=== PATIENT | male | born 1960 | race Caucasian/White ===

== ENCOUNTER → 2017-12-08 12:16 | Outpatient (CLI) | payer BC, SELFPAY ==
--- NOTE | 2017-12-08 12:21 | US_ITS ---
STUDY: RENAL ULTRASOUND - COMPLETE REASON FOR EXAM: Male, 57 years old. TECHNIQUE: Ultrasound evaluation of the kidneys was performed with real-time and static oliveros-scale imaging. COMPARISON: None. FINDINGS: RIGHT KIDNEY: Normal location of the right kidney, which is normal in size. The right kidney measures 11.1 x 5.4 x 3.9 cm. There is a normal cortex of the right kidney. The renal cortex measures 1.5 cm. A small 1 cm cyst. There are no right renal calculi. There is no right hydronephrosis. LEFT KIDNEY: Normal location of the left kidney, which is normal in size. The left kidney measures 10.5 x 4.9 x 5.2 cm. There is a normal cortex of the left kidney. The renal cortex measures 1.8 cm. 1.8 cm cyst There are no left renal calculi. There is no left hydronephrosis. BLADDER: The distended urinary bladder has a volume of 459 ml. The empty urinary bladder has a volume of ml. There is a normal wall thickness of the distended urinary bladder. There is no demonstrated mass within the urinary bladder. There are no demonstrated bladder calculi. US/Kidney and Bladder IMPRESSION: Bilateral small renal cysts. No hydronephrosis. The urinary bladder fills well to a capacity of almost 460 mL Electronically Signed: Gilberto lEi, at 7:26 EDT Tel , Service support ,
== END ==
PROVIDERS: Family Provider Internal Medicine; PCP Internal Medicine; Visit Provider Internal Medicine
DX: N28.9 Disorder of kidney and ureter, unspecified (principal)
CPT/HCPCS: 76770

== ENCOUNTER → 2018-06-02 06:07 | Outpatient (CLI) | payer OTHER, SELFPAY ==
--- NOTE | 2018-06-02 09:17 | STRESSREP_ITS ---
Stress Test Report Exercise myocardial perfusion stress testing. 57-year-old lady with a history of coronary artery disease. Medications: Metoprolol, losartan, hydrochlorothiazide, aspirin,. He has stress protocol: Resting EKG demonstrates normal sinus rhythm with a rate of 66 bpm and left bundle branch block resting blood pressure 142/90 mmHg. The patient exercised according to the regular Alberto protocol for total duration of 8 minutes and 30 seconds completing 2 minutes and 30 seconds into stage III of the Alberto protocol. The maximum heart rate attained was 155 bpm which was 95% of maximum predicted heart rate maximum workload was 10.1 [address] equivalents[address] At [address] changes noted for left bundle branch block were present at peak exercise ST changes for the same were present. The resting blood pressure was 142/90 with a peak blood pressure 180/72. No clinical angina was noted the test was terminated due to leg fatigue Myocardial perfusion protocol. 14.7 mCi of Supervisor Dried Yeast 99 sestamibi was injected at rest. The patient exercised according to regular Alberto protocol for 8-1/2 minutes at peak exercise 44.3 mCi of technetium 99m sestamibi was injected stress images were obtained stress and rest images were reconstructed and compared in the short axis vertical long horizontal long axis. Gated images were also obtained the next Perfusion SPECT analysis. Review of the images demonstrate normal perfusion noted in the septum lateral wall anterior wall and inferior wall. A small portion of the anterior septal wall and distal anterolateral wall appeared to have mild reduction of perfusion on the stress images and the resting images to a similar extent. The above may be secondary to a left bundle branch block abnormality no obvious ischemia is noted. Gated SPECT analysis: The gated ejection fraction is noted to be 67% with an IVCD patent. Conclusion: Normal exercise myocardial perfusion stress test at a high workload no obvious ischemia noted. Preserved ejection fraction.
--- OUTSIDE RECORDS SUMMARY | 2018-07-19 02:02 | XMS RPT_ITS | Continuity of Care Document ---
:1960 Author Organization [facility] Address [facility] [address] [place] [address] Phone Care Team Providers Name Role Phone Jessica Redmond DO Unavailable TimboArpitaon Unavailable Gravius, Mar Unavailable Unavailable Long GRIEVANCE MANAGER, Iris L Unavailable Unavailable Emick, Federico Unavailable Unavailable Unavailable Unavailable Problems Name Dates Details BMI 30.0-30.9,adult (Z68.30, V85.30) Status: Active BMI 30.0-30.9,adult (Z68.30, V85.30) Status: Active CKD (chronic kidney disease), stage III (N18.3, 585.3) Status: Active Colon polyps (K63.5, 211.3) Comments: hemocult 09/05 negative - last scope 2012-- due in 2018 Status: Active Coronary artery disease (I25.10, 414.00) Comments: xcath show 45% block in single artery -, stress good 11-14 Status: Active Coronary artery disease, non-occlusive (I25.10, 414.00) Comments: discharged from cardio-- 40-50 % occlusion on cath LAD in 2010-aggressvie risk factor treatment Status: Active Encounter for routine history and physical exam for male (Z00.00, V70.0) Comments: colonoscopy 8-13 polyps repeat 5 years. psa/rectal 11-15 Status: Active Encounter for screening fecal occult blood testing (Z12.11, V76.51) Status: Active Encounter for screening for malignant neoplasm of colon (Renamed from Special screening for malignant neoplasms, colon) (Z12.11, V76.51) Status: Active Encounter for screening for malignant neoplasm of prostate (Renamed from Screening for prostate cancer) (Z12.5, V76.44) Status: Active History of tobacco abuse (Z87.891, V15.82) Comments: smoke 2 pack a day 25 years quit quit 2011 Status: Active Hypercholesteremia (E78.00, 272.0) Comments: on fish oil and crestor-- no other meds for now per pt -- will work on diet and exercise--its summer now so one more chance before more meds Status: Active Hyperkalemia (E87.5, 276.7) Status: Active Hypertension with heart disease (I11.9, 402.90) Status: Active Left bundle branch block (Renamed from Block, bundle branch, 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, 426.3) Comments: workk up 2010 with cath showed no signif blockage for ischemia to be causing Status: Active Need for prophylactic vaccination and inoculation against influenza (Renamed from Need for immunization against influenza) (Z23, V04.81) Status: Active NEED FOR PROPHYLACTIC VACCINATION AND INOCULATION AGAINST INFLUENZA (V04.81) (Renamed from Need for prophylactic vaccination and inoculation against influenza) (Z23, V04.81) Status: Active Nonsmoker (Z78.9, V49.89) Status: Active Obesity, unspecified (E66.9, 278.00) Comments: lost 10 opunds. back to exercise increase now to jogging with normal stress. eating better. smaller portions. hold off carbs. Status: Active Proteinuria (R80.9, 791.0) Comments: non nephrotic. watching getting BP better Status: Active Renal insufficiency (N28.9, 593.9) Comments: prob related to pre-renal fasting for labs - elizabeth Status: Active Type 2 diabetes mellitus without complication (E11.9, 250.00) Comments: stable refer to opthal again not go. had ekg 11-15, on ARB and Statin Status: Active Vitamin D deficiency (E55.9, 268.9) Comments: improving taking 6K daily Status: Active Medications Name Dates Details ASPIRIN EC LO-DOSE, 81MG (Oral Tablet Delayed Release) [address] daily for 0 days Quantity: 30 {Tablet_DR} Refills: 0 Ordered:12-May-2014 Charlee Cuellar MD Start : 12-May-2014 Active Crestor 40 MG Oral Tablet 1 (one) Tablet daily for 0 days Quantity: 90 {Tablet} Refills: 1 Ordered:10-Dec-2017 Shelley Redmond DO, DO, Kathleen Start : 10-Dec-2017 Active Januvia 100 MG Oral Tablet 1 (one) Tablet qam for 0 days Quantity: 30 {Tablet} Refills: 4 Ordered:20-May-2018 Shelley Redmond DO, DO, Kathleen Start : 20-May-2018 Active Losartan Potassium-HCTZ 100-25 MG Oral Tablet 1 (one) Tablet Tablet QD for 0 days Quantity: 30 {Tablet} Refills: 3 Ordered:17-Feb-2018 Monroe Munroe LPNn L Start : 17-Feb-2018 Active MetFORMIN HCl 500 MG Oral Tablet 1 (one) Tablet bid for 0 days Quantity: 180 {Tablet} Refills: 0 Ordered:07-Jun-2018 Shelley Redmond DO, DO, Kathleen Start : 07-Jun-2018 Active Metoprolol Succinate ER 50 MG Oral Tablet Extended Release 24 Hour 1 Tablet ER 24HR at night for 0 days Quantity: 90 {Tablet} Refills: 3 Ordered:27-May-2018 Shelley Redmond DO, DO, Kathleen Start : 27-May-2018 Active CHANTIX CONTINUING MONTH MICHAEL, 1MG (Oral Tablet) 1 Tablet bid for 0 days Quantity: 60 {Tablet} Refills: 1 Ordered:16-Jan-2012 LAURITA Alberts Start : 17-Oct-2011 End : 16-Jan-2012 Inactive CHANTIX STARTING MONTH MICHAEL, 0.5 MG X 11 &1 MG X 42 (Oral Tablet) 1 Tablet uad for 0 days Quantity: 60 {Tablet} Refills: 0 Ordered:16-Jan-2012 LAURITA Alberts Start : 17-Oct-2011 End : 16-Jan-2012 Inactive HydroCHLOROthiazide 12.5 MG Oral Tablet 1 (one) Tablet in am for 0 days Quantity: 90 {Tablet} Refills: 0 Ordered:24-Mar-2018 Long GRIEVANCE MANAGER Iris L Start : 15-Mar-2018 End : 24-Mar-2018 Inactive Comments:DID COMBO RX LIPITOR, 80MG (Oral Tablet) 1 Tablet at night for 0 days Quantity: 90 {Tablet} Refills: 3 Ordered:11-May-2015 LAURITA Alberts Start : 28-Jul-2014 End : 11-May-2015 Inactive Comments:okay for generic PRAVASTATIN SODIUM, 80MG (Oral Tablet) 1 Tablet qd for 0 days Quantity: 90 {Tablet} Refills: 3 Ordered:03-Dec-2012 Debbie Cisneros Start : 02-Sep-2012 End : 03-Dec-2012 Inactive LISINOPRIL, 10MG (Oral Tablet) 1 Tablet BID for 0 days Quantity: 60 {Tablet} Refills: 3 Ordered:03-Apr-2011 Charlee Cuellar MD Start : 03-Apr-2011 End : 03-Apr-2011 Discontinued LOSARTAN POTASSIUM, 100MG (Oral Tablet) 1 Tablet in am for 0 days Quantity: 90 {Tablet} Refills: 3 Ordered:10-Nov-2014 Charlee Cuellar MD Start : 10-Nov-2014 End : 10-Nov-2014 Discontinued Valsartan 320 MG Oral Tablet 1 (one) Tablet daily for 0 days Quantity: 90 {Tablet} Refills: 1 Ordered:17-Feb-2018 Shelley Rdemond DO, DO, Kathleen Start : 17-Feb-2018 End : 17-Feb-2018 Discontinued Comments:RECAL Allergies and Adverse Reactions Name Dates Details No Known Allergies (Allergy) Onset: 13-Feb-2011 Status: Active No Known Drug Allergies (Allergy) Onset: 10-Nov-2014 Status: Active Past Medical History Name Dates Details Benign essential HTN (I10, 401.1) Comments: with protienuria and other risk factors. BP at home down now 110's/60-70. Status: Inactive as of 12-May-2016 BMI 31.0-31.9,adult (Z68.31, V85.31) Status: Inactive as of 15-Apr-2017 BMI 32.0-32.9,adult (Z68.32, V85.32) Status: Inactive as of 24-Mar-2018 Impaired fasting glucose (R73.01, 790.21) Comments: hga1c 6.0 intolerant. Status: Inactive as of 10-Nov-2013 Limb pain (M79.609, 729.5) Status: Inactive as of 05-Aug-2012 Need for Tdap vaccination (Renamed from Need for hsyebcwjio-mstzmxo-mcwdrpylj (Tdap) vaccine, adult/adolescent) (Z23, V06.1) Status: Inactive as of 28-Jun-2015 Nicotine dependence, uncomplicated, unspecified nicotine product type (F17.200, 305.1) Comments: now done as of 12-01 Status: Inactive as of 16-Jan-2012 Other abnormal glucose (R73.09, 790.29) Comments: watching carbs and starches. hga1c good 6.0 Status: Inactive as of 10-Feb-2014 SOB (shortness of breath) on exertion (R06.02, 786.05) Comments: has every risk factor. not notice cath okay Status: Inactive as of 03-Apr-2011 Trigger finger (M65.30, 727.03) Status: Inactive as of 05-Aug-2012 Unspecified Diagnosis Status: Inactive as of 10-Nov-2013 Procedures Procedure Dates Details Colonoscopy Completed Comments: 02-15-13 Dr. Jerome rec. repeat 5 years Date Value Details 11-May-2015 EKG (73992) Result: [MEASUREMENTS ANALYSIS] Date of Test: 05/11/2015 07:26:19; Heart Rate: 67; [place] Interval: 176; QRS: 140; QT Interval: 414; Corrected QT Interval (QTc): 426; P Wave [place]: 58; QRS Wave [place]: -45; T Wave Axi s: 70; Blood Pressure: 160/110 [ECG DIAGNOSTIC STATEMENTS] Date of Test: 05/11/2015 07:26:19; Summary: Sinus Rhythm -Left bundle branch block and left axis. ABNORMAL Family History Unknown Family Member Name Dates Details Brother 1 Comments: older, heartdisease. Status: Active Father Comments: heart disease age 58 Status: Active Mother Comments: high cholesterol, heart disease Status: Active Social History Name Dates Details Alcohol Use: Occasional alcohol use. Status: Active Caffeine Use Comments: 1 pot coffee qd Status: Active Current Work/Study Status: Full-time. Comments: [employer] Status: Active Exercise History: Does not exercise. Status: Active Living Situation: Lives with spouse. Comments: Status: Active No Drug Use Status: Active Tobacco Use: Former smoker. Status: Active Smoking Status Name Dates Details Former smoker Vital Signs Date Test Result Details :56 Temperature 98 f Comments: Method: Temporal Pulse 77 /min Comments: Pattern: Regular Respiration Rate 18 /min Comments: Pattern: Unlabored O2 SAT 97 % Comments: Room air BP Systolic 158 mm[Hg] Comments: Patient Position: Sitting; Cuff Location: Left Arm; Cuff Size: Standard BP Diastolic 102 mm[Hg] Comments: Patient Position: Sitting; Cuff Location: Left Arm; Cuff Size: Standard Weight 216 lb Height 71 in Body Mass Index Calculated 30.13 kg/m2 Body Surface Area Calculated 2.18 m2 :10 Comments: readings from home 103-120s/60-70s on average with 2 lows of 97/62 and 92/60 Temperature 97.2 f Comments: Method: Axillary Pulse 72 /min Comments: Pattern: Regular Respiration Rate 16 /min Comments: Pattern: Unlabored O2 SAT 98 % Comments: Room air BP Systolic 146 mm[Hg] Comments: Patient Position: Sitting; Cuff Location: Left Arm; Cuff Size: Standard BP Diastolic 84 mm[Hg] Comments: Patient Position: Sitting; Cuff Location: Left Arm; Cuff Size: Standard Weight 216 lb Height 71 in Body Mass Index Calculated 30.13 kg/m2 Body Surface Area Calculated 2.18 m2 :47 Pulse 72 /min Comments: Pattern: Regular Respiration Rate 18 /min Comments: Pattern: Unlabored O2 SAT 96 % Comments: Room air BP Systolic 128 mm[Hg] Comments: Patient Position: Sitting; Cuff Location: Left Arm; Cuff Size: Large BP Diastolic 80 mm[Hg] Comments: Patient Position: Sitting; Cuff Location: Left Arm; Cuff Size: Large Weight 215.125 lb Height 71 in Body Mass Index Calculated 30 kg/m2 Body Surface Area Calculated 2.18 m2 :11 Pulse 75 /min Comments: Pattern: Regular Respiration Rate 18 /min Comments: Pattern: Unlabored O2 SAT 96 % Comments: Room air BP Systolic 152 mm[Hg] Comments: Patient Position: Sitting; Cuff Location: Left Arm; Cuff Size: Standard BP Diastolic 82 mm[Hg] Comments: Patient Position: Sitting; Cuff Location: Left Arm; Cuff Size: Standard Weight 230.375 lb Height 71 in Body Mass Index Calculated 32.13 kg/m2 Body Surface Area Calculated 2.24 m2 :07 Temperature 97.3 f Pulse 66 /min Comments: Pattern: Regular Respiration Rate 18 /min Comments: Pattern: Unlabored O2 SAT 95 % Comments: Room air BP Systolic 116 mm[Hg] Comments: Patient Position: Sitting; Cuff Location: Left Arm; Cuff Size: Standard BP Diastolic 78 mm[Hg] Comments: Patient Position: Sitting; Cuff Location: Left Arm; Cuff Size: Standard Weight 226 lb Height 71 in Body Mass Index Calculated 31.52 kg/m2 Body Surface Area Calculated 2.22 m2 :00 Temperature 97.9 f Comments: Method: Temporal Pulse 77 /min Comments: Pattern: Regular Respiration Rate 16 /min Comments: Pattern: Unlabored O2 SAT 96 % Comments: Room air BP Systolic 142 mm[Hg] Comments: Patient Position: Sitting; Cuff Location: Left Arm; Cuff Size: Standard BP Diastolic 88 mm[Hg] Comments: Patient Position: Sitting; Cuff Location: Left Arm; Cuff Size: Standard Weight 225.25 lb Height 71 in Body Mass Index Calculated 31.42 kg/m2 Body Surface Area Calculated 2.22 m2 :54 Pulse 69 /min Comments: Pattern: Regular Respiration Rate 18 /min Comments: Pattern: Unlabored O2 SAT 95 % Comments: Room air BP Systolic 130 mm[Hg] Comments: Patient Position: Sitting; Cuff Location: Left Arm; Cuff Size: Large BP Diastolic 82 mm[Hg] Comments: Patient Position: Sitting; Cuff Location: Left Arm; Cuff Size: Large Weight 220.25 lb Height 71 in Body Mass Index Calculated 30.72 kg/m2 Body Surface Area Calculated 2.2 m2 :19 Pulse 62 /min Comments: Pattern: Regular Respiration Rate 18 /min Comments: Pattern: Unlabored O2 SAT 98 % Comments: Room air BP Systolic 122 mm[Hg] Comments: Patient Position: Sitting; Cuff Location: Left Arm; Cuff Size: Standard BP Diastolic 82 mm[Hg] Comments: Patient Position: Sitting; Cuff Location: Left Arm; Cuff Size: Standard Weight 217.125 lb Height 71 in Body Mass Index Calculated 30.28 kg/m2 Body Surface Area Calculated 2.18 m2 :54 Temperature 97.8 f Comments: Method: Temporal Pulse 69 /min Comments: Pattern: Regular Respiration Rate 15 /min Comments: Pattern: Unlabored O2 SAT 97 % Comments: Room air BP Systolic 122 mm[Hg] Comments: Patient Position: Sitting; Cuff Location: Left Arm; Cuff Size: Standard BP Diastolic 74 mm[Hg] Comments: Patient Position: Sitting; Cuff Location: Left Arm; Cuff Size: Standard Weight 236 lb Height 71 in Body Mass Index Calculated 32.91 kg/m2 Body Surface Area Calculated 2.26 m2 :07 Temperature 97.3 f Comments: Method: Temporal Pulse 74 /min Comments: Pattern: Regular Respiration Rate 20 /min Comments: Pattern: Unlabored O2 SAT 98 % Comments: Room air BP Systolic 120 mm[Hg] Comments: Patient Position: Sitting; Cuff Location: Left Arm; Cuff Size: Large BP Diastolic 80 mm[Hg] Comments: Patient Position: Sitting; Cuff Location: Left Arm; Cuff Size: Large Weight 224 lb Height 71 in Body Mass Index Calculated 31.24 kg/m2 Body Surface Area Calculated 2.21 m2 :55 Temperature 97.6 f Comments: Method: Temporal Pulse 68 /min Comments: Pattern: Regular Respiration Rate 18 /min Comments: Pattern: Unlabored O2 SAT 97 % Comments: Room air BP Systolic 142 mm[Hg] Comments: Patient Position: Sitting; Cuff Location: Left Arm; Cuff Size: Large BP Diastolic 84 mm[Hg] Comments: Patient Position: Sitting; Cuff Location: Left Arm; Cuff Size: Large Weight 224 lb Height 71 in Body Mass Index Calculated 31.24 kg/m2 Body Surface Area Calculated 2.21 m2 :53 BP Systolic 138 mm[Hg] Comments: Patient Position: Sitting; Cuff Location: Left Arm; Cuff Size: Standard BP Diastolic 78 mm[Hg] Comments: Patient Position: Sitting; Cuff Location: Left Arm; Cuff Size: Standard Weight 227 lb Height 71 in Body Mass Index Calculated 31.66 kg/m2 Body Surface Area Calculated 2.23 m2 :09 Temperature 97.6 f Comments: Method: Temporal Pulse 84 /min Comments: Pattern: Regular Respiration Rate 18 /min Comments: Pattern: Unlabored O2 SAT 97 % Comments: Room air BP Systolic 160 mm[Hg] Comments: Patient Position: Sitting; Cuff Location: Left Arm; Cuff Size: Large BP Diastolic 110 mm[Hg] Comments: Patient Position: Sitting; Cuff Location: Left Arm; Cuff Size: Large Weight 227 lb Height 71 in Body Mass Index Calculated 31.66 kg/m2 Body Surface Area Calculated 2.23 m2 :36 BP Systolic 138 mm[Hg] Comments: Patient Position: Sitting BP Diastolic 88 mm[Hg] Comments: Patient Position: Sitting :59 Temperature 98.3 f Comments: Method: Oral Pulse 70 /min Comments: Pattern: Regular Respiration Rate 16 /min Comments: Pattern: Unlabored O2 SAT 98 % Comments: Room air BP Systolic 148 mm[Hg] Comments: Patient Position: Sitting; Cuff Location: Left Arm; Cuff Size: Standard BP Diastolic 80 mm[Hg] Comments: Patient Position: Sitting; Cuff Location: Left Arm; Cuff Size: Standard Weight 221 lb Height 71 in Body Mass Index Calculated 30.82 kg/m2 Body Surface Area Calculated 2.2 m2 :59 Temperature 97.6 f Comments: Method: Temporal Pulse 74 /min Comments: Pattern: Regular Respiration Rate 20 /min Comments: Pattern: Unlabored BP Systolic 126 mm[Hg] Comments: Patient Position: Sitting; Cuff Location: Left Arm; Cuff Size: Standard BP Diastolic 90 mm[Hg] Comments: Patient Position: Sitting; Cuff Location: Left Arm; Cuff Size: Standard Weight 226 lb Height 71 in Body Mass Index Calculated 31.52 kg/m2 Body Surface Area Calculated 2.22 m2 :05 Temperature 97.6 f Comments: Method: Oral Pulse 74 /min Comments: Pattern: Regular Respiration Rate 18 /min Comments: Pattern: Unlabored BP Systolic 130 mm[Hg] Comments: Patient Position: Sitting; Cuff Location: Left Arm; Cuff Size: Standard BP Diastolic 90 mm[Hg] Comments: Patient Position: Sitting; Cuff Location: Left Arm; Cuff Size: Standard Weight 225 lb Height 71 in Body Mass Index Calculated 31.38 kg/m2 Body Surface Area Calculated 2.22 m2 :36 Temperature 97.6 f Comments: Method: Oral Pulse 68 /min Comments: Pattern: Regular Respiration Rate 20 /min Comments: Pattern: Unlabored BP Systolic 160 mm[Hg] Comments: Patient Position: Sitting; Cuff Location: Left Arm; Cuff Size: Standard BP Diastolic 100 mm[Hg] Comments: Patient Position: Sitting; Cuff Location: Left Arm; Cuff Size: Standard Weight 235 lb Height 71 in Body Mass Index Calculated 32.78 kg/m2 Body Surface Area Calculated 2.26 m2 :09 Temperature 97.6 f Comments: Method: Oral Pulse 70 /min Comments: Pattern: Regular Respiration Rate 18 /min Comments: Pattern: Unlabored BP Systolic 114 mm[Hg] Comments: Patient Position: Sitting; Cuff Location: Left Arm; Cuff Size: Standard BP Diastolic 78 mm[Hg] Comments: Patient Position: Sitting; Cuff Location: Left Arm; Cuff Size: Standard Weight 226 lb Height 71 in Body Mass Index Calculated 31.52 kg/m2 Body Surface Area Calculated 2.22 m2 :31 Temperature 98.2 f Comments: Method: Oral Pulse 63 /min Comments: Pattern: Regular Respiration Rate 16 /min Comments: Pattern: Unlabored O2 SAT 98 % Comments: Room air BP Systolic 122 mm[Hg] Comments: Patient Position: Sitting; Cuff Location: Left Arm; Cuff Size: Standard BP Diastolic 82 mm[Hg] Comments: Patient Position: Sitting; Cuff Location: Left Arm; Cuff Size: Standard Weight 214 lb Height 71 in Body Mass Index Calculated 29.85 kg/m2 Body Surface Area Calculated 2.17 m2 :36 Temperature 97.6 f Comments: Method: Oral Pulse 68 /min Comments: Pattern: Regular Respiration Rate 18 /min Comments: Pattern: Unlabored BP Systolic 124 mm[Hg] Comments: Patient Position: Sitting; Cuff Location: Left Arm; Cuff Size: Standard BP Diastolic 82 mm[Hg] Comments: Patient Position: Sitting; Cuff Location: Left Arm; Cuff Size: Standard Weight 218 lb Height 71 in Body Mass Index Calculated 30.4 kg/m2 Body Surface Area Calculated 2.19 m2 :08 Temperature 98.2 f Comments: Method: Oral Pulse 64 /min Comments: Pattern: Regular Respiration Rate 16 /min Comments: Pattern: Unlabored BP Systolic 138 mm[Hg] Comments: Patient Position: Sitting; Cuff Location: Left Arm; Cuff Size: Standard BP Diastolic 78 mm[Hg] Comments: Patient Position: Sitting; Cuff Location: Left Arm; Cuff Size: Standard Weight 235 lb Height 71 in Body Mass Index Calculated 32.78 kg/m2 Body Surface Area Calculated 2.26 m2 :59 Temperature 97.8 f Comments: Method: Oral Pulse 70 /min Comments: Pattern: Regular Respiration Rate 18 /min Comments: Pattern: Unlabored BP Systolic 120 mm[Hg] Comments: Patient Position: Sitting; Cuff Location: Left Arm; Cuff Size: Standard BP Diastolic 78 mm[Hg] Comments: Patient Position: Sitting; Cuff Location: Left Arm; Cuff Size: Standard Weight 230 lb Height 71 in Body Mass Index Calculated 32.08 kg/m2 Body Surface Area Calculated 2.24 m2 :33 Temperature 97.6 f Comments: Method: Oral Pulse 68 /min Comments: Pattern: Regular Respiration Rate 20 /min Comments: Pattern: Unlabored BP Systolic 120 mm[Hg] Comments: Patient Position: Sitting; Cuff Location: Left Arm; Cuff Size: Standard BP Diastolic 80 mm[Hg] Comments: Patient Position: Sitting; Cuff Location: Left Arm; Cuff Size: Standard Weight 220 lb Height 71 in Body Mass Index Calculated 30.68 kg/m2 Body Surface Area Calculated 2.2 m2 :20 Temperature 97.6 f Comments: Method: Oral Pulse 70 /min Comments: Pattern: Regular Respiration Rate 18 /min Comments: Pattern: Unlabored BP Systolic 124 mm[Hg] Comments: Patient Position: Sitting; Cuff Location: Left Arm; Cuff Size: Standard BP Diastolic 80 mm[Hg] Comments: Patient Position: Sitting; Cuff Location: Left Arm; Cuff Size: Standard Weight 218 lb Height 71 in Body Mass Index Calculated 30.4 kg/m2 Body Surface Area Calculated 2.19 m2 :49 Temperature 96.2 f Comments: Method: Oral Pulse 66 /min Comments: Pattern: Regular Respiration Rate 18 /min Comments: Pattern: Unlabored BP Systolic 128 mm[Hg] Comments: Patient Position: Sitting; Cuff Location: Left Arm; Cuff Size: Standard BP Diastolic 80 mm[Hg] Comments: Patient Position: Sitting; Cuff Location: Left Arm; Cuff Size: Standard Weight 217 lb Height 71 in Body Mass Index Calculated 30.27 kg/m2 Body Surface Area Calculated 2.18 m2 :31 Temperature 97.6 f Comments: Method: Oral Pulse 72 /min Comments: Pattern: Regular Respiration Rate 18 /min Comments: Pattern: Unlabored BP Systolic 144 mm[Hg] Comments: Patient Position: Sitting; Cuff Location: Left Arm; Cuff Size: Standard BP Diastolic 90 mm[Hg] Comments: Patient Position: Sitting; Cuff Location: Left Arm; Cuff Size: Standard Weight 220 lb Height 71 in Body Mass Index Calculated 30.68 kg/m2 Body Surface Area Calculated 2.2 m2 :59 Temperature 97.9 f Comments: Method: Oral Pulse 78 /min Comments: Pattern: Regular Respiration Rate 20 /min Comments: Pattern: Unlabored BP Systolic 144 mm[Hg] Comments: Patient Position: Sitting; Cuff Location: Left Arm; Cuff Size: Standard BP Diastolic 100 mm[Hg] Comments: Patient Position: Sitting; Cuff Location: Left Arm; Cuff Size: Standard Weight 220 lb Height 71 in Body Mass Index Calculated 30.68 kg/m2 Body Surface Area Calculated 2.2 m2 Results Date Description Value Details :49 HgA1C , Office (37842) HgA1C , Office 6.1 % (Normal) Range: 4.6 - 7.1 :49 Blood Glucose , Office (13741) Blood Glucose , Office 135 (Normal) :49 HgA1C , Office (42922) HgA1C , Office 5.9 % (Normal) Range: 4.6 - 7.1 :49 Blood Glucose , Office (05763) Blood Glucose , Office 115 (Normal) :26 POTASSIUM SERUM (63960) Comments: PATIENT NOT FASTINGPERFORMED BY: [facility] [id number] Potassium 4.5 mmol/L (Normal) Range: 3.5-5.2 :52 Albumin/Creatinine Ratio,Urine Comments: PATIENT WAS FASTINGPERFORMED BY: [id number] [facility] [id number] Alb/Creat Ratio 22.6 {mg/g_creat} (Normal) Range: 0.0-30.0 Albumin, Urine 12.8 ug/mL (Normal) Creatinine, Urine 56.6 mg/dL (Normal) :52 CBC With Differential/Platelet Comments: PATIENT WAS FASTINGPERFORMED BY: [facility] CenterYgfazs7305 [facility] [id number] Information: CLIENT INTERNET DOWN Immature Grans (Abs) 0.0 {x10E3/uL} (Normal) Range: 0.0-0.1 Immature Granulocytes 0 % (Normal) Baso (Absolute) 0.0 {x10E3/uL} (Normal) Range: 0.0-0.2 Eos (Absolute) 0.1 {x10E3/uL} (Normal) Range: 0.0-0.4 Monocytes(Absolute) 0.5 {x10E3/uL} (Normal) Range: 0.1-0.9 Lymphs (Absolute) 2.5 {x10E3/uL} (Normal) Range: 0.7-3.1 Neutrophils (Absolute) 4.7 {x10E3/uL} (Normal) Range: 1.4-7.0 Basos 1 % (Normal) Eos 1 % (Normal) Monocytes 6 % (Normal) Lymphs 32 % (Normal) Neutrophils 60 % (Normal) Platelets 211 {x10E3/uL} (Normal) Range: 150-379 RDW 13.5 % (Normal) Range: 12.3-15.4 MCHC 34.4 g/dL (Normal) Range: 31.5-35.7 MCH 31.6 pg (Normal) Range: 26.6-33.0 MCV 92 fL (Normal) Range: 79-97 Hematocrit 41.9 % (Normal) Range: 37.5-51.0 Hemoglobin 14.4 g/dL (Normal) Range: 13.0-17.7 RBC 4.55 {x10E6/uL} (Normal) Range: 4.14-5.80 WBC 7.8 {x10E3/uL} (Normal) Range: 3.4-10.8 [id number] Comp. Metabolic Panel (14) Comments: PATIENT WAS FASTINGPERFORMED BY: [facility]Co[facility] CenterCbrzro7422 [facility] [id number] ALT (SGPT) 29 [iU]/L (Normal) Range: 0-44 AST (SGOT) 22 [iU]/L (Normal) Range: 0-40 Alkaline Phosphatase 61 [iU]/L (Normal) Range: 39-117 Bilirubin, Total 0.6 mg/dL (Normal) Range: 0.0-1.2 A/G Ratio 2.2 (Normal) Range: 1.2-2.2 Globulin, Total 2.2 g/dL (Normal) Range: 1.5-4.5 Albumin 4.8 g/dL (Normal) Range: 3.5-5.5 Protein, Total 7.0 g/dL (Normal) Range: 6.0-8.5 Calcium 10.3 mg/dL (Abnormal) Range: 8.7-10.2 Carbon Dioxide, Total 23 mmol/L (Normal) Range: 20-29 Chloride 103 mmol/L (Normal) Range: 96-106 Potassium 5.3 mmol/L (Abnormal) Range: 3.5-5.2 Sodium 141 mmol/L (Normal) Range: 134-144 BUN/Creatinine Ratio 17 (Normal) Range: 9-20 eGFR If Africn Am 62 mL/min/1.73 (Normal) eGFR If NonAfricn Am 54 mL/min/1.73 (Abnormal) Creatinine 1.44 mg/dL (Abnormal) Range: 0.76-1.27 BUN 25 mg/dL (Abnormal) Range: 6-24 Glucose 110 mg/dL (Abnormal) Range: 65-99 63-Smd-006040:52 Lipid Panel With LDL/HDL Comments: PATIENT WAS FASTINGPERFORMED BY: [facility] [id number] Ratio LDL/HDL Ratio 1.4 {ratio} (Normal) Range: 0.0-3.6 Comments: LDL/HDL Ratio Men Women 1/2 Avg.Risk 1.0 1.5 Av g.Risk 3.6 3.2 2X Avg.Risk 6.2 5.0 3X Avg.Risk 8.0 6.1 LDL Cholesterol Calc 43 mg/dL (Normal) Range: 0-99 VLDL Cholesterol Jose De Jesus 32 mg/dL (Normal) Range: 5-40 HDL Cholesterol 30 mg/dL (Abnormal) Triglycerides 161 mg/dL (Abnormal) Range: 0-149 Cholesterol, Total 105 mg/dL (Normal) Range: 100-199 12-Ddn-135516:52 Microscopic Examination Comments: PATIENT WAS FASTINGPERFORMED BY: [facility] [id number] Bacteria Few (Normal) Mucus Threads Present (Normal) Epithelial Cells (non None seen {/hpf} Range: 0 - 10 renal) (Normal) RBC None seen {/hpf} Range: 0 - 2 (Normal) WBC 0-5 {/hpf} (Normal) Range: 0 - 5 TSH 2.030 {uIU/mL} Comments: PATIENT WAS FASTINGPERFORMED BY: [facility] [id number] 3:52 (Normal) Range: 0.450-4.500 19-Zhs-022340:52 Urinalysis, Complete Comments: PATIENT WAS FASTINGPERFORMED BY: [facility] [id number] Microscopic Examination See below: (Normal) Comments: Microscopic was indicated and was performed. Microscopic Examination MICRON (Normal) Comments: Microscopic follows if indicated. Nitrite, Urine Negative (Normal) Urobilinogen,Semi-Qn 0.2 mg/dL (Normal) Range: 0.2-1.0 Bilirubin Negative (Normal) Occult Blood Negative (Normal) Ketones Negative (Normal) Glucose Negative (Normal) Protein Negative (Normal) WBC Esterase Negative (Normal) Appearance Clear (Normal) Urine-Color Yellow (Normal) pH 5.5 (Normal) Range: 5.0-7.5 Specific Norman 1.014 (Normal) Range: 1.005-1.030 Vitamin D, 25-Hydroxy 71.0 ng/mL (Normal) Comments: PATIENT WAS FASTINGPERFORMED BY: [facility] [id number] 3:52 Range: 30.0-100.0 Comments: Vitamin D deficiency has been defined by the [place] ofMedicine and an Endocrine Society practice guideline as alevel of serum 25-OH vitamin D less than 20 ng/mL (1,2).The Endocrine Society went on to further define vitamin Dinsufficiency as a level between 21 and 29 ng/mL (2).1. IOM ([place] of Medicine). 2010. Dietary reference intakes for calcium and D. [place]: The National Academies Press.2. Loki MF, Diane NC, Jessie CARTER, et al. Evaluation, treatment, and prevention of vitamin D deficiency: an Endocrine Society clinical practice guideline. JCEM. 2010; 96(7):1911-30. 62-Dub-90172:21 MARNIE (ANTINUCLEAR ANTIBODY) Comments: PATIENT NOT FASTINGPERFORMED BY: [facility] [id number] ([id number]) MARNIE Direct Negative (Normal) 52-Leo-209940:14 Metabolic Panel, Basic Comments: PATIENT NOT FASTINGPERFORMED BY: [employer] Jeqtod7835 [facility] [id number] (19443) Calcium 9.9 mg/dL (Normal) Range: 8.7-10.2 Carbon Dioxide, Total 24 mmol/L (Normal) Range: 20-29 Comments: Please note reference interval change Chloride 103 mmol/L (Normal) Range: 96-106 Potassium 5.0 mmol/L (Normal) Range: 3.5-5.2 Sodium 142 mmol/L (Normal) Range: 134-144 BUN/Creatinine Ratio 12 (Normal) Range: 9-20 eGFR If Africn Am 63 mL/min/1.73 (Normal) eGFR If NonAfricn Am 54 mL/min/1.73 (Abnormal) Creatinine 1.42 mg/dL (Abnormal) Range: 0.76-1.27 BUN 17 mg/dL (Normal) Range: 6-24 Glucose 112 mg/dL (Abnormal) Range: 65-99 :14 HgA1C , Office (27837) HgA1C , Office 6.0 % (Normal) Range: 4.6 - 7.1 :14 Blood Glucose , Office (80689) Blood Glucose , Office 128 (Normal) 97-Emw-64455:10 Microscopic Examination Comments: PATIENT WAS FASTINGPERFORMED BY: [employer] Eujqub6788 [facility] [id number] Bacteria None seen (Normal) Mucus Threads Present (Normal) Epithelial Cells (non renal) None seen {/hpf} (Normal) Range: 0 - 10 RBC 0-2 {/hpf} (Normal) Range: 0 - 2 WBC 0-5 {/hpf} (Normal) Range: 0 - 5 34-Ywv-98862:10 CALCIFEDIOL (10768) Comments: PATIENT WAS FASTINGPERFORMED BY: [employer] Ivrkix0584 [facility] [id number] Vitamin D, 25-Hydroxy 48.4 ng/mL (Normal) Range: 30.0-100.0 Comments: Vitamin D deficiency has been defined by the [place] ofMedicine and an Endocrine Society practice guideline as alevel of serum 25-OH vitamin D less than 20 ng/mL (1,2).The Endocrine Society went on to further define vitamin Dinsufficiency as a level between 21 and 29 ng/mL (2).1. IOM ([place] of Medicine). 2010. Dietary reference intakes for calcium and D. [place]: The National Academies Press.2. Loki MF, Diane WHEELER, Jessie CARTER, et al. Evaluation, treatment, and prevention of vitamin D deficiency: an Endocrine Society clinical practice guideline. JCEM. 2010; 96(7):1911-30. 36-Xkp-25351:10 LIPID PANEL (03915) Comments: PATIENT WAS FASTINGPERFORMED BY: Bloc70 [facility] [id number] LDL/HDL Ratio 1.8 {ratio} (Normal) Range: 0.0-3.6 Comments: LDL/HDL Ratio Men Women 1/2 Avg.Risk 1.0 1.5 Av g.Risk 3.6 3.2 2X Avg.Risk 6.2 5.0 3X Avg.Risk 8.0 6.1 LDL Cholesterol Calc 64 mg/dL (Normal) Range: 0-99 VLDL Cholesterol Jose De Jesus 57 mg/dL (Abnormal) Range: 5-40 HDL Cholesterol 35 mg/dL (Abnormal) Triglycerides 284 mg/dL (Abnormal) Range: 0-149 Cholesterol, Total 156 mg/dL (Normal) Range: 100-199 85-Smt-58297:10 TSH (99911) Comments: PATIENT WAS FASTINGPERFORMED BY: Desktone6370 [facility] [id number] TSH 3.530 {uIU/mL} (Normal) Range: 0.450-4.500 87-Njr-99943:10 URINALYSIS, W/ MICRO (45924) Comments: PATIENT WAS FASTINGPERFORMED BY: Bloc70 [facility] [id number] Microscopic Examination See below: (Normal) Comments: Microscopic was indicated and was performed. Microscopic Examination MICRON (Normal) Comments: Microscopic follows if indicated. Nitrite, Urine Negative (Normal) Urobilinogen,Semi-Qn 0.2 mg/dL (Normal) Range: 0.2-1.0 Bilirubin Negative (Normal) Occult Blood Negative (Normal) Ketones Negative (Normal) Glucose Negative (Normal) Protein Negative (Normal) WBC Esterase Negative (Normal) Appearance Clear (Normal) Urine-Color Yellow (Normal) pH 5.5 (Normal) Range: 5.0-7.5 Specific Norman 1.013 (Normal) Range: 1.005-1.030 83-Iai-83061:10 MICROALBUMIN: CREATININE RATIO Comments: PATIENT WAS FASTINGPERFORMED BY: [employer] Immost8809 [facility] [id number] (10202) AND (93002) Alb/Creat Ratio 28.7 {mg/g_creat} (Normal) Range: 0.0-30.0 Albumin, Urine 20.3 ug/mL (Normal) Creatinine, Urine 70.7 mg/dL (Normal) :10 METABOLIC PANEL, COMPREHENSIVE Comments: PATIENT WAS FASTINGPERFORMED BY: Desktone6370 [facility] HospitalKur[facility] TechnologyD[facility] [id number] (32206) ALT (SGPT) 42 [iU]/L (Normal) Range: 0-44 AST (SGOT) 38 [iU]/L (Normal) Range: 0-40 Alkaline Phosphatase 68 [iU]/L (Normal) Range: 39-117 Bilirubin, Total 0.6 mg/dL (Normal) Range: 0.0-1.2 A/G Ratio 1.9 (Normal) Range: 1.2-2.2 Globulin, Total 2.5 g/dL (Normal) Range: 1.5-4.5 Albumin 4.7 g/dL (Normal) Range: 3.5-5.5 Protein, Total 7.2 g/dL (Normal) Range: 6.0-8.5 Calcium 10.0 mg/dL (Normal) Range: 8.7-10.2 Carbon Dioxide, Total 21 mmol/L (Normal) Range: 18-29 Chloride 98 mmol/L (Normal) Range: 96-106 Potassium 4.5 mmol/L (Normal) Range: 3.5-5.2 Sodium 138 mmol/L (Normal) Range: 134-144 BUN/Creatinine Ratio 22 (Abnormal) Range: 9-20 eGFR If Africn Am 58 mL/min/1.73 (Abnormal) eGFR If NonAfricn Am 51 mL/min/1.73 (Abnormal) Creatinine 1.51 mg/dL (Abnormal) Range: 0.76-1.27 BUN 33 mg/dL (Abnormal) Range: 6-24 Glucose 98 mg/dL (Normal) Range: 65-99 :10 CBC W/AUTO DIFF WBC (90117) Comments: PATIENT WAS FASTINGPERFORMED BY: [facility] Lsszhz2504 [facility] [id number]; ov 6/6 Immature Grans (Abs) 0.0 {x10E3/uL} (Normal) Range: 0.0-0.1 Immature Granulocytes 0 % (Normal) Baso (Absolute) 0.1 {x10E3/uL} (Normal) Range: 0.0-0.2 Eos (Absolute) 0.2 {x10E3/uL} (Normal) Range: 0.0-0.4 Monocytes(Absolute) 0.7 {x10E3/uL} (Normal) Range: 0.1-0.9 Lymphs (Absolute) 2.4 {x10E3/uL} (Normal) Range: 0.7-3.1 Neutrophils (Absolute) 6.2 {x10E3/uL} (Normal) Range: 1.4-7.0 Basos 1 % (Normal) Eos 2 % (Normal) Monocytes 7 % (Normal) Lymphs 25 % (Normal) Neutrophils 65 % (Normal) Platelets 201 {x10E3/uL} (Normal) Range: 150-379 RDW 13.5 % (Normal) Range: 12.3-15.4 MCHC 33.1 g/dL (Normal) Range: 31.5-35.7 MCH 30.8 pg (Normal) Range: 26.6-33.0 MCV 93 fL (Normal) Range: 79-97 Hematocrit 43.8 % (Normal) Range: 37.5-51.0 Hemoglobin 14.5 g/dL (Normal) Range: 13.0-17.7 RBC 4.71 {x10E6/uL} (Normal) Range: 4.14-5.80 WBC 9.4 {x10E3/uL} (Normal) Range: 3.4-10.8 :00 HgA1C , Office (28054) HgA1C , Office 5.8 % (Normal) Range: 4.6 - 7.1 32-Qgr-38091:00 Blood Glucose , Office (59209) Blood Glucose , Office 125 (Normal) :17 Metabolic Panel, Basic (24820) Comments: do in 1-2 weeks; PATIENT NOT FASTINGPERFORMED BY: [employer] Kssdxz9911 [facility] [id number] Calcium, Serum 9.9 mg/dL (Normal) Range: 8.7-10.2 Carbon Dioxide, Total 19 mmol/L (Normal) Range: 18-29 Chloride, Serum 102 mmol/L (Normal) Range: 96-106 Potassium, Serum 4.7 mmol/L (Normal) Range: 3.5-5.2 Sodium, Serum 142 mmol/L (Normal) Range: 134-144 BUN/Creatinine Ratio 18 (Normal) Range: 9-20 eGFR If Africn Am 66 mL/min/1.73 (Normal) eGFR If NonAfricn Am 57 mL/min/1.73 (Abnormal) Creatinine, Serum 1.37 mg/dL (Abnormal) Range: 0.76-1.27 BUN 24 mg/dL (Normal) Range: 6-24 Glucose, Serum 115 mg/dL (Abnormal) Range: 65-99 :36 HEPATIC FUNCTION PANEL Comments: 3mon do; PATIENT WAS FASTINGPERFORMED BY: Bloc70 [facility] [id number] (38099) ALT (SGPT) 29 [iU]/L (Normal) Range: 0-44 AST (SGOT) 23 [iU]/L (Normal) Range: 0-40 Alkaline Phosphatase, S 57 [iU]/L (Normal) Range: 39-117 Bilirubin, Direct 0.15 mg/dL (Normal) Range: 0.00-0.40 Bilirubin, Total 0.6 mg/dL (Normal) Range: 0.0-1.2 Albumin, Serum 4.6 g/dL (Normal) Range: 3.5-5.5 Protein, Total, Serum 6.9 g/dL (Normal) Range: 6.0-8.5 :36 LIPID PANEL (72038) Comments: do in 3mon; PATIENT WAS FASTINGPERFORMED BY: [employer] [facility] [id number] LDL/HDL Ratio 1.8 {ratio_units} (Normal) Range: 0.0-3.6 Comments: LDL/HDL Ratio Men Women 1/2 Avg.Risk 1.0 1.5 Av g.Risk 3.6 3.2 2X Avg.Risk 6.2 5.0 3X Avg.Risk 8.0 6.1 LDL Cholesterol Calc 58 mg/dL (Normal) Range: 0-99 VLDL Cholesterol Jose De Jesus 46 mg/dL (Abnormal) Range: 5-40 HDL Cholesterol 33 mg/dL (Abnormal) Triglycerides 230 mg/dL (Abnormal) Range: 0-149 Cholesterol, Total 137 mg/dL (Normal) Range: 100-199 :01 HgA1C , Office (06659) HgA1C , Office 5.9 % (Normal) Range: 4.6 - 7.1 :01 Blood Glucose , Office (83963) Blood Glucose , Office 130 (Normal) :18 TSH (14743) Comments: PATIENT WAS FASTINGPERFORMED BY: [facility] Mwsile1847 [facility] [id number] TSH 1.920 {uIU/mL} (Normal) Range: 0.450-4.500 :18 METABOLIC PANEL, COMPREHENSIVE Comments: PATIENT WAS FASTINGPERFORMED BY: [facility] Jpxdna8719 [facility] [id number] (57316) ALT (SGPT) 27 [iU]/L (Normal) Range: 0-44 AST (SGOT) 23 [iU]/L (Normal) Range: 0-40 Alkaline Phosphatase, S 66 [iU]/L (Normal) Range: 39-117 Bilirubin, Total 0.5 mg/dL (Normal) Range: 0.0-1.2 A/G Ratio 2.0 (Normal) Range: 1.2-2.2 Globulin, Total 2.3 g/dL (Normal) Range: 1.5-4.5 Albumin, Serum 4.5 g/dL (Normal) Range: 3.5-5.5 Protein, Total, Serum 6.8 g/dL (Normal) Range: 6.0-8.5 Calcium, Serum 9.8 mg/dL (Normal) Range: 8.7-10.2 Carbon Dioxide, Total 21 mmol/L (Normal) Range: 18-29 Chloride, Serum 102 mmol/L (Normal) Range: 96-106 Potassium, Serum 4.6 mmol/L (Normal) Range: 3.5-5.2 Sodium, Serum 141 mmol/L (Normal) Range: 134-144 BUN/Creatinine Ratio 22 (Abnormal) Range: 9-20 eGFR If Africn Am 58 mL/min/1.73 (Abnormal) eGFR If NonAfricn Am 50 mL/min/1.73 (Abnormal) Creatinine, Serum 1.53 mg/dL (Abnormal) Range: 0.76-1.27 BUN 34 mg/dL (Abnormal) Range: 6-24 Glucose, Serum 114 mg/dL (Abnormal) Range: 65-99 :18 LIPID PANEL (30963) Comments: PATIENT WAS FASTINGPERFORMED BY: Bloc70 [facility] [id number] LDL/HDL Ratio 2.0 {ratio_units} (Normal) Range: 0.0-3.6 Comments: LDL/HDL Ratio Men Women 1/2 Avg.Risk 1.0 1.5 Av g.Risk 3.6 3.2 2X Avg.Risk 6.2 5.0 3X Avg.Risk 8.0 6.1 LDL Cholesterol Calc 65 mg/dL (Normal) Range: 0-99 VLDL Cholesterol Jose De Jesus 39 mg/dL (Normal) Range: 5-40 HDL Cholesterol 33 mg/dL (Abnormal) Triglycerides 194 mg/dL (Abnormal) Range: 0-149 Cholesterol, Total 137 mg/dL (Normal) Range: 100-199 :18 CBC W/AUTO DIFF WBC (92670) Comments: PATIENT WAS FASTINGPERFORMED BY: [employer]ktone6370 [facility] [id number] Immature Grans (Abs) 0.0 {x10E3/uL} (Normal) Range: 0.0-0.1 Immature Granulocytes 0 % (Normal) Baso (Absolute) 0.0 {x10E3/uL} (Normal) Range: 0.0-0.2 Eos (Absolute) 0.2 {x10E3/uL} (Normal) Range: 0.0-0.4 Monocytes(Absolute) 0.7 {x10E3/uL} (Normal) Range: 0.1-0.9 Lymphs (Absolute) 2.3 {x10E3/uL} (Normal) Range: 0.7-3.1 Neutrophils (Absolute) 5.6 {x10E3/uL} (Normal) Range: 1.4-7.0 Basos 1 % (Normal) Eos 2 % (Normal) Monocytes 8 % (Normal) Lymphs 26 % (Normal) Neutrophils 63 % (Normal) Platelets 210 {x10E3/uL} (Normal) Range: 150-379 RDW 13.2 % (Normal) Range: 12.3-15.4 MCHC 33.9 g/dL (Normal) Range: 31.5-35.7 MCH 31.1 pg (Normal) Range: 26.6-33.0 MCV 92 fL (Normal) Range: 79-97 Hematocrit 40.7 % (Normal) Range: 37.5-51.0 Hemoglobin 13.8 g/dL (Normal) Range: 12.6-17.7 RBC 4.44 {x10E6/uL} (Normal) Range: 4.14-5.80 WBC 8.8 {x10E3/uL} (Normal) Range: 3.4-10.8 :49 HgA1C , Office (48216) HgA1C , Office 5.9 % (Normal) Range: 4.6 - 7.1 :49 Blood Glucose , Office (01410) Blood Glucose , Office 133 (Normal) HDL Cholesterol 34 mg/dL (Abnormal) Comments: PATIENT WAS FASTINGPERFORMED BY: [facility]6370 [facility] [id number] 0:18 Vitamin D, 25-Hydroxy 46.2 ng/mL (Normal) Comments: PATIENT WAS FASTINGPERFORMED BY: [facility]rapeutics[facility]6370 [facility] [id number] 0:18 Range: 30.0-100.0 Comments: Vitamin D deficiency has been defined by the [place] ofMedicine and an Endocrine Society practice guideline as alevel of serum 25-OH vitamin D less than 20 ng/mL (1,2).The Endocrine Society went on to further define vitamin Dinsufficiency as a level between 21 and 29 ng/mL (2).1. IOM ([place] of Medicine). 2010. Dietary reference intakes for calcium and D. [place]: The National [employer] Press.2. Loki MF, Diane WHEELER, Jessie CARTER, et al. Evaluation, treatment, and prevention of vitamin D deficiency: an Endocrine Society clinical practice guideline. JCEM. 2010; 96(7):1911-30. :14 HgA1C , Office (80726) HgA1C , Office 6.1 % (Normal) Range: 4.6 - 7.1 :14 Blood Glucose , Office (58983) Blood Glucose , Office 111 (Normal) 73-Tlw-352221:23 Microscopic Examination Comments: PATIENT WAS FASTINGPERFORMED BY: [facility] Zttznx1375 [facility] [id number] Bacteria Few (Normal) Mucus Threads Present (Normal) Cast Type Hyaline casts (Normal) Casts Present {/lpf} (Abnormal) Epithelial Cells (non renal) None seen {/hpf} (Normal) Range: 0 - 10 RBC 0-2 {/hpf} (Normal) Range: 0 - 2 WBC 0-5 {/hpf} (Normal) Range: 0 - 5 :49 Fecal Occult Blood , Office (60029) Fecal Occult Blood , Office (Inhouse) negative (Normal) :23 CALCIFIDIOL (67445) VIT D 25 Comments: PATIENT WAS FASTINGPERFORMED BY: [facility] Ywfbyb2370 [facility] [id number] Vitamin D, 25-Hydroxy 10.5 ng/mL (Abnormal) Range: 30.0-100.0 Comments: Vitamin D deficiency has been defined by the [place] of[place]icine and an Endocrine Society practice guideline as alevel of serum 25-OH vitamin D less than 20 ng/mL (1,2).The Endocrine Society went on to further define vitamin Dinsufficiency as a level between 21 and 29 ng/mL (2).1. IOM ([place] of Medicine). 2010. Dietary reference intakes for calcium and D. [place]: The National [employer] Press.2. Loki MF, Diane NC, Jessie CARTER, et al. Evaluation, treatment, and prevention of vitamin D deficiency: an Endocrine Society clinical practice guideline. JCEM. 2010; 96(7):1911-30. :23 TSH (96290) Comments: PATIENT WAS FASTINGPERFORMED BY: [employer] [employer] [id number] TSH 2.340 {uIU/mL} (Normal) Range: 0.450-4.500 68-Wfj-490995:23 URINALYSIS, W/ MICRO (79640) Comments: PATIENT WAS FASTINGPERFORMED BY: [employer] [facility] NetworkD[facility] [id number] Microscopic Examination See below: (Normal) Comments: Microscopic was indicated and was performed. Microscopic Examination MICRON (Normal) Comments: Microscopic follows if indicated. Nitrite, Urine Negative (Normal) Urobilinogen,Semi-Qn 0.2 mg/dL (Normal) Range: 0.2-1.0 Bilirubin Negative (Normal) Occult Blood Negative (Normal) Ketones Negative (Normal) Glucose Negative (Normal) Protein Trace (Normal) WBC Esterase Negative (Normal) Appearance Clear (Normal) Urine-Color Yellow (Normal) pH 5.5 (Normal) Range: 5.0-7.5 Specific Norman 1.025 (Normal) Range: 1.005-1.030 :23 MICROALBUMIN: CREATININE RATIO Comments: PATIENT WAS FASTINGPERFORMED BY: [employer] [facility] NetworkD[facility] [id number] (24871) AND (49707) Microalb/Creat Ratio 26.8 {mg/g_creat} (Normal) Range: 0.0-30.0 Microalbumin, Urine 56.0 ug/mL (Normal) Creatinine, Urine 209.1 mg/dL (Normal) :23 METABOLIC PANEL, COMPREHENSIVE Comments: PATIENT WAS FASTINGPERFORMED BY: Bloc70 [facility] TechnologiesD[facility] [id number] (29983) ALT (SGPT) 25 [iU]/L (Normal) Range: 0-44 AST (SGOT) 21 [iU]/L (Normal) Range: 0-40 Alkaline Phosphatase, S 64 [iU]/L (Normal) Range: 39-117 Bilirubin, Total 0.4 mg/dL (Normal) Range: 0.0-1.2 A/G Ratio 1.9 (Normal) Range: 1.2-2.2 Comments: Please note reference interval change Globulin, Total 2.3 g/dL (Normal) Range: 1.5-4.5 Albumin, Serum 4.4 g/dL (Normal) Range: 3.5-5.5 Protein, Total, Serum 6.7 g/dL (Normal) Range: 6.0-8.5 Calcium, Serum 9.4 mg/dL (Normal) Range: 8.7-10.2 Carbon Dioxide, Total 22 mmol/L (Normal) Range: 18-29 Chloride, Serum 103 mmol/L (Normal) Range: 96-106 Potassium, Serum 4.5 mmol/L (Normal) Range: 3.5-5.2 Sodium, Serum 141 mmol/L (Normal) Range: 134-144 BUN/Creatinine Ratio 18 (Normal) Range: 9-20 eGFR If Africn Am 67 mL/min/1.73 (Normal) eGFR If NonAfricn Am 58 mL/min/1.73 (Abnormal) Creatinine, Serum 1.35 mg/dL (Abnormal) Range: 0.76-1.27 BUN 24 mg/dL (Normal) Range: 6-24 Glucose, Serum 119 mg/dL (Abnormal) Range: 65-99 36-Hra-993539:23 LIPID PANEL (25342) Comments: PATIENT WAS FASTINGPERFORMED BY: [facility]CoMor[facility] CenterRflgsp4537 [facility] [id number] LDL/HDL Ratio 2.0 {ratio_units} (Normal) Range: 0.0-3.6 Comments: LDL/HDL Ratio Men Women 1/2 Avg.Risk 1.0 1.5 Av g.Risk 3.6 3.2 2X Avg.Risk 6.2 5.0 3X Avg.Risk 8.0 6.1 LDL Cholesterol Calc 69 mg/dL (Normal) Range: 0-99 VLDL Cholesterol Jose De Jesus 26 mg/dL (Normal) Range: 5-40 HDL Cholesterol 34 mg/dL (Abnormal) Triglycerides 129 mg/dL (Normal) Range: 0-149 Cholesterol, Total 129 mg/dL (Normal) Range: 100-199 :23 CBC with auto diff (41530) Comments: PATIENT WAS FASTINGPERFORMED BY: [employer] Ujqhqo7814 [facility] [id number] Immature Grans (Abs) 0.0 {x10E3/uL} (Normal) Range: 0.0-0.1 Immature Granulocytes 0 % (Normal) Baso (Absolute) 0.0 {x10E3/uL} (Normal) Range: 0.0-0.2 Eos (Absolute) 0.1 {x10E3/uL} (Normal) Range: 0.0-0.4 Monocytes(Absolute) 0.6 {x10E3/uL} (Normal) Range: 0.1-0.9 Lymphs (Absolute) 2.0 {x10E3/uL} (Normal) Range: 0.7-3.1 Neutrophils (Absolute) 5.8 {x10E3/uL} (Normal) Range: 1.4-7.0 Basos 1 % (Normal) Eos 1 % (Normal) Monocytes 7 % (Normal) Lymphs 23 % (Normal) Neutrophils 68 % (Normal) Platelets 208 {x10E3/uL} (Normal) Range: 150-379 RDW 12.9 % (Normal) Range: 12.3-15.4 MCHC 32.9 g/dL (Normal) Range: 31.5-35.7 MCH 30.7 pg (Normal) Range: 26.6-33.0 MCV 93 fL (Normal) Range: 79-97 Hematocrit 42.0 % (Normal) Range: 37.5-51.0 Hemoglobin 13.8 g/dL (Normal) Range: 12.6-17.7 RBC 4.50 {x10E6/uL} (Normal) Range: 4.14-5.80 WBC 8.5 {x10E3/uL} (Normal) Range: 3.4-10.8 98-Ftt-480232:23 PSA (PROSTATE SPECIFIC Comments: PATIENT WAS FASTINGPERFORMED BY: LabCoCarrie Tingley HospitalQaaqmt6156 [facility] [id number] ANTIGEN) (V76.44) Prostate Specific Ag, 1.3 ng/mL (Normal) Range: 0.0-4.0 Serum Comments: [place] ECLIA methodology. .According to the [place] [employer], Serum PSA shoulddecrease and remain at undetectable levels after radicalprostatectomy. The AUA defines biochemical recurrence as an initialPSA value 0.2 ng/mL or greater followed by a subsequent confirmatoryPSA value 0.2 ng/mL or greater.Values obtained with d ifferent assay methods or kits cannot be usedinterchangeably. Results cannot be interpreted as absolute evidenceof the presence or absence of malignant disease. :54 HgA1C , Office (79385) HgA1C , Office 6.2 % (Normal) Range: 4.6 - 7.1 :54 Blood Glucose , Office (98737) Blood Glucose , Office 111 (Normal) 40-Uge-136801:11 MICROALBUMIN: CREATININE RATIO Comments: PATIENT WAS FASTINGPERFORMED BY: [employer]ktone6370 [facility] TechnologiesD[facility] [id number] (63008) AND (77810) Microalb/Creat Ratio 17.8 {mg/g_creat} (Normal) Range: 0.0-30.0 Microalbumin, Urine 12.0 ug/mL (Normal) Creatinine, Urine 67.6 mg/dL (Normal) 63-Hkn-817918:11 METABOLIC PANEL, COMPREHENSIVE Comments: PATIENT WAS FASTINGPERFORMED BY: [employer]one6370 [facility] [id number] (13679) ALT (SGPT) 25 [iU]/L (Normal) Range: 0-44 AST (SGOT) 21 [iU]/L (Normal) Range: 0-40 Alkaline Phosphatase, S 70 [iU]/L (Normal) Range: 39-117 Bilirubin, Total 0.5 mg/dL (Normal) Range: 0.0-1.2 A/G Ratio 2.3 (Normal) Range: 1.1-2.5 Globulin, Total 2.1 g/dL (Normal) Range: 1.5-4.5 Albumin, Serum 4.8 g/dL (Normal) Range: 3.5-5.5 Protein, Total, Serum 6.9 g/dL (Normal) Range: 6.0-8.5 Calcium, Serum 9.7 mg/dL (Normal) Range: 8.7-10.2 Carbon Dioxide, Total 20 mmol/L (Normal) Range: 18-29 Chloride, Serum 101 mmol/L (Normal) Range: 97-106 Potassium, Serum 4.6 mmol/L (Normal) Range: 3.5-5.2 Sodium, Serum 140 mmol/L (Normal) Range: 136-144 BUN/Creatinine Ratio 20 (Normal) Range: 9-20 eGFR If Africn Am 68 mL/min/1.73 (Normal) eGFR If NonAfricn Am 59 mL/min/1.73 (Abnormal) Creatinine, Serum 1.34 mg/dL (Abnormal) Range: 0.76-1.27 BUN 27 mg/dL (Abnormal) Range: 6-24 Glucose, Serum 103 mg/dL (Abnormal) Range: 65-99 [id number] LIPID PANEL ([id number]) Comments: PATIENT WAS FASTINGPERFORMED BY: [facility] [id number] LDL/HDL Ratio 2.6 {ratio_units} (Normal) Range: 0.0-3.6 Comments: LDL/HDL Ratio Men Women 1/2 Avg.Risk 1.0 1.5 Av g.Risk 3.6 3.2 2X Avg.Risk 6.2 5.0 3X Avg.Risk 8.0 6.1 LDL Cholesterol Calc 88 mg/dL (Normal) Range: 0-99 VLDL Cholesterol Jose De Jesus 44 mg/dL (Abnormal) Range: 5-40 HDL Cholesterol 34 mg/dL (Abnormal) Comments: According to ATP-III Guidelines, HDL-C >59 mg/dL is considered anegative risk factor for CHD. Triglycerides 221 mg/dL (Abnormal) Range: 0-149 Cholesterol, Total 166 mg/dL (Normal) Range: 100-199 [id number] CBC with auto diff ([id number]) Comments: PATIENT WAS FASTINGPERFORMED BY: [facility] [id number]; fu 05-12-[address] [place] Immature Grans (Abs) 0.0 {x10E3/uL} (Normal) Range: 0.0-0.1 Immature Granulocytes 0 % (Normal) Baso (Absolute) 0.1 {x10E3/uL} (Normal) Range: 0.0-0.2 Eos (Absolute) 0.1 {x10E3/uL} (Normal) Range: 0.0-0.4 Monocytes(Absolute) 0.7 {x10E3/uL} (Normal) Range: 0.1-0.9 Lymphs (Absolute) 2.3 {x10E3/uL} (Normal) Range: 0.7-3.1 Neutrophils (Absolute) 5.4 {x10E3/uL} (Normal) Range: 1.4-7.0 Basos 1 % (Normal) Eos 1 % (Normal) Monocytes 8 % (Normal) Lymphs 27 % (Normal) Neutrophils 63 % (Normal) Platelets 202 {x10E3/uL} (Normal) Range: 150-379 RDW 13.6 % (Normal) Range: 12.3-15.4 MCHC 34.4 g/dL (Normal) Range: 31.5-35.7 MCH 31.9 pg (Normal) Range: 26.6-33.0 MCV 93 fL (Normal) Range: 79-97 Hematocrit 41.9 % (Normal) Range: 37.5-51.0 Hemoglobin 14.4 g/dL (Normal) Range: 12.6-17.7 RBC 4.52 {x10E6/uL} (Normal) Range: 4.14-5.80 WBC 8.5 {x10E3/uL} (Normal) Range: 3.4-10.8 :09 HgA1C , Office (62031) HgA1C , Office 6.2 % (Normal) Range: 4.6 - 7.1 :03 Metabolic Panel, Basic Comments: 4-6 weeks; PATIENT NOT FASTINGPERFORMED BY: LabCoMor[facility]own [facility] CenterOpoxxp8326 [facility] [id number] Information: [id number]; apt. [birth year] (45794) Calcium, Serum 9.7 mg/dL (Normal) Range: 8.7-10.2 Carbon Dioxide, Total 21 mmol/L (Normal) Range: 18-29 Chloride, Serum 103 mmol/L (Normal) Range: 97-108 Potassium, Serum 4.7 mmol/L (Normal) Range: 3.5-5.2 Sodium, Serum 141 mmol/L (Normal) Range: 134-144 BUN/Creatinine Ratio 25 (Abnormal) Range: 9-20 eGFR If Africn Am 74 mL/min/1.73 (Normal) eGFR If NonAfricn Am 64 mL/min/1.73 (Normal) Creatinine, Serum 1.26 mg/dL (Normal) Range: 0.76-1.27 BUN 32 mg/dL (Abnormal) Range: 6-24 Glucose, Serum 120 mg/dL (Abnormal) Range: 65-99 :10 HgA1C , Office (83140) HgA1C , Office 6.2 % (Normal) Range: 4.6 - 7.1 :13 MICROALBUMIN: CREATININE RATIO Comments: PATIENT WAS FASTINGPERFORMED BY: Shubham Housing Development Finance CompanyMorristown Medical CenterHoktdd5000 [facility] [id number] (42138) AND (29017) Microalb/Creat Ratio 63.8 {mg/g_creat} (Abnormal) Range: 0.0-30.0 Microalbumin, Urine 62.1 ug/mL (Abnormal) Range: 0.0-17.0 Creatinine, Urine 97.3 mg/dL (Normal) Range: 22.0-328.0 :13 METABOLIC PANEL, COMPREHENSIVE Comments: PATIENT WAS FASTINGPERFORMED BY: Sh[facility] Finance CompanyMorristown Medical CenterVttxvi4905 [facility] [id number] (56379) ALT (SGPT) 32 [iU]/L (Normal) Range: 0-44 AST (SGOT) 27 [iU]/L (Normal) Range: 0-40 Alkaline Phosphatase, S 73 [iU]/L (Normal) Range: 39-117 Bilirubin, Total 0.6 mg/dL (Normal) Range: 0.0-1.2 A/G Ratio 2.0 (Normal) Range: 1.1-2.5 Globulin, Total 2.3 g/dL (Normal) Range: 1.5-4.5 Albumin, Serum 4.6 g/dL (Normal) Range: 3.5-5.5 Protein, Total, Serum 6.9 g/dL (Normal) Range: 6.0-8.5 Calcium, Serum 9.5 mg/dL (Normal) Range: 8.7-10.2 Carbon Dioxide, Total 22 mmol/L (Normal) Range: 18-29 Chloride, Serum 103 mmol/L (Normal) Range: 97-108 Potassium, Serum 4.6 mmol/L (Normal) Range: 3.5-5.2 Sodium, Serum 139 mmol/L (Normal) Range: 134-144 BUN/Creatinine Ratio 17 (Normal) Range: 9-20 eGFR If Africn Am 83 mL/min/1.73 (Normal) eGFR If NonAfricn Am 72 mL/min/1.73 (Normal) Creatinine, Serum 1.15 mg/dL (Normal) Range: 0.76-1.27 BUN 20 mg/dL (Normal) Range: 6-24 Glucose, Serum 118 mg/dL (Abnormal) Range: 65-99 :13 LIPID PANEL (32152) Comments: PATIENT WAS FASTINGPERFORMED BY: [facility] [id number] LDL/HDL Ratio 2.6 {ratio_units} (Normal) Range: 0.0-3.6 Comments: LDL/HDL Ratio Men Women 1/2 Avg.Risk 1.0 1.5 Av g.Risk 3.6 3.2 2X Avg.Risk 6.2 5.0 3X Avg.Risk 8.0 6.1 LDL Cholesterol Calc 80 mg/dL (Normal) Range: 0-99 VLDL Cholesterol Jose De Jesus 35 mg/dL (Normal) Range: 5-40 HDL Cholesterol 31 mg/dL (Abnormal) Comments: According to ATP-III Guidelines, HDL-C >59 mg/dL is considered anegative risk factor for CHD. Triglycerides 173 mg/dL (Abnormal) Range: 0-149 Cholesterol, Total 146 mg/dL (Normal) Range: 100-199 :13 CBC with auto diff Comments: PATIENT WAS FASTINGPERFORMED BY: [employer] [facility] [id number] Information: [id number] (86073) Immature Grans (Abs) 0.0 {x10E3/uL} (Normal) Range: 0.0-0.1 Immature Granulocytes 0 % (Normal) Baso (Absolute) 0.1 {x10E3/uL} (Normal) Range: 0.0-0.2 Eos (Absolute) 0.1 {x10E3/uL} (Normal) Range: 0.0-0.4 Monocytes(Absolute) 0.5 {x10E3/uL} (Normal) Range: 0.1-0.9 Lymphs (Absolute) 2.2 {x10E3/uL} (Normal) Range: 0.7-3.1 Neutrophils (Absolute) 5.4 {x10E3/uL} (Normal) Range: 1.4-7.0 Basos 1 % (Normal) Eos 1 % (Normal) Monocytes 6 % (Normal) Lymphs 27 % (Normal) Neutrophils 65 % (Normal) Platelets 213 {x10E3/uL} (Normal) Range: 150-379 RDW 13.3 % (Normal) Range: 12.3-15.4 MCHC 34.1 g/dL (Normal) Range: 31.5-35.7 MCH 31.6 pg (Normal) Range: 26.6-33.0 MCV 93 fL (Normal) Range: 79-97 Hematocrit 41.3 % (Normal) Range: 37.5-51.0 Hemoglobin 14.1 g/dL (Normal) Range: 12.6-17.7 RBC 4.46 {x10E6/uL} (Normal) Range: 4.14-5.80 WBC 8.3 {x10E3/uL} (Normal) Range: 3.4-10.8 :13 PSA (PROSTATE SPECIFIC Comments: PATIENT WAS FASTINGPERFORMED BY: [facility] Przesl8627 [facility] [id number]; apt. 05-[birth year] ANTIGEN) (V76.44) Prostate Specific Ag, 0.7 ng/mL (Normal) Range: 0.0-4.0 Serum Comments: [employer] ECLIA methodology. .According to the [place] [employer], Serum PSA shoulddecrease and remain at undetectable levels after radicalprostatectomy. The AUA defines biochemical recurrence as an initialPSA value 0.2 ng/mL or greater followed by a subsequent confirmatoryPSA value 0.2 ng/mL or greater.Values obtained with d ifferent assay methods or kits cannot be usedinterchangeably. Results cannot be interpreted as absolute evidenceof the presence or absence of malignant disease. :00 HgA1C , Office (88638) HgA1C , Office 6.3 % (Normal) Range: 4.6 - 7.1 :00 Blood Glucose , Office (51332) Blood Glucose , Office 143 (Normal) :16 CBC With Differential/Platelet Comments: PATIENT WAS FASTINGPERFORMED BY: [facility]St[facility] Lfowrw2681 [facility] [id number] Information: [id number] Immature Grans (Abs) 0.0 {x10E3/uL} (Normal) Range: 0.0-0.1 Immature Granulocytes 0 % (Normal) Baso (Absolute) 0.1 {x10E3/uL} (Normal) Range: 0.0-0.2 Eos (Absolute) 0.1 {x10E3/uL} (Normal) Range: 0.0-0.4 Monocytes(Absolute) 0.7 {x10E3/uL} (Normal) Range: 0.1-0.9 Lymphs (Absolute) 2.2 {x10E3/uL} (Normal) Range: 0.7-3.1 Neutrophils (Absolute) 6.5 {x10E3/uL} (Normal) Range: 1.4-7.0 Basos 1 % (Normal) Eos 1 % (Normal) Monocytes 7 % (Normal) Lymphs 23 % (Normal) Neutrophils 68 % (Normal) Platelets 233 {x10E3/uL} (Normal) Range: 150-379 RDW 12.9 % (Normal) Range: 12.3-15.4 MCHC 33.6 g/dL (Normal) Range: 31.5-35.7 MCH 30.5 pg (Normal) Range: 26.6-33.0 MCV 91 fL (Normal) Range: 79-97 Hematocrit 42.8 % (Normal) Range: 37.5-51.0 Hemoglobin 14.4 g/dL (Normal) Range: 12.6-17.7 RBC 4.72 {x10E6/uL} (Normal) Range: 4.14-5.80 WBC 9.5 {x10E3/uL} (Normal) Range: 3.4-10.8 :16 Comp. Metabolic Panel (14) Comments: PATIENT WAS FASTINGPERFORMED BY: [employer] Vcuibd5423 [facility] [id number] ALT (SGPT) 29 [iU]/L (Normal) Range: 0-44 AST (SGOT) 21 [iU]/L (Normal) Range: 0-40 Alkaline Phosphatase, S 90 [iU]/L (Normal) Range: 39-117 Bilirubin, Total 0.6 mg/dL (Normal) Range: 0.0-1.2 A/G Ratio 1.9 (Normal) Range: 1.1-2.5 Globulin, Total 2.4 g/dL (Normal) Range: 1.5-4.5 Albumin, Serum 4.5 g/dL (Normal) Range: 3.5-5.5 Protein, Total, Serum 6.9 g/dL (Normal) Range: 6.0-8.5 Calcium, Serum 9.6 mg/dL (Normal) Range: 8.7-10.2 Carbon Dioxide, Total 23 mmol/L (Normal) Range: 18-29 Chloride, Serum 102 mmol/L (Normal) Range: 97-108 Potassium, Serum 4.5 mmol/L (Normal) Range: 3.5-5.2 Sodium, Serum 140 mmol/L (Normal) Range: 134-144 BUN/Creatinine Ratio 14 (Normal) Range: 9-20 eGFR If Africn Am 85 mL/min/1.73 (Normal) eGFR If NonAfricn Am 73 mL/min/1.73 (Normal) Creatinine, Serum 1.13 mg/dL (Normal) Range: 0.76-1.27 BUN 16 mg/dL (Normal) Range: 6-24 Glucose, Serum 110 mg/dL (Abnormal) Range: 65-99 :16 Lipid Panel With LDL/HDL Comments: PATIENT WAS FASTINGPERFORMED BY: [employer] Rfemfc8467 [facility] [id number] Ratio LDL/HDL Ratio 2.7 {ratio_units} (Normal) Range: 0.0-3.6 Comments: LDL/HDL Ratio Men Women 1/2 Avg.Risk 1.0 1.5 Av g.Risk 3.6 3.2 2X Avg.Risk 6.2 5.0 3X Avg.Risk 8.0 6.1 LDL Cholesterol Calc 93 mg/dL (Normal) Range: 0-99 VLDL Cholesterol Jose De Jesus 23 mg/dL (Normal) Range: 5-40 HDL Cholesterol 34 mg/dL (Abnormal) Comments: According to ATP-III Guidelines, HDL-C >59 mg/dL is considered anegative risk factor for CHD. Triglycerides 113 mg/dL (Normal) Range: 0-149 Cholesterol, Total 150 mg/dL (Normal) Range: 100-199 :16 Microalb/Creat Ratio, Randm Ur Comments: PATIENT WAS FASTINGPERFORMED BY: Brandark [facility] HospitalKurve TechnologyDosher Memorial Hospital [id number] Microalb/Creat Ratio 91.1 {mg/g_creat} (Abnormal) Range: 0.0-30.0 Microalbumin, Urine 67.5 ug/mL (Abnormal) Range: 0.0-17.0 Creatinine, Urine 74.1 mg/dL (Normal) Range: 22.0-328.0 :02 HgA1C , Office (91242) HgA1C , Office 6.1 % (Normal) Range: 4.6 - 7.1 :02 Blood Glucose , Office (62668) Blood Glucose , Office 142 (Normal) :47 PSA (PROSTATE SPECIFIC Comments: PATIENT WAS FASTINGPERFORMED BY: [facility] [id number] ANTIGEN) (V76.44) Prostate Specific Ag, 0.7 ng/mL (Normal) Range: 0.0-4.0 Serum Comments: [employer] ECLIA methodology. .According to the [place] [employer], Serum PSA shoulddecrease and remain at undetectable levels after radicalprostatectomy. The AUA defines biochemical recurrence as an initialPSA value 0.2 ng/mL or greater followed by a subsequent confirmatoryPSA value 0.2 ng/mL or greater.Values obtained with d ifferent assay methods or kits cannot be usedinterchangeably. Results cannot be interpreted as absolute evidenceof the presence or absence of malignant disease. :47 MICROALBUMIN: CREATININE RATIO Comments: PATIENT WAS FASTINGPERFORMED BY: [place] PaletteBradyville [place] [id number] (07454) AND (22363) Microalb/Creat Ratio 85.1 {mg/g_creat} (Abnormal) Range: 0.0-30.0 Microalbumin, Urine 102.0 ug/mL (Abnormal) Range: 0.0-17.0 Creatinine, Urine 119.8 mg/dL (Normal) Range: 22.0-328.0 :47 METABOLIC PANEL, COMPREHENSIVE Comments: PATIENT WAS FASTINGPERFORMED BY: [facility] Xaqpmb1531 [facility] [id number] (33498) ALT (SGPT) 29 [iU]/L (Normal) Range: 0-44 AST (SGOT) 24 [iU]/L (Normal) Range: 0-40 Alkaline Phosphatase, S 83 [iU]/L (Normal) Range: 39-117 Bilirubin, Total 0.6 mg/dL (Normal) Range: 0.0-1.2 A/G Ratio 2.3 (Normal) Range: 1.1-2.5 Globulin, Total 1.9 g/dL (Normal) Range: 1.5-4.5 Albumin, Serum 4.3 g/dL (Normal) Range: 3.5-5.5 Protein, Total, Serum 6.2 g/dL (Normal) Range: 6.0-8.5 Calcium, Serum 9.5 mg/dL (Normal) Range: 8.7-10.2 Carbon Dioxide, Total 20 mmol/L (Normal) Range: 18-29 Chloride, Serum 103 mmol/L (Normal) Range: 97-108 Potassium, Serum 4.7 mmol/L (Normal) Range: 3.5-5.2 Sodium, Serum 141 mmol/L (Normal) Range: 134-144 BUN/Creatinine Ratio 17 (Normal) Range: 9-20 eGFR If Africn Am 86 mL/min/1.73 (Normal) eGFR If NonAfricn Am 75 mL/min/1.73 (Normal) Creatinine, Serum 1.12 mg/dL (Normal) Range: 0.76-1.27 BUN 19 mg/dL (Normal) Range: 6-24 Glucose, Serum 110 mg/dL (Abnormal) Range: 65-99 :47 LIPID PANEL (29426) Comments: PATIENT WAS FASTINGPERFORMED BY: Sh[facility] Housing Development Finance CompanyMorristown Medical CenterXrzvdh5321 [facility] [id number] LDL/HDL Ratio 2.2 {ratio_units} (Normal) Range: 0.0-3.6 Comments: LDL/HDL Ratio Men Women 1/2 Avg.Risk 1.0 1.5 Av g.Risk 3.6 3.2 2X Avg.Risk 6.2 5.0 3X Avg.Risk 8.0 6.1 LDL Cholesterol Calc 68 mg/dL (Normal) Range: 0-99 VLDL Cholesterol Jose De Jesus 34 mg/dL (Normal) Range: 5-40 HDL Cholesterol 31 mg/dL (Abnormal) Comments: According to ATP-III Guidelines, HDL-C >59 mg/dL is considered anegative risk factor for CHD. Triglycerides 170 mg/dL (Abnormal) Range: 0-149 Cholesterol, Total 133 mg/dL (Normal) Range: 100-199 :47 CBC W/AUTO DIFF WBC Comments: PATIENT WAS FASTINGPERFORMED BY: [employer] Development Finance CompanyMorristown Medical CenterGznszw7267 [facility] [id number] Information: [id number] (64351) Immature Grans (Abs) 0.0 {x10E3/uL} (Normal) Range: 0.0-0.1 Immature Granulocytes 0 % (Normal) Baso (Absolute) 0.1 {x10E3/uL} (Normal) Range: 0.0-0.2 Eos (Absolute) 0.1 {x10E3/uL} (Normal) Range: 0.0-0.4 Monocytes(Absolute) 0.6 {x10E3/uL} (Normal) Range: 0.1-0.9 Lymphs (Absolute) 2.5 {x10E3/uL} (Normal) Range: 0.7-3.1 Neutrophils (Absolute) 6.4 {x10E3/uL} (Normal) Range: 1.4-7.0 Basos 1 % (Normal) Eos 1 % (Normal) Monocytes 7 % (Normal) Lymphs 26 % (Normal) Neutrophils 65 % (Normal) Platelets 220 {x10E3/uL} (Normal) Range: 150-379 RDW 13.5 % (Normal) Range: 12.3-15.4 MCHC 33.6 g/dL (Normal) Range: 31.5-35.7 MCH 31.2 pg (Normal) Range: 26.6-33.0 MCV 93 fL (Normal) Range: 79-97 Hematocrit 43.1 % (Normal) Range: 37.5-51.0 Hemoglobin 14.5 g/dL (Normal) Range: 12.6-17.7 RBC 4.65 {x10E6/uL} (Normal) Range: 4.14-5.80 WBC 9.7 {x10E3/uL} (Normal) Range: 3.4-10.8 :08 HgA1C , Office (18984) HgA1C , Office 6.2 % (Normal) Range: 4.6 - 7.1 :08 Blood Glucose , Office (21057) Blood Glucose , Office 138 (Normal) :39 Blood Glucose , Office (51474) Blood Glucose , Office 141 (Normal) :39 HgA1C , Office (57757) HgA1C , Office 6.5 % (Normal) Range: 4.6 - 7.1 :42 METABOLIC PANEL, Comments: PATIENT WAS FASTINGPERFORMED BY: LabCoMorristown Medical CenterWdhtvt2835 [facility] [id number] Information: [id number] COMPREHENSIVE (70891) ALT (SGPT) 46 [iU]/L (Abnormal) Range: 0-44 AST (SGOT) 30 [iU]/L (Normal) Range: 0-40 Alkaline Phosphatase, S 94 [iU]/L (Normal) Range: 39-117 Bilirubin, Total 0.6 mg/dL (Normal) Range: 0.0-1.2 A/G Ratio 1.7 (Normal) Range: 1.1-2.5 Globulin, Total 2.6 g/dL (Normal) Range: 1.5-4.5 Albumin, Serum 4.5 g/dL (Normal) Range: 3.5-5.5 Protein, Total, Serum 7.1 g/dL (Normal) Range: 6.0-8.5 Calcium, Serum 9.4 mg/dL (Normal) Range: 8.7-10.2 Carbon Dioxide, Total 21 mmol/L (Normal) Range: 19-28 Chloride, Serum 101 mmol/L (Normal) Range: 97-108 Potassium, Serum 4.7 mmol/L (Normal) Range: 3.5-5.2 Sodium, Serum 138 mmol/L (Normal) Range: 134-144 BUN/Creatinine Ratio 20 (Normal) Range: 9-20 eGFR If Africn Am 76 mL/min/1.73 (Normal) eGFR If NonAfricn Am 66 mL/min/1.73 (Normal) Creatinine, Serum 1.24 mg/dL (Normal) Range: 0.76-1.27 BUN 25 mg/dL (Abnormal) Range: 6-24 Glucose, Serum 117 mg/dL (Abnormal) Range: 65-99 28-Mvz-603752:42 LIPID PANEL (39875) Comments: PATIENT WAS FASTINGPERFORMED BY: [employer]6370 [facility] [id number] LDL/HDL Ratio 3.4 {ratio_units} (Normal) Range: 0.0-3.6 LDL Cholesterol Calc 108 mg/dL (Abnormal) Range: 0-99 VLDL Cholesterol Jose De Jesus 37 mg/dL (Normal) Range: 5-40 HDL Cholesterol 32 mg/dL (Abnormal) Comments: According to ATP-III Guidelines, HDL-C >59 mg/dL is considered anegative risk factor for CHD. Cholesterol, Total 177 mg/dL (Normal) Range: 100-199 Triglycerides 186 mg/dL (Abnormal) Range: 0-149 52-Jue-302622:42 MICROALBUMIN: CREATININE RATIO Comments: PATIENT WAS FASTINGPERFORMED BY: [employer] Uqidjz6851 [facility] [id number] (58845) AND (39877) Microalb/Creat Ratio 59.4 {mg/g_creat} (Abnormal) Range: 0.0-30.0 Microalbumin, Urine 101.5 ug/mL (Abnormal) Range: 0.0-17.0 Creatinine, Urine 170.9 mg/dL (Normal) Range: 22.0-328.0 :13 Blood Glucose , Office (43846) Blood Glucose , Office 110 (Normal) :13 HgA1C , Office (02092) HgA1C , Office 6.2 % (Normal) Range: 4.6 - 7.1 :21 METABOLIC PANEL, COMPREHENSIVE Comments: PATIENT WAS FASTINGPERFORMED BY: 1[employer]70 [facility] [id number] (75021) ALT (SGPT) 37 [iU]/L (Normal) Range: 0-44 AST (SGOT) 23 [iU]/L (Normal) Range: 0-40 Alkaline Phosphatase, S 95 [iU]/L (Normal) Range: 39-117 Comments: Please note reference interval change Bilirubin, Total 0.8 mg/dL (Normal) Range: 0.0-1.2 A/G Ratio 1.9 (Normal) Range: 1.1-2.5 Globulin, Total 2.3 g/dL (Normal) Range: 1.5-4.5 Albumin, Serum 4.3 g/dL (Normal) Range: 3.5-5.5 Protein, Total, Serum 6.6 g/dL (Normal) Range: 6.0-8.5 Calcium, Serum 9.7 mg/dL (Normal) Range: 8.7-10.2 Carbon Dioxide, Total 20 mmol/L (Normal) Range: 19-28 Chloride, Serum 101 mmol/L (Normal) Range: 97-108 Potassium, Serum 4.5 mmol/L (Normal) Range: 3.5-5.2 Sodium, Serum 139 mmol/L (Normal) Range: 134-144 BUN/Creatinine Ratio 16 (Normal) Range: 9-20 eGFR If Africn Am 78 mL/min/1.73 (Normal) eGFR If NonAfricn Am 68 mL/min/1.73 (Normal) Creatinine, Serum 1.22 mg/dL (Normal) Range: 0.76-1.27 BUN 19 mg/dL (Normal) Range: 6-24 Glucose, Serum 116 mg/dL (Abnormal) Range: 65-99 :21 LIPID PANEL (31566) Comments: PATIENT WAS FASTINGPERFORMED BY: [employer]6370 [facility] [id number] LDL/HDL Ratio 2.6 {ratio_units} (Normal) Range: 0.0-3.6 LDL Cholesterol Calc 81 mg/dL (Normal) Range: 0-99 VLDL Cholesterol Jose De Jesus 33 mg/dL (Normal) Range: 5-40 Cholesterol, Total 145 mg/dL (Normal) Range: 100-199 HDL Cholesterol 31 mg/dL (Abnormal) Comments: According to ATP-III Guidelines, HDL-C >59 mg/dL is considered anegative risk factor for CHD. Triglycerides 167 mg/dL (Abnormal) Range: 0-149 28-Apr-20137:21 CBC WITH MANUAL DIFF Comments: PATIENT WAS FASTINGPERFORMED BY: LabBeaumont Hospital6370 [facility] [id number] Information: [id number] (07993) Immature Grans (Abs) 0.0 {x10E3/uL} (Normal) Range: 0.0-0.1 Immature Granulocytes 0 % (Normal) Range: 0-2 Baso (Absolute) 0.1 {x10E3/uL} (Normal) Range: 0.0-0.2 Eos (Absolute) 0.2 {x10E3/uL} (Normal) Range: 0.0-0.4 Monocytes(Absolute) 0.8 {x10E3/uL} (Normal) Range: 0.1-0.9 Lymphs (Absolute) 2.6 {x10E3/uL} (Normal) Range: 0.7-3.1 Neutrophils (Absolute) 6.0 {x10E3/uL} (Normal) Range: 1.4-7.0 Basos 1 % (Normal) Range: 0-3 Eos 2 % (Normal) Range: 0-5 Monocytes 8 % (Normal) Range: 4-12 Lymphs 27 % (Normal) Range: 14-46 Neutrophils 62 % (Normal) Range: 40-74 Platelets 224 {x10E3/uL} (Normal) Range: 155-379 RDW 13.5 % (Normal) Range: 12.3-15.4 MCHC 33.4 g/dL (Normal) Range: 31.5-35.7 MCH 31.4 pg (Normal) Range: 26.6-33.0 MCV 94 fL (Normal) Range: 79-97 Hematocrit 45.5 % (Normal) Range: 37.5-51.0 Hemoglobin 15.2 g/dL (Normal) Range: 12.6-17.7 RBC 4.84 {x10E6/uL} (Normal) Range: 4.14-5.80 WBC 9.7 {x10E3/uL} (Normal) Range: 3.4-10.8 :21 PSA (PROSTATE SPECIFIC Comments: PATIENT WAS FASTINGPERFORMED BY: PharmAkea TherapeuticsBeaumont Hospital6370 [facility] [id number] ANTIGEN) (V76.44) Prostate Specific Ag, 0.6 ng/mL (Normal) Range: 0.0-4.0 Serum Comments: [employer] ECLIA methodology. .According to the [place] [employer], Serum PSA shoulddecrease and remain at undetectable levels after radicalprostatectomy. The AUA defines biochemical recurrence as an initialPSA value 0.2 ng/mL or greater followed by a subsequent confirmatoryPSA value 0.2 ng/mL or greater.Values obtained with d ifferent assay methods or kits cannot be usedinterchangeably. Results cannot be interpreted as absolute evidenceof the presence or absence of malignant disease. :27 HgA1C , Office (54420) HgA1C , Office 6.0 % (Normal) Range: 4.6 - 7.1 :27 Blood Glucose , Office (72716) Blood Glucose , Office 114 (Normal) Comments: fasting :21 MICROALBUMIN: CREATININE RATIO Comments: PATIENT WAS FASTINGPERFORMED BY: Sh[employer] Housing Development Finance CompanyMorristown Medical CenterXkdlfy9672 [facility] [id number] (73136) AND (20686) Microalb/Creat Ratio 60.1 {mg/g_creat} (Abnormal) Range: 0.0-30.0 Creatinine, Urine 111.1 mg/dL (Normal) Range: 22.0-328.0 Microalbumin, Urine 66.8 ug/mL (Abnormal) Range: 0.0-17.0 :21 METABOLIC PANEL, COMPREHENSIVE Comments: PATIENT WAS FASTINGPERFORMED BY: [facility]6370 [facility] [id number] (38632) ALT (SGPT) 26 [iU]/L (Normal) Range: 0-44 AST (SGOT) 23 [iU]/L (Normal) Range: 0-40 Alkaline Phosphatase, S 75 [iU]/L (Normal) Range: 25-150 Bilirubin, Total 0.7 mg/dL (Normal) Range: 0.0-1.2 A/G Ratio 1.9 (Normal) Range: 1.1-2.5 Globulin, Total 2.3 g/dL (Normal) Range: 1.5-4.5 Albumin, Serum 4.4 g/dL (Normal) Range: 3.5-5.5 Protein, Total, Serum 6.7 g/dL (Normal) Range: 6.0-8.5 Calcium, Serum 9.5 mg/dL (Normal) Range: 8.7-10.2 Carbon Dioxide, Total 22 mmol/L (Normal) Range: 20-32 Comments: Effective December 06, 2012, the reference interval for Carbon Dioxide, Total will be changing to: 0 - 7 days 18 - 28 8 - 30 days 17 - 27 31 d - 5 months 15 - 26 6 m - up to 1 year 15 - 25 1 - 12 years 17 - 26 > 12 years 19 - 28 Chloride, Serum 105 mmol/L (Normal) Range: 97-108 Potassium, Serum 4.7 mmol/L (Normal) Range: 3.5-5.2 Sodium, Serum 140 mmol/L (Normal) Range: 134-144 BUN/Creatinine Ratio 19 (Normal) Range: 9-20 eGFR If Africn Am 91 mL/min/1.73 (Normal) eGFR If NonAfricn Am 78 mL/min/1.73 (Normal) Creatinine, Serum 1.08 mg/dL (Normal) Range: 0.76-1.27 BUN 21 mg/dL (Normal) Range: 6-24 Glucose, Serum 116 mg/dL (Abnormal) Range: 65-99 26-Nov-20127:21 LIPID PANEL (60921) Comments: PATIENT WAS FASTINGPERFORMED BY: [facility] Xsnlne2423 [facility] [id number] LDL/HDL Ratio 4.6 {ratio_units} (Abnormal) Range: 0.0-3.6 LDL Cholesterol Calc 144 mg/dL (Abnormal) Range: 0-99 HDL Cholesterol 31 mg/dL (Abnormal) Comments: According to ATP-III Guidelines, HDL-C >59 mg/dL is considered anegative risk factor for CHD. Triglycerides 158 mg/dL (Abnormal) Range: 0-149 VLDL Cholesterol Jose De Jesus 32 mg/dL (Normal) Range: 5-40 Cholesterol, Total 207 mg/dL (Abnormal) Range: 100-199 :21 CBC WITH MANUAL DIFF Comments: PATIENT WAS FASTINGPERFORMED BY: LabBeaumont Hospital6370 [facility] [id number] Information: [id number] (83905) Immature Grans (Abs) 0.0 {x10E3/uL} (Normal) Range: 0.0-0.1 Immature Granulocytes 0 % (Normal) Range: 0-2 Baso (Absolute) 0.1 {x10E3/uL} (Normal) Range: 0.0-0.2 Eos (Absolute) 0.3 {x10E3/uL} (Normal) Range: 0.0-0.4 Monocytes(Absolute) 0.7 {x10E3/uL} (Normal) Range: 0.1-1.0 Lymphs (Absolute) 2.6 {x10E3/uL} (Normal) Range: 0.7-4.5 Neutrophils (Absolute) 5.7 {x10E3/uL} (Normal) Range: 1.8-7.8 Basos 1 % (Normal) Range: 0-3 Eos 3 % (Normal) Range: 0-7 Monocytes 7 % (Normal) Range: 4-13 Lymphs 28 % (Normal) Range: 14-46 Neutrophils 61 % (Normal) Range: 40-74 Platelets 217 {x10E3/uL} (Normal) Range: 140-415 RDW 13.8 % (Normal) Range: 12.3-15.4 MCHC 34.0 g/dL (Normal) Range: 31.5-35.7 MCH 31.0 pg (Normal) Range: 26.6-33.0 MCV 91 fL (Normal) Range: 79-97 Hematocrit 43.2 % (Normal) Range: 37.5-51.0 Hemoglobin 14.7 g/dL (Normal) Range: 12.6-17.7 RBC 4.74 {x10E6/uL} (Normal) Range: 4.14-5.80 WBC 9.3 {x10E3/uL} (Normal) Range: 4.0-10.5 :38 HgA1C , Office (04616) HgA1C , Office 6.2 % (Normal) Range: 4.6 - 7.1 :38 Blood Glucose , Office (47025) Blood Glucose , Office 117 (Normal) :31 LIPID PANEL (45217) Comments: PATIENT WAS FASTINGPERFORMED BY: [facility] Finance CompanyMorristown Medical CenterKmqfuy7506 [facility] [id number] LDL/HDL Ratio 2.6 {ratio_units} (Normal) Range: 0.0-3.6 LDL Cholesterol Calc 91 mg/dL (Normal) Range: 0-99 VLDL Cholesterol Jose De Jesus 25 mg/dL (Normal) Range: 5-40 HDL Cholesterol 35 mg/dL (Abnormal) Comments: According to ATP-III Guidelines, HDL-C >59 mg/dL is considered anegative risk factor for CHD. Triglycerides 125 mg/dL (Normal) Range: 0-149 Cholesterol, Total 151 mg/dL (Normal) Range: 100-199 :31 HEPATIC FUNCTION PANEL Comments: PATIENT WAS FASTINGPERFORMED BY: [employer] [facility] [employer] Finance CompanyMorristown Medical CenterJujgce2701 [facility] [id number] Information: [id number] (28420) ALT (SGPT) 37 [iU]/L (Normal) Range: 0-44 AST (SGOT) 33 [iU]/L (Normal) Range: 0-40 Alkaline Phosphatase, S 99 [iU]/L (Normal) Range: 25-150 Bilirubin, Direct 0.21 mg/dL (Normal) Range: 0.00-0.40 Bilirubin, Total 0.8 mg/dL (Normal) Range: 0.0-1.2 Albumin, Serum 4.5 g/dL (Normal) Range: 3.5-5.5 Protein, Total, Serum 7.0 g/dL (Normal) Range: 6.0-8.5 :43 HgA1C , Office (34745) HgA1C , Office 6.4 % (Normal) Range: 4.6 - 7.1 :43 Blood Glucose , Office (55033) Blood Glucose , Office 111 (Normal) Comments: fasting [id number] Microscopic Examination Comments: PATIENT WAS FASTINGPERFORMED BY: [employer] Finance CompanyMorristown Medical CenterVnqceg9316 [facility] [id number] Bacteria None seen (Normal) Mucus Threads Present (Normal) Epithelial Cells (non renal) 0-10 {/hpf} (Normal) Range: 0 - 10 RBC 0-3 {/hpf} (Normal) Range: 0 - 3 WBC 0-5 {/hpf} (Normal) Range: 0 - 5 81-Ons-55730:19 URINALYSIS, W/ MICRO (49914) Comments: PATIENT WAS FASTINGPERFORMED BY: PharmAkea TherapeuticsShriners Hospitals For ChildrenWazfjk0316 [facility] [id number] Microscopic Examination See below: (Normal) Nitrite, Urine Negative (Normal) Urobilinogen,Semi-Qn 0.2 mg/dL (Normal) Range: 0.0-1.9 Bilirubin Negative (Normal) Occult Blood Negative (Normal) Ketones Negative (Normal) Glucose Negative (Normal) Protein 1+ (Abnormal) WBC Esterase Negative (Normal) Appearance Clear (Normal) pH 6.0 (Normal) Range: 5.0-7.5 Urine-Color Yellow (Normal) Specific Norman 1.024 (Normal) Range: 1.005-1.030 :19 MICROALBUMIN: CREATININE RATIO Comments: PATIENT WAS FASTINGPERFORMED BY: [facility] [id number] ([id number]) AND (69013) Creatinine, Urine 283.0 mg/dL (Normal) Range: 22.0-328.0 Microalb/Creat Ratio 68.6 {mg/g_creat} (Abnormal) Range: 0.0-30.0 Microalbumin, Urine 194.0 ug/mL (Abnormal) Range: 0.0-17.0 :19 METABOLIC PANEL, COMPREHENSIVE Comments: PATIENT WAS FASTINGPERFORMED BY: [facility] [id number] ([id number]) ALT (SGPT) 43 [iU]/L (Normal) Range: 0-55 Comments: Effective April 19, 2012 the reference interval for ALT (SGPT) will be changing to: Male Female 0 - 11 years 0 - 29 0 - 28 12 - 17 years 0 - 30 0 - 24 > 17 years 0 - 44 0 - 32 AST (SGOT) 30 [iU]/L (Normal) Range: 0-40 Alkaline Phosphatase, S 101 [iU]/L (Normal) Range: 25-150 Bilirubin, Total 0.8 mg/dL (Normal) Range: 0.0-1.2 A/G Ratio 1.6 (Normal) Range: 1.1-2.5 Globulin, Total 2.8 g/dL (Normal) Range: 1.5-4.5 Albumin, Serum 4.4 g/dL (Normal) Range: 3.5-5.5 Protein, Total, Serum 7.2 g/dL (Normal) Range: 6.0-8.5 Calcium, Serum 9.6 mg/dL (Normal) Range: 8.7-10.2 Carbon Dioxide, Total 21 mmol/L (Normal) Range: 20-32 Chloride, Serum 100 mmol/L (Normal) Range: 97-108 Potassium, Serum 4.6 mmol/L (Normal) Range: 3.5-5.2 Sodium, Serum 137 mmol/L (Normal) Range: 134-144 BUN/Creatinine Ratio 18 (Normal) Range: 9-20 eGFR If Africn Am 77 mL/min/1.73 (Normal) Creatinine, Serum 1.25 mg/dL (Normal) Range: 0.76-1.27 eGFR If NonAfricn Am 66 mL/min/1.73 (Normal) BUN 22 mg/dL (Normal) Range: 6-24 Glucose, Serum 113 mg/dL (Abnormal) Range: 65-99 61-Nul-81187:19 LIPID PANEL (87032) Comments: PATIENT WAS FASTINGPERFORMED BY: [facility] CenterXlffuu9975 [facility] [id number] LDL/HDL Ratio 3.8 {ratio_units} (Abnormal) Range: 0.0-3.6 LDL Cholesterol Calc 126 mg/dL (Abnormal) Range: 0-99 VLDL Cholesterol Jose De Jesus 48 mg/dL (Abnormal) Range: 5-40 HDL Cholesterol 33 mg/dL (Abnormal) Comments: According to ATP-III Guidelines, HDL-C >59 mg/dL is considered anegative risk factor for CHD. Triglycerides 241 mg/dL (Abnormal) Range: 0-149 Cholesterol, Total 207 mg/dL (Abnormal) Range: 100-199 :19 CBC WITH MANUAL DIFF Comments: PATIENT WAS FASTINGPERFORMED BY: [facility]Co[facility] CenterQvhqmm9318 [facility] [id number] Information: [id number] (88521) Immature Grans (Abs) 0.0 {x10E3/uL} (Normal) Range: 0.0-0.1 Immature Granulocytes 0 % (Normal) Range: 0-2 Baso (Absolute) 0.0 {x10E3/uL} (Normal) Range: 0.0-0.2 Eos (Absolute) 0.1 {x10E3/uL} (Normal) Range: 0.0-0.4 Lymphs (Absolute) 2.4 {x10E3/uL} (Normal) Range: 0.7-4.5 Monocytes(Absolute) 0.7 {x10E3/uL} (Normal) Range: 0.1-1.0 Neutrophils (Absolute) 6.1 {x10E3/uL} (Normal) Range: 1.8-7.8 Basos 0 % (Normal) Range: 0-3 Eos 1 % (Normal) Range: 0-7 Monocytes 7 % (Normal) Range: 4-13 Lymphs 26 % (Normal) Range: 14-46 Neutrophils 66 % (Normal) Range: 40-74 Platelets 260 {x10E3/uL} (Normal) Range: 140-415 RDW 13.4 % (Normal) Range: 12.3-15.4 MCHC 34.1 g/dL (Normal) Range: 31.5-35.7 MCH 31.7 pg (Normal) Range: 26.6-33.0 MCV 93 fL (Normal) Range: 79-97 Hematocrit 46.9 % (Normal) Range: 37.5-51.0 Hemoglobin 16.0 g/dL (Normal) Range: 12.6-17.7 RBC 5.05 {x10E6/uL} (Normal) Range: 4.14-5.80 WBC 9.4 {x10E3/uL} (Normal) Range: 4.0-10.5 :00 HgA1C , Office (91404) HgA1C , Office 6.1 % (Normal) Range: 4.6 - 7.1 :00 Blood Glucose , Office (90133) Blood Glucose , Office 134 (Normal) :35 HgA1C , Office (24399) HgA1C , Office 6.4 % (Normal) Range: 4.6 - 7.1 :35 Blood Glucose , Office (79756) Blood Glucose , Office 129 (Normal) :00 Comp. Metabolic Panel (14) Comments: PATIENT WAS FASTINGPERFORMED BY: [facility]CoMor[facility] CenterBvxsyc4063 [facility] [id number] ALT (SGPT) 44 [iU]/L (Normal) Range: 0-55 AST (SGOT) 28 [iU]/L (Normal) Range: 0-40 Alkaline Phosphatase, S 92 [iU]/L (Normal) Range: 25-150 Bilirubin, Total 0.5 mg/dL (Normal) Range: 0.0-1.2 A/G Ratio 1.8 (Normal) Range: 1.1-2.5 Globulin, Total 2.4 g/dL (Normal) Range: 1.5-4.5 Albumin, Serum 4.4 g/dL (Normal) Range: 3.5-5.5 Protein, Total, Serum 6.8 g/dL (Normal) Range: 6.0-8.5 Calcium, Serum 9.6 mg/dL (Normal) Range: 8.7-10.2 Carbon Dioxide, Total 23 mmol/L (Normal) Range: 20-32 Chloride, Serum 103 mmol/L (Normal) Range: 97-108 Potassium, Serum 4.6 mmol/L (Normal) Range: 3.5-5.2 Sodium, Serum 138 mmol/L (Normal) Range: 134-144 BUN/Creatinine Ratio 21 (Abnormal) Range: 9-20 eGFR If Africn Am 92 mL/min/1.73 (Normal) Comments: Note: A persistent eGFR <60 mL/min/1.73 m2 (3 months or more) mayindicate chronic kidney disease. An eGFR >59 mL/min/1.73 m2 with anelevated urine protein also may indicate chronic kidney disease.Calculated using CKD-EPI formula. eGFR If NonAfricn Am 80 mL/min/1.73 (Normal) Creatinine, Serum 1.07 mg/dL (Normal) Range: 0.76-1.27 BUN 22 mg/dL (Normal) Range: 6-24 Glucose, Serum 113 mg/dL (Abnormal) Range: 65-99 :00 Lipid Panel With LDL/HDL Comments: PATIENT WAS FASTINGPERFORMED BY: [facility] [id number] Ratio LDL/HDL Ratio 3.3 {ratio_units} (Normal) Range: 0.0-3.6 LDL Cholesterol Calc 109 mg/dL (Abnormal) Range: 0-99 VLDL Cholesterol Jose De Jesus 40 mg/dL (Normal) Range: 5-40 HDL Cholesterol 33 mg/dL (Abnormal) Comments: According to ATP-III Guidelines, HDL-C >59 mg/dL is considered anegative risk factor for CHD. Triglycerides 200 mg/dL (Abnormal) Range: 0-149 Cholesterol, Total 182 mg/dL (Normal) Range: 100-199 :24 HgA1C , Office (20327) HgA1C , Office 6.1 % (Normal) Range: 4.6 - 7.1 :24 Blood Glucose , Office (88316) Blood Glucose , Office 105 (Normal) :13 MICROALBUMIN: CREATININE RATIO Comments: PATIENT WAS FASTINGPERFORMED BY: [facility] [facility] [id number] ([id number]) AND (78853) Microalb/Creat Ratio 114.0 {mg/g_creat} (Abnormal) Range: 0.0-30.0 Microalbumin, Urine 234.0 ug/mL (Abnormal) Range: 0.0-17.0 Creatinine, Urine 205.3 mg/dL (Normal) Range: 22.0-328.0 :13 Metabolic Panel, Basic Comments: PATIENT WAS FASTINGPERFORMED BY: [facility]6[address] [facility] [id number] Information: [id number] (46695) Calcium, Serum 9.6 mg/dL (Normal) Range: 8.7-10.2 Carbon Dioxide, Total 24 mmol/L (Normal) Range: 20-32 Chloride, Serum 103 mmol/L (Normal) Range: 97-108 Potassium, Serum 4.7 mmol/L (Normal) Range: 3.5-5.2 Sodium, Serum 139 mmol/L (Normal) Range: 135-145 Comments: Effective June 09, 2011 Sodium, Serum reference interval will be changing to: 134 - 144 mmol/L BUN/Creatinine Ratio 19 (Normal) Range: 9-20 eGFR If Africn Am 84 mL/min/1.73 (Normal) Comments: Note: A persistent eGFR <60 mL/min/1.73 m2 (3 months or more) mayindicate chronic kidney disease. An eGFR >59 mL/min/1.73 m2 with anelevated urine protein also may indicate chronic kidney disease.Calculated using CKD-EPI formula. eGFR If NonAfricn Am 73 mL/min/1.73 (Normal) Creatinine, Serum 1.16 mg/dL (Normal) Range: 0.76-1.27 BUN 22 mg/dL (Normal) Range: 6-24 Glucose, Serum 121 mg/dL (Abnormal) Range: 65-99 :09 Creatinine Clearance Comments: PERFORMED BY: [facility]CoMor[facility] CenterWtaghq9105 [facility] [id number] Information: 03/30@8AM 03/31@630AM Creatinine Clearance 104 mL/min (Normal) Range: 97-137 Comments: The above range is based on 1.73 square meter average body surfacearea. Creatinine, Ur 24hr 1636.3 {mg/24_hr} (Normal) Range: 1000.0-2000.0 Creatinine, Urine 59.5 mg/dL (Normal) Range: 22.0-328.0 eGFR If Africn Am 91 mL/min/1.73 (Normal) Comments: Note: A persistent eGFR <60 mL/min/1.73 m2 (3 months or more) mayindicate chronic kidney disease. An eGFR >59 mL/min/1.73 m2 with anelevated urine protein also may indicate chronic kidney disease.Calculated using CKD-EPI formula. eGFR If NonAfricn Am 79 mL/min/1.73 (Normal) Creatinine, Serum 1.09 mg/dL (Normal) Range: 0.76-1.27 :09 Protein Total, Qn, 24-Hr Comments: PERFORMED BY: TERENCE Shubham Housing Development Finance CompanyMorristown Medical CenterTcaaci7680 [facility] [id number]; appt 04/03/11 Urine Prot,24hr calculated 382.3 {mg/24_hr} (Abnormal) Range: 30.0-150.0 Protein,Total,Urine 13.9 mg/dL (Normal) Range: 0.0-15.0 :13 LIPID PANEL (20283) Comments: in three months (approximately); PATIENT WAS FASTINGPERFORMED BY: [employer] [id number] LDL/HDL Ratio 4.6 {ratio_units} (Abnormal) Range: 0.0-3.6 LDL Cholesterol Calc 132 mg/dL (Abnormal) Range: 0-99 VLDL Cholesterol Jose De Jesus 41 mg/dL (Abnormal) Range: 5-40 HDL Cholesterol 29 mg/dL (Abnormal) Comments: According to ATP-III Guidelines, HDL-C >59 mg/dL is considered anegative risk factor for CHD. Triglycerides 206 mg/dL (Abnormal) Range: 0-149 Cholesterol, Total 202 mg/dL (Abnormal) Range: 100-199 :13 HEPATIC FUNCTION PANEL Comments: in three months (approximately); PATIENT WAS FASTINGPERFORMED BY: Sh[facility] Housing [facility] Finance CompanyMorristown Medical CenterRmhslr3364 [facility] [id number] Information: [id number] (92698) ALT (SGPT) 53 [iU]/L (Normal) Range: 0-55 AST (SGOT) 38 [iU]/L (Normal) Range: 0-40 Alkaline Phosphatase, S 87 [iU]/L (Normal) Range: 25-150 Bilirubin, Direct 0.13 mg/dL (Normal) Range: 0.00-0.40 Bilirubin, Total 0.5 mg/dL (Normal) Range: 0.0-1.2 Albumin, Serum 4.3 g/dL (Normal) Range: 3.5-5.5 Protein, Total, Serum 6.8 g/dL (Normal) Range: 6.0-8.5 :30 Metabolic Panel, Basic Comments: 2 weeks; PATIENT NOT FASTINGPERFORMED BY: GLO Jmqjji5086 [facility] [id number] Information: [id number] (57540) Calcium, Serum 9.6 mg/dL (Normal) Range: 8.7-10.2 Carbon Dioxide, Total 23 mmol/L (Normal) Range: 20-32 Chloride, Serum 102 mmol/L (Normal) Range: 97-108 Potassium, Serum 4.6 mmol/L (Normal) Range: 3.5-5.2 Sodium, Serum 138 mmol/L (Normal) Range: 135-145 BUN/Creatinine Ratio 13 (Normal) Range: 9-20 eGFR If Africn Am 76 mL/min/1.73 (Normal) Comments: Note: A persistent eGFR <60 mL/min/1.73 m2 (3 months or more) mayindicate chronic kidney disease. An eGFR >59 mL/min/1.73 m2 with anelevated urine protein also may indicate chronic kidney disease.Calculated using CKD-EPI formula. eGFR If NonAfricn Am 66 mL/min/1.73 (Normal) Creatinine, Serum 1.26 mg/dL (Normal) Range: 0.76-1.27 BUN 16 mg/dL (Normal) Range: 6-24 Glucose, Serum 112 mg/dL (Abnormal) Range: 65-99 :59 HgA1C , Office (69445) HgA1C , Office 6 % (Normal) Range: 4.6 - 7.1 :04 Microscopic Examination Comments: PATIENT WAS FASTINGPERFORMED BY: GLO Gzdepw8861 [facility] [id number] Bacteria None seen (Normal) Mucus Threads Present (Normal) Epithelial Cells (non renal) None seen {/hpf} (Normal) Range: 0 - 10 RBC 0-3 {/hpf} (Normal) Range: 0 - 3 WBC 0-5 {/hpf} (Normal) Range: 0 - 5 :04 Protein Electro, Random Urine Comments: PATIENT WAS FASTINGPERFORMED BY: Shub[facility] Housing Development Finance CompanyMorristown Medical CenterNcxicr5271 [facility] [id number] Please note: SPRCS (Normal) Comments: Protein electrophoresis scan will follow via computer, mail, orcourier delivery. M-Jozef, % Not Observed % (Normal) Beta Globulin, U 8.1 % (Normal) Gamma Globulin, U 4.8 % (Normal) Vrjzo-7-Ybzvthmz, U 4.2 % (Normal) Wfcnr-2-Vlgajzkw, U 3.9 % (Normal) Albumin, U 79.0 % (Normal) Protein,Total,Urine 70.0 mg/dL (Abnormal) Range: 0.0-15.0 :04 Protein Electro.,S Comments: PATIENT WAS FASTINGPERFORMED BY: Sh[facility] Finance CompanyMorristown Medical CenterFezqzz0501 [facility] [id number] Information: [id number] Please note: SPRCS (Normal) Comments: Protein electrophoresis scan will follow via computer, mail, orcourier delivery. A/G Ratio 1.3 (Normal) Range: 0.7-2.0 Globulin, Total 3.1 g/dL (Normal) Range: 2.0-4.5 M-Jozef Not Observed g/dL (Normal) Gamma Globulin 0.9 g/dL (Normal) Range: 0.5-1.6 Beta Globulin 1.0 g/dL (Normal) Range: 0.6-1.3 Afkyq-5-Ymdtecsc 0.3 g/dL (Normal) Range: 0.1-0.4 Yhptk-4-Qivejicu 1.0 g/dL (Normal) Range: 0.4-1.2 Albumin 4.1 g/dL (Normal) Range: 3.2-5.6 Protein, Total, Serum 7.2 g/dL (Normal) Range: 6.0-8.5 Written Authorization WAR (Normal) Comments: PATIENT WAS FASTINGPERFORMED BY: [facility]rapeutics[facility] [id number] :04 Comments: Written Authorization Received.Authorization received from CHARLEE CUELLAR [id number] by Nkechi Shaw :04 PSA (PROSTATE SPECIFIC Comments: PATIENT WAS FASTINGPERFORMED BY: [facility]rapeutics[facility]6370 [facility] [id number] ANTIGEN) (V76.44) Prostate Specific Ag, 0.8 ng/mL (Normal) Range: 0.0-4.0 Serum Comments: [place] ECLIA methodology. .According to the [employer], Serum PSA shoulddecrease and remain at undetectable levels after radicalprostatectomy. The AUA defines biochemical recurrence as an initialPSA value 0.2 ng/mL or greater followed by a subsequent confirmatoryPSA value 0.2 ng/mL or greater.Values obtained with d ifferent assay methods or kits cannot be usedinterchangeably. Results cannot be interpreted as absolute evidenceof the presence or absence of malignant disease. :04 MICROALBUMIN: CREATININE RATIO Comments: PATIENT WAS FASTINGPERFORMED BY: [facility] [id number] ([id number]) AND (35131) Microalb/Creat Ratio 277.7 {mg/g_creat} (Abnormal) Range: 0.0-30.0 Microalbumin, Urine 535.4 ug/mL (Abnormal) Range: 0.0-17.0 Creatinine, Urine 192.8 mg/dL (Normal) Range: 22.0-328.0 :04 URINALYSIS, W/ MICRO (95344) Comments: PATIENT WAS FASTINGPERFORMED BY: [facility] [id number] Microscopic Examination See below: (Normal) Nitrite, Urine Negative (Normal) Urobilinogen,Semi-Qn 0.2 mg/dL (Normal) Range: 0.0-1.9 Bilirubin Negative (Normal) Occult Blood Negative (Normal) Ketones Negative (Normal) Glucose Negative (Normal) Protein 2+ (Abnormal) WBC Esterase Negative (Normal) Appearance Clear (Normal) Urine-Color Yellow (Normal) pH 6.0 (Normal) Range: 5.0-7.5 Specific Norman 1.024 (Normal) Range: 1.005-1.030 :04 METABOLIC PANEL, COMPREHENSIVE Comments: PATIENT WAS FASTINGPERFORMED BY: [facility] [id number] ([id number]) ALT (SGPT) 23 [iU]/L (Normal) Range: 0-55 AST (SGOT) 18 [iU]/L (Normal) Range: 0-40 Alkaline Phosphatase, S 89 [iU]/L (Normal) Range: 25-150 Bilirubin, Total 0.5 mg/dL (Normal) Range: 0.0-1.2 A/G Ratio 1.9 (Normal) Range: 1.1-2.5 Globulin, Total 2.4 g/dL (Normal) Range: 1.5-4.5 Albumin, Serum 4.5 g/dL (Normal) Range: 3.5-5.5 Protein, Total, Serum 6.9 g/dL (Normal) Range: 6.0-8.5 Calcium, Serum 9.6 mg/dL (Normal) Range: 8.7-10.2 Carbon Dioxide, Total 24 mmol/L (Normal) Range: 20-32 Chloride, Serum 103 mmol/L (Normal) Range: 97-108 Potassium, Serum 4.6 mmol/L (Normal) Range: 3.5-5.2 Sodium, Serum 141 mmol/L (Normal) Range: 135-145 BUN/Creatinine Ratio 17 (Normal) Range: 9-20 eGFR If Africn Am 80 mL/min/1.73 (Normal) Comments: Note: A persistent eGFR <60 mL/min/1.73 m2 (3 months or more) mayindicate chronic kidney disease. An eGFR >59 mL/min/1.73 m2 with anelevated urine protein also may indicate chronic kidney disease.Calculated using CKD-EPI formula. eGFR If NonAfricn Am 69 mL/min/1.73 (Normal) Creatinine, Serum 1.21 mg/dL (Normal) Range: 0.76-1.27 BUN 21 mg/dL (Normal) Range: 6-24 Glucose, Serum 116 mg/dL (Abnormal) Range: 65-99 82-Hpu-87880:04 LIPID PANEL (69558) Comments: PATIENT WAS FASTINGPERFORMED BY: LabCoMorristown Medical CenterOckqqv4293 [facility] [id number] LDL/HDL Ratio 5.7 {ratio_units} (Abnormal) Range: 0.0-3.6 LDL Cholesterol Calc 194 mg/dL (Abnormal) Range: 0-99 Comments: Possible Familial Hypercholesterolemia. FH should be suspected whenfasting LDL cholesterol is above 189 mg/dL or non-HDL cholesterolis above 219 mg/dL. A family history of high cholesterol and heartdise ase in 1st degree relatives should be collected. J Clin Zsrtrfo9665;5:133-140 VLDL Cholesterol Jose De Jesus 69 mg/dL (Abnormal) Range: 5-40 HDL Cholesterol 34 mg/dL (Abnormal) Comments: According to ATP-III Guidelines, HDL-C >59 mg/dL is considered anegative risk factor for CHD. Triglycerides 346 mg/dL (Abnormal) Range: 0-149 Cholesterol, Total 297 mg/dL (Abnormal) Range: 100-199 64-Xca-60037:04 CBC WITH MANUAL DIFF Comments: PATIENT WAS FASTINGPERFORMED BY: LabCoMorristown Medical CenterSzloxb1245 [facility] [id number] Information: [id number] ([id number]) Immature Grans (Abs) 0.0 {x10E3/uL} (Normal) Range: 0.0-0.1 Immature Granulocytes 0 % (Normal) Range: 0-2 Comments: Please note reference interval change Baso (Absolute) 0.1 {x10E3/uL} (Normal) Range: 0.0-0.2 Eos (Absolute) 0.2 {x10E3/uL} (Normal) Range: 0.0-0.4 Monocytes(Absolute) 0.7 {x10E3/uL} (Normal) Range: 0.1-1.0 Lymphs (Absolute) 2.5 {x10E3/uL} (Normal) Range: 0.7-4.5 Neutrophils (Absolute) 6.7 {x10E3/uL} (Normal) Range: 1.8-7.8 Basos 1 % (Normal) Range: 0-3 Eos 2 % (Normal) Range: 0-7 Monocytes 7 % (Normal) Range: 4-13 Lymphs 24 % (Normal) Range: 14-46 Neutrophils 66 % (Normal) Range: 40-74 Platelets 243 {x10E3/uL} (Normal) Range: 140-415 RDW 13.7 % (Normal) Range: 11.7-15.0 MCHC 34.7 g/dL (Normal) Range: 32.0-36.0 MCH 32.8 pg (Normal) Range: 27.0-34.0 MCV 95 fL (Normal) Range: 80-98 Hematocrit 49.0 % (Normal) Range: 36.0-50.0 Hemoglobin 17.0 g/dL (Normal) Range: 12.5-17.0 RBC 5.18 {x10E6/uL} (Normal) Range: 4.10-5.60 WBC 10.2 {x10E3/uL} (Normal) Range: 4.0-10.5 Plan of Care Name Dates Details Instructions Hypertension with heart disease : Follow up in 3 weeks Indication: Hypertension with heart disease Hypertension with heart disease : BP MONITORING - SELF Indication: Hypertension with heart disease Type 2 diabetes mellitus without complication : Follow up in 3 months Indication: Type 2 diabetes mellitus without complication Left bundle branch block (Renamed from Block, bundle branch, left) : Reviewed [employer] Letter Indication: Left bundle branch block (Renamed from Block, bundle branch, left) Left bundle branch block (Renamed from Block, bundle branch, left) : Reviewed Diagnostic Tests Indication: Left bundle branch block (Renamed from Block, bundle branch, left) Coronary artery disease, non-occlusive : Reviewed Diagnostic Tests Indication: Coronary artery disease, non-occlusive Hypercholesteremia : Cholesterol mgmt Indication: Hypercholesteremia Hypertension with heart disease : Diet, Exercise, and Wt loss Indication: Hypertension with heart disease Hypertension with heart disease : HTN/CAD Red Flags Indication: Hypertension with heart disease Hypertension with heart disease : BP MONITORING - SELF Indication: Hypertension with heart disease Hypertension with heart disease : Continue Current Prescription(s) Indication: Hypertension with heart disease BMI 30.0-30.9,adult : Eprescribed prescriptions (G8553) Indication: BMI 30.0-30.9,adult Type 2 diabetes mellitus without complication : Follow up in 3 months Indication: Type 2 diabetes mellitus without complication Hypertension with heart disease : Follow up in 3-4 weeks Indication: Hypertension with heart disease Hypertension with heart disease : BP MONITORING - SELF Indication: Hypertension with heart disease CKD (chronic kidney disease), stage III : Reviewed [employer] Letter Indication: CKD (chronic kidney disease), stage III Type 2 diabetes mellitus without complication : Reviewed Lab Indication: Type 2 diabetes mellitus without complication Hypercholesteremia : Cholesterol mgmt Indication: Hypercholesteremia Hypertension with heart disease : HTN/CAD Red Flags Indication: Hypertension with heart disease Coronary artery disease, non-occlusive : Reviewed Supervisor [employer] Letter Indication: Coronary artery disease, non-occlusive Coronary artery disease, non-occlusive : Continue Current Prescription(s) Indication: Coronary artery disease, non-occlusive Type 2 diabetes mellitus without complication : Follow up in 3 months Indication: Type 2 diabetes mellitus without complication Type 2 diabetes mellitus without complication : Reviewed Lab Indication: Type 2 diabetes mellitus without complication Coronary artery disease, non-occlusive : Reviewed Supervisor [employer] Letter Indication: Coronary artery disease, non-occlusive Hypertension with heart disease : HTN/CAD Red Flags Indication: Hypertension with heart disease Hypercholesteremia : Cholesterol mgmt Indication: Hypercholesteremia Type 2 diabetes mellitus without complication : Follow up in 4 months Indication: Type 2 diabetes mellitus without complication Hypertension with heart disease : HTN/CAD Red Flags Indication: Hypertension with heart disease Hypercholesteremia : Cholesterol mgmt Indication: Hypercholesteremia Coronary artery disease, non-occlusive : Continue Current Prescription(s) Indication: Coronary artery disease, non-occlusive Coronary artery disease, non-occlusive : Reviewed Supervisor [employer] Letter Indication: Coronary artery disease, non-occlusive Type 2 diabetes mellitus without complication : Eprescribed prescriptions (G8553) Indication: Type 2 diabetes mellitus without complication Type 2 diabetes mellitus without complication : Follow up in 3 months Indication: Type 2 diabetes mellitus without complication Coronary artery disease, non-occlusive : Continue Current Prescription(s) Indication: Coronary artery disease, non-occlusive Coronary artery disease, non-occlusive : Reviewed Supervisor [employer] Letter- discharged Indication: Coronary artery disease, non-occlusive Hypertension with heart disease : Diet, Exercise, and Wt loss Indication: Hypertension with heart disease Hypertension with heart disease : HTN/CAD Red Flags Indication: Hypertension with heart disease Hypercholesteremia : Cholesterol mgmt Indication: Hypercholesteremia Type 2 diabetes mellitus without complication : Eprescribed prescriptions (G8553) Indication: Type 2 diabetes mellitus without complication Hypertension with heart disease : Continue Current Prescription(s) Indication: Hypertension with heart disease Type 2 diabetes mellitus without complication : Follow up in 3 months Indication: Type 2 diabetes mellitus without complication Hypertension with heart disease : HTN/CAD Red Flags Indication: Hypertension with heart disease Hypercholesteremia : Cholesterol mgmt Indication: Hypercholesteremia Type 2 diabetes mellitus without complication : Eprescribed prescriptions (G8553) Indication: Type 2 diabetes mellitus without complication Type 2 diabetes mellitus without complication : Diabetes and Exercise: Preventing Low Blood Sugar: blood sugar Indication: Type 2 diabetes mellitus without complication Type 2 diabetes mellitus without complication : Follow up in 3 months Indication: Type 2 diabetes mellitus without complication Coronary artery disease, non-occlusive : Reviewed Diagnostic Tests Indication: Coronary artery disease, non-occlusive Hypertension with heart disease : HTN/CAD Red Flags Indication: Hypertension with heart disease Hypercholesteremia : Cholesterol mgmt Indication: Hypercholesteremia Type 2 diabetes mellitus without complication : *Diabetes Education Indication: Type 2 diabetes mellitus without complication Nonsmoker : Eprescribed prescriptions (G8553) Indication: Nonsmoker Type 2 diabetes mellitus without complication : Follow up in 4 months Indication: Type 2 diabetes mellitus without complication Encounter for screening for malignant neoplasm of colon (Renamed from Special screening for malignant neoplasms, colon) : *Colon Cancer Screening Indication: Encounter for screening for malignant neoplasm of colon (Renamed from Special screening for malignant neoplasms, colon) Hypertension with heart disease : HTN/CAD Red Flags Indication: Hypertension with heart disease Coronary artery disease, non-occlusive : Reviewed [employer] Letter Indication: Coronary artery disease, non-occlusive Type 2 diabetes mellitus without complication : Eprescribed prescriptions (G8553) Indication: Type 2 diabetes mellitus without complication Type 2 diabetes mellitus without complication : Blood Glucose Test: blood Indication: Type 2 diabetes mellitus without complication Type 2 diabetes mellitus without complication : Eprescribed prescriptions (G8553) Indication: Type 2 diabetes mellitus without complication Benign essential HTN : Eprescribed prescriptions (G8553) Indication: Benign essential HTN Other abnormal glucose : Diabetes Overview (Living with Diabetes): diabetes type 2 Indication: Other abnormal glucose Benign essential HTN : *Akin Inhibitor Side Effects Indication: Benign essential HTN Hypercholesteremia : Cholesterol mgmt Indication: Hypercholesteremia Hypercholesteremia : *Cholesterol - Medication Side Effects Indication: Hypercholesteremia Trigger finger : *Trigger Point Injections Indication: Trigger finger Planned Observations CALCIFIDIOL ([id number]) VIT D 25Indication: Vitamin D deficiency On: :21 Request TSH ([id number])Indication: Type 2 diabetes mellitus without complication On: 12-Omn-95228:21 Request URINALYSIS, W/ MICRO ([id number])Indication: Hypertension with heart disease On: :20 Request MICROALBUMIN: CREATININE RATIO ([id number]) AND ([id number])Indication: Hypertension with heart disease On: :20 Request METABOLIC PANEL, COMPREHENSIVE ([id number])Indication: Hypertension with heart disease On: 76-Cwv-36291:20 Request LIPOPROTEIN, BLD, BY NMR ([id number])Indication: Hypercholesteremia On: :20 Request CBC W/AUTO DIFF WBC ([id number])Indication: Hypertension with heart disease On: :20 Request CALCIFEDIOL ([id number])Indication: Vitamin D deficiency On: :20 Request TSH ([id number])Indication: Type 2 diabetes mellitus without complication On: :20 Request URINALYSIS, W/ MICRO ([id number])Indication: Hypertension with heart disease On: :20 Request MICROALBUMIN: CREATININE RATIO ([id number]) AND ([id number])Indication: Hypertension with heart disease On: :20 Request METABOLIC PANEL, COMPREHENSIVE ([id number])Indication: Hypertension with heart disease On: :20 Request LIPID PANEL ([id number])Indication: Hypertension with heart disease On: : Request CBC with auto diff ([id number])Indication: Hypertension with heart disease On: :20 Request HDL CHOLESTEROL-DIRECT ([id number])Indication: Hypercholesteremia On: 58-Rno-735786:00 Request CALCIFEDIOL ([id number])Indication: Vitamin D deficiency On: 05-Utn-825709:59 Request FECAL OCCULT- Tubes sent home ([id number])Indication: Encounter for screening for malignant neoplasm of colon (Renamed from Special screening for malignant neoplasms, colon) On: :48 Request CBC with auto diff ([id number])Indication: Type 2 diabetes mellitus without complication On: :40 Request Comments: all in six months (approximately) MICROALBUMIN: CREATININE RATIO ([id number]) AND ([id number])Indication: Type 2 diabetes mellitus without complication On: :40 Request METABOLIC PANEL, COMPREHENSIVE ([id number])Indication: Type 2 diabetes mellitus without complication On: :40 Request LIPID PANEL ([id number])Indication: Type 2 diabetes mellitus without complication On: :40 Request MICROALBUMIN: CREATININE RATIO ([id number]) AND ([id number])Indication: Type 2 diabetes mellitus without complication On: :09 Request PSA (PROSTATE SPECIFIC ANTIGEN) ([id number])Indication: Type 2 diabetes mellitus without complication On: :08 Request CBC, PLATELETS & MANUAL DIFF ([id number])Indication: Type 2 diabetes mellitus without complication On: :08 Request METABOLIC PANEL, COMPREHENSIVE ([id number])Indication: Type 2 diabetes mellitus without complication On: :08 Request LIPID PANEL ([id number])Indication: Type 2 diabetes mellitus without complication On: :08 Request MICROALBUMIN: CREATININE RATIO ([id number]) AND ([id number])Indication: Type 2 diabetes mellitus without complication On: :24 Request METABOLIC PANEL, COMPREHENSIVE ([id number])Indication: Type 2 diabetes mellitus without complication On: :24 Request LIPID PANEL ([id number])Indication: Type 2 diabetes mellitus without complication On: :24 Request CBC W/AUTO DIFF WBC ([id number])Indication: Type 2 diabetes mellitus without complication On: :24 Request Lipid Panel ([id number])Indication: Benign essential HTN On: :48 Request Metabolic Panel, Comprehensive ([id number])Indication: Benign essential HTN On: :48 Request 24 hour urine for Protein ([id number])Indication: Benign essential HTN On: :16 Request UPEP ([id number])Indication: Proteinuria On: :09 Request SPEP ([id number])Indication: Proteinuria On: :09 Request Planned Encounters Medical; 3 Month FU - On: 19-Aug-2018 7:30 [facility] Jessica Redmond DO, DO, Kathleen Planned Procedures Nuclear Stress Test/Stress On: 20-May-2018 Intent SPECT/TreadmillBy: Jessica Redmond DO, DO, Kathleen Flu Vaccine (Quadrivalent) [id number]: On: 20-May-2018 Intent Mar Mendiola Comments: Lot #[id number]-L dltd, IMAmount: 0.5mlVIS reviewed and ABN signedgiven by:JACEK Bauer reviewed and ABN signed ELECTROCARDIOGRAM, COMPLETE (ECG) On: 17-Feb-2018 Intent ([id number])By: Jessica Redmond DO Comments: nsr LBBB-old, no acute chg Jessica BOOTHE COMPLETE ULTRASOUND OF KIDNEY On: 03-Dec-2017 Intent ([id number])By: Jessica Redmond DO Comments: b/l DO, Jessica ELECTROCARDIOGRAM, COMPLETE (ECG) On: 15-Apr-2017 Intent ([id number])By: Jessica Redmond DO Comments: nsr - LBBB-old , Jessica Flu Vaccine (Quadrivalent) 23875Mj: On: 15-Apr-2017 Intent Ruy Jessica BOOTHE Ruy BOOTHE, Comments: Lot #[id number]/07/17ite-L dltd, IMDose prefilled syringegiven by:JULIANNE Roth and ABN signed Jessica ELECTROCARDIOGRAM, COMPLETE (ECG) On: 12-May-2016 Intent ([id number])By: Jessica Redmond DO Comments: nsr LBBB- - no acute chg Mitzy BOOTHEeen Flu Vaccine (Quadrivalent) [id number]: On: 12-May-2016 Intent RuyJessica yang DO Ruy BOOTHE, Comments: Lot #[id number]/30/17ite-L dltd, IMDose prefilled syringegiven by:JULIANNE Roth and ABN signed Jessica CT - Chest (Without Contrast)By: On: 09-Nov-2015 Intent Charlee Cuellar MD Comments: LDCT 30 plus year history TDAP VACCINE >7 IM ([id number])By: Edmond On: 11-May-2015 Intent Charlee LARA Comments: boostrixlot [id number] 10.9.17L Dltd, IMPrefilled syringeMegan JULIANNE Munroe signed ADMINISTRATION OF INFLUENZA VIRUS On: 11-May-2015 Intent VACCINE ([id number])By: Charlee Cuellar MD Flu Vaccine (Quadrivalent) 01788Wv: On: 11-May-2015 Intent Charlee Cuellar MD Comments: Lot #:[id number] date:Amount given:0.5mlRoute: IMSite given:L DltdGiven by: Iris TIRADO and ABN signed Quad Flu Flu Vaccine (Quadrivalent) [id number]: On: 12-May-2014 Intent Charlee Cuellar MD ADMINISTRATION OF INFLUENZA VIRUS On: 12-May-2014 Intent VACCINE (G0008)By: Charlee Cuellar MD EKG ([id number])By: Charlee Cuellar MD On: 10-Feb-2014 Intent Comments: see scanned document of test done to see results reviewed today with patient Nuclear Stress Test/Stress On: 10-Feb-2014 Intent SPECT/TreadmillBy: Charlee Cuellar MD Eprescribed prescriptions (G8553)By: On: 10-Nov-2013 Intent Charlee Cuellar MD Nuclear Stress Test/Stress On: 05-May-2013 Intent SPECT/TreadmillBy: Charlee Cuellar MD EKG ([id number])By: Charlee Cuellar MD On: 05-May-2013 Intent Comments: see scanned document of test done to see results reviewed today with patient Eprescribed prescriptions (G8553)By: On: 03-Dec-2012 Intent Debbie Cisneros FLU VAC, SPLIT, >3 YEARS, INTRAMUSC On: 23-Apr-2012 Intent ([id number])By: Iris Munroe LPN Comments: declined ELECTROCARDIOGRAM, COMPLETE (ECG) On: 23-Apr-2012 Intent ([id number])By: Iris Munroe LPN IMMUNIZ ADMNIN, 1 VAC, SNGL/COMBO On: 23-Apr-2012 Intent ([id number])By: Iris Munroe LPN Eprescribed prescriptions (G8553)By: On: 23-Apr-2012 Intent Iris Munroe LPN FLU VAC, SPLIT, >3 YEARS, INTRAMUSC On: 03-Apr-2011 Intent ([id number])By: Iris Munroe LPN Comments: DECLINED IMMUNIZ ADMNIN, 1 VAC, SNGL/COMBO On: 03-Apr-2011 Intent ([id number])By: Iris Munroe LPN Nuclear Stress Test/Stress On: 28-Feb-2011 Intent SPECT/TreadmillBy: Charlee Cuellar MD Echo CompleteBy: Charlee Cuellar MD On: 28-Feb-2011 Intent EKG ([id number])By: Charlee Cuellar MD On: 28-Feb-2011 Intent Instructions Name Dates Details Type 2 diabetes mellitus without complication : How to access health information online Indication: Type 2 diabetes mellitus without complication Type 2 diabetes mellitus without complication : How to access health information online - Detail Indication: Type 2 diabetes mellitus without complication Type 2 diabetes mellitus without complication : Patient Instructions Indication: Type 2 diabetes mellitus without complication BMI 30.0-30.9,adult : How to access health information online Indication: BMI 30.0-30.9,adult BMI 30.0-30.9,adult : How to access health information online - Detail Indication: BMI 30.0-30.9,adult BMI 30.0-30.9,adult : Patient Instructions Indication: BMI 30.0-30.9,adult Type 2 diabetes mellitus without complication : How to access health information online Indication: Type 2 diabetes mellitus without complication Type 2 diabetes mellitus without complication : How to access health information online - Detail Indication: Type 2 diabetes mellitus without complication Type 2 diabetes mellitus without complication : Patient Instructions Indication: Type 2 diabetes mellitus without complication Type 2 diabetes mellitus without complication : How to access health information online Indication: Type 2 diabetes mellitus without complication Type 2 diabetes mellitus without complication : How to access health information online - Detail Indication: Type 2 diabetes mellitus without complication Type 2 diabetes mellitus without complication : Patient Instructions Indication: Type 2 diabetes mellitus without complication Type 2 diabetes mellitus without complication : How to access health information online Indication: Type 2 diabetes mellitus without complication Type 2 diabetes mellitus without complication : How to access health information online - Detail Indication: Type 2 diabetes mellitus without complication Type 2 diabetes mellitus without complication : Patient Instructions Indication: Type 2 diabetes mellitus without complication Type 2 diabetes mellitus without complication : How to access health information online Indication: Type 2 diabetes mellitus without complication Type 2 diabetes mellitus without complication : How to access health information online - Detail Indication: Type 2 diabetes mellitus without complication Type 2 diabetes mellitus without complication : Patient Instructions Indication: Type 2 diabetes mellitus without complication Type 2 diabetes mellitus without complication : How to access health information online Indication: Type 2 diabetes mellitus without complication Type 2 diabetes mellitus without complication : How to access health information online - Detail Indication: Type 2 diabetes mellitus without complication Type 2 diabetes mellitus without complication : Patient Instructions Indication: Type 2 diabetes mellitus without complication Nonsmoker : How to access health information online Indication: Nonsmoker Nonsmoker : How to access health information online - Detail Indication: Nonsmoker Nonsmoker : Patient Instructions Indication: Nonsmoker Type 2 diabetes mellitus without complication : How to access health information online Indication: Type 2 diabetes mellitus without complication Type 2 diabetes mellitus without complication : How to access health information online - Detail Indication: Type 2 diabetes mellitus without complication Type 2 diabetes mellitus without complication : Patient Instructions Indication: Type 2 diabetes mellitus without complication Type 2 diabetes mellitus without complication : How to access health information online Indication: Type 2 diabetes mellitus without complication Type 2 diabetes mellitus without complication : How to access health information online - Detail Indication: Type 2 diabetes mellitus without complication Type 2 diabetes mellitus without complication : Patient Instructions Indication: Type 2 diabetes mellitus without complication Benign essential HTN : How to access health information online Indication: Benign essential HTN Benign essential HTN : How to access health information online - Detail Indication: Benign essential HTN Benign essential HTN : Patient Instructions Indication: Benign essential HTN Type 2 diabetes mellitus without complication : How to access health information online Indication: Type 2 diabetes mellitus without complication Type 2 diabetes mellitus without complication : How to access health information online - Detail Indication: Type 2 diabetes mellitus without complication Type 2 diabetes mellitus without complication : Patient Instructions Indication: Type 2 diabetes mellitus without complication Type 2 diabetes mellitus without complication : How to access health information online Indication: Type 2 diabetes mellitus without complication Type 2 diabetes mellitus without complication : How to access health information online - Detail Indication: Type 2 diabetes mellitus without complication Type 2 diabetes mellitus without complication : Patient Instructions Indication: Type 2 diabetes mellitus without complication Benign essential HTN : How to access health information online Indication: Benign essential HTN Benign essential HTN : How to access health information online - Detail Indication: Benign essential HTN Type 2 diabetes mellitus without complication : Patient Instructions Indication: Type 2 diabetes mellitus without complication Other abnormal glucose : Patient Instructions Indication: Other abnormal glucose Other abnormal glucose : Patient Instructions Indication: Other abnormal glucose Other abnormal glucose : Patient Instructions Indication: Other abnormal glucose Encounters Office Visit On: 20-May-2018 7:49 Encounter Reason: Follow up for chronic medical issues - The patient feels well with minor complaints, has good energy level and is sleeping poorly. Patient has been compliant with instructions. Current medication use: n End: 20-May-2018 8:41 o side effects and compliant with dosing regimen. Patient sleeps 5 hours per night. Nutrition: balanced diet and supplemental vitamins. The medical issues the patient is following up for include All humberto ntified problems below, blood sugar issues, high blood pressure and high cholesterol. blood pressure range :.Encounter Diagnosis: Type 2 diabetes mellitus without complication, Need for prophylactic vaccination and inoculation against influenza (Renamed from Need for immunization against influenza), Coronary artery disease, non- occlusive, Vitamin D deficiency, Hypertension with heart disease, Hypercholesteremia, Left bundle branch block (Renamed from Block, bundle branch, left) [facility] Office Visit On: 24-Mar-2018 8:03 Encounter Reason: Follow up HypertensionEncounter Diagnosis: Nonsmoker, BMI 30.0- 30.9,adult, Hypertension with heart disease End: 24-Mar-2018 9:05 [facility] Office Visit On: 17-Feb-2018 8:44 Encounter Reason: Follow up tests - Date: (02/08/18)., [ADDITIONAL REASON] Follow up for chronic medical issues - The patient feels well with minor complai End: 17-Feb-2018 10:33 nts, has good energy level and is sleeping poorly. Patient has been compliant with instructions. Current medication use: no side effects and compliant with dosing regimen. Patient sleeps 5 hours per nig ht. Nutrition: balanced diet and supplemental vitamins. The medical issues the patient is following up for include All identified problems below, blood sugar issues, high blood pressure and high cholesterol. blood pressure range :. Encounter Diagnosis: Nonsmoker, BMI 30.0-30.9,adult, Type 2 diabetes mellitus without complication, Coronary artery disease, non-occlusive, Hypertension with heart disease, Vitamin D deficiency, Hypercholesteremia, CKD (chronic kidney disease), stage III [facility] Lab Order On: 11-Feb-2018 9:42 Encounter Diagnosis: Hyperkalemia End: 11-Feb-2018 9:43 [facility] Phone Encounter On: 03-Dec-2017 15:05 Encounter Diagnosis: Renal insufficiency End: 03-Dec-2017 15:09 [facility] Office Visit On: 25-Nov-2017 8:09 Encounter Reason: Follow up tests - Date: (11/12/17)., [ADDITIONAL REASON] Follow up for chronic medical issues - The patient feels well with minor complai End: 25-Nov-2017 8:32 nts, has good energy level and is sleeping well. Patient has been compliant with instructions. Current medication use: no side effects and compliant with dosing regimen. Patient sleeps 5 hours per night . Nutrition: balanced diet and supplemental vitamins. The medical issues the patient is following up for include All identified problems below, blood sugar issues, high blood pressure and high cholesterol. blood pressure range :. Encounter Diagnosis: BMI 32.0-32.9,adult, History of tobacco abuse, Type 2 diabetes mellitus without complication, Hypercholesteremia, Hypertension with heart disease, Coronary artery disease, non-occlusive, Vitamin D deficiency, Renal insufficiency [facility] Office Visit On: 22-Jul-2017 7:58 Encounter Reason: Follow up tests - Diagnostic tests include other (labs)., [ADDITIONAL REASON] Follow up for chronic medical issues - The patient feels well with minor complai End: 22-Jul-2017 8:43 nts, has good energy level and is sleeping well. Patient has been compliant with instructions. Current medication use: no side effects and compliant with dosing regimen. Patient sleeps 5 hours per night . Nutrition: balanced diet and supplemental vitamins. The medical issues the patient is following up for include All identified problems below, blood sugar issues, cardiac issues, high blood pressure and high cholesterol. Encounter Diagnosis: Type 2 diabetes mellitus without complication, Nonsmoker, BMI 32.0-32.9,adult, Vitamin D deficiency, Coronary artery disease, non-occlusive, Left bundle branch block (Renamed from Block, bundle branch, left), Hypercholesteremia, Hypertension with heart disease [facility] Office Visit On: 15-Apr-2017 7:58 Encounter Reason: Follow up tests - Date: (March 2017)., [ADDITIONAL REASON] Follow up for chronic medical issues - The patient feels well with minor complai End: 15-Apr-2017 10:23 nts, has good energy level and is sleeping well. Patient has been compliant with instructions. Current medication use: no side effects and compliant with dosing regimen. Patient sleeps 5 hours per night . Nutrition: balanced diet and supplemental vitamins. The medical issues the patient is following up for include All identified problems below, blood sugar issues, cardiac issues, high blood pressure and high cholesterol. blood pressure range :. Encounter Diagnosis: Type 2 diabetes mellitus without complication, BMI 31.0-31.9,adult, Nonsmoker, History of tobacco abuse, Need for prophylactic vaccination and inoculation against influenza (V04.81), Hypercholesteremia, Left bundle branch block (Renamed from Block, bundle branch, left), Vitamin D deficiency, Coronary artery disease, non-occlusive, Hypertension with heart disease, Renal insufficiency [facility] Office Visit On: 07-Jan-2017 8:48 Encounter Reason: Follow up for chronic medical issues - The patient feels well with minor complaints, has good energy level and is sleeping well. Patient has been compliant with instructions. Current medication use: no End: 07-Jan-2017 9:43 side effects and compliant with dosing regimen. Patient sleeps 5 hours per night. Nutrition: balanced diet and supplemental vitamins. The medical issues the patient is following up for include All ident ified problems below, cardiac issues, high blood pressure and high cholesterol. blood pressure range :., [ADDITIONAL REASON] Follow up tests - Date: (12/30/16 labs). Encounter Diagnosis: Type 2 diabetes mellitus without complication, BMI 30.0-30.9,adult, Nonsmoker, Hypercholesteremia, Vitamin D deficiency, Hypertension with heart disease, Coronary artery disease, non-occlusive, Left bundle branch block (Renamed from Block, bundle branch, left), Colon polyps [facility] Phone Encounter On: 18-Sep-2016 15:59 Encounter Diagnosis: Vitamin D deficiency, Hypercholesteremia End: 18-Sep-2016 16:00 [facility] Office Visit On: 18-Sep-2016 9:12 Encounter Reason: Follow up tests - Date: (09/04/16 labs)., [ADDITIONAL REASON] Follow up for chronic medical issues - The patient feels well with minor complai End: 18-Sep-2016 10:09 nts, has good energy level and is sleeping well. Patient has been compliant with instructions. Current medication use: no side effects and compliant with dosing regimen. Patient sleeps 5 hours per night . Nutrition: balanced diet and no supplemental vitamins & iron. The medical issues the patient is following up for include All identified problems below, blood sugar issues, high blood pressure and high cholesterol. blood pressure range :. Encounter Diagnosis: Type 2 diabetes mellitus without complication, Nonsmoker, BMI 30.0-30.9,adult, Coronary artery disease, non-occlusive, Left bundle branch block (Renamed from Block, bundle branch, left), Hypertension with heart disease, Hypercholesteremia, Vitamin D deficiency [facility] Office Visit On: 04-Sep-2016 9:48 Encounter Diagnosis: Encounter for screening fecal occult blood testing End: 04-Sep-2016 9:50 [facility] Office Visit On: 12-May-2016 7:54 Encounter Reason: Follow up for chronic medical issues - The patient feels well with no complaints. Patient has been compliant with instructions. Current medication use: experiencing side effects (Dizziness with the vals End: 12-May-2016 9:01 jimena so wondered if can start taking it at night instead of lunch because I want to know if okay to take it with the BB) and compliant with dosing regimen. Patient sleeps 5 hours per night. Impact of d isease: emotional impact-mild. Nutrition: balanced diet and supplemental vitamins. The medical issues the patient is following up for include blood sugar issues, cardiac issues, high blood pressure, high cholesterol and other (protenuria ). Encounter Diagnosis: Type 2 diabetes mellitus without complication, Need for prophylactic vaccination and inoculation against influenza (V04.81), Nonsmoker, BMI 32.0- 32.9,adult, Coronary artery disease, non-occlusive, Left bundle branch block (Renamed from Block, bundle branch, left), Hypertension with heart disease, Encounter for screening for malignant neoplasm of prostate (Renamed from Screening for prostate cancer), Colon polyps, Encounter for screening for malignant neoplasm of colon (Renamed from Special screening for malignant neoplasms, colon) [facility] Office Visit On: 09-Nov-2015 7:07 Encounter Reason: Follow up for chronic medical issues - The patient feels well with no complaints, has good energy level and is sleeping well. Patient has been compliant with instructions. Current medication use: no marina End: 09-Nov-2015 7:39 e effects, compliant with dosing regimen and considered effective by patient. Patient sleeps 6 hours per night. Impact of disease: emotional impact-mild. Nutrition: balanced diet and supplemental vitami ns. The medical issues the patient is following up for include blood sugar issues, cardiac issues, high blood pressure, high cholesterol and other (protenuria ).Encounter Diagnosis: Type 2 diabetes mellitus without complication, History of tobacco abuse, Coronary artery disease, Left bundle branch block (Renamed from Block, bundle branch, left), Proteinuria (791.0), Benign essential HTN, Hypercholesteremia, Obesity, unspecified [facility] Office Visit On: 29-Jun-2015 7:55 Encounter Reason: Follow up acute care visit - The patient feeling better since last seen and improving. Patient has been compliant with instructions. Current medication use: no side effects, compliant with dosing regime End: 29-Jun-2015 8:37 n and considered effective by patient. Patient sleeps 7 hours per night. Impact of disease: emotional impact-mild. Nutrition: balanced diet and supplemental vitamins. The medical issues the patient is following up for include high blood pressure. Encounter Diagnosis: Benign essential HTN, History of tobacco abuse [facility] Office Visit On: 11-May-2015 7:09 Encounter Reason: Follow up for chronic medical issues - The patient feels well with minor complaints and has decreased energy level. Patient has been compliant with instructions. Current medication use: no side effects, End: 11-May-2015 15:30 compliant with dosing regimen and considered effective by patient. Patient sleeps 7 hours per night. Impact of disease: emotional impact-mild. Nutrition: balanced diet and supplemental vitamins. The me dical issues the patient is following up for include blood sugar issues, cardiac issues, high blood pressure and high cholesterol.Encounter Diagnosis: Type 2 diabetes mellitus without complication, History of tobacco abuse, Need for prophylactic vaccination and inoculation against influenza (V04.81), Benign essential hypertension (401.1), Left bundle branch block (Renamed from Block, bundle branch, left), Proteinuria (791.0), Hypercholesteremia, Coronary artery disease , Obesity, unspecified, Encounter for routine history and physical exam for male, Need for Tdap vaccination (Renamed from Need for aifgemkgee-yeemhmu-[id number] (Tdap) vaccine, adult/adolescent) [facility] Lab Order On: 02-May-2015 9:06 Encounter Diagnosis: Type 2 diabetes mellitus without complication End: 02-May-2015 9:09 [facility] Annotation/Addendum On: 10-Nov-2014 7:36 [facility] End: 10-Nov-2014 7:37 Office Visit On: 10-Nov-2014 6:58 Encounter Reason: Follow up for chronic medical issues - The patient feels well with no complaints, has good energy level and is sleeping well. Patient has been compliant with instructions. Current medication use: no marina End: 10-Nov-2014 7:24 e effects, compliant with dosing regimen and considered effective by patient. Patient sleeps 5 hours per night. Impact of disease: emotional impact-mild. Nutrition: balanced diet and supplemental vitami ns. The medical issues the patient is following up for include blood sugar issues, cardiac issues, high blood pressure and high cholesterol., [ADDITIONAL REASON] Follow up tests - Date: (10/31/14 blood work). Encounter Diagnosis: Diabetes type II,controlled no comp (250.00), Proteinuria (791.0), Left bundle branch block (Renamed from Block, bundle branch, left), Benign essential hypertension (401.1), Obesity,unspecified (278.00), Coronary artery disease (414.00), Hypercholesteremia (272.0), Well Male Exam (V70.0) [facility] Office Visit On: 12-May-2014 6:59 Encounter Reason: Follow up for chronic medical issues - The patient feels well with no complaints, has good energy level and is sleeping well. Patient has been compliant with instructions. Current medication use: no marina End: 12-May-2014 7:26 e effects, compliant with dosing regimen and considered effective by patient. Patient sleeps 5 hours per night. Impact of disease: emotional impact-mild. Nutrition: balanced diet and supplemental vitami ns. The medical issues the patient is following up for include blood sugar issues, cardiac issues, high blood pressure and high cholesterol.Encounter Diagnosis: Diabetes type II,controlled no comp (250.00), Hypercholesteremia (272.0), Benign essential hypertension (401.1), Left bundle branch block (Renamed from Block, bundle branch, left), Coronary artery disease (414.00), Obesity,unspecified (278.00), Proteinuria (791.0), Well Male Exam (V70.0), Need for prophylactic vaccination and inoculation against influenza (V04.81) [facility] Office Visit On: 10-Feb-2014 7:05 Encounter Reason: Follow up for chronic medical issues - The patient feels well with no complaints, has good energy level and is sleeping well. Patient has been compliant with instructions. Current medication use: no marina End: 10-Feb-2014 7:27 e effects, compliant with dosing regimen and considered effective by patient. Patient sleeps 5 hours per night. Impact of disease: emotional impact-mild. Nutrition: balanced diet and supplemental vitami ns. The medical issues the patient is following up for include blood sugar issues, cardiac issues, high blood pressure and high cholesterol.Encounter Diagnosis: Diabetes type II,controlled no comp (250.00), Coronary artery disease (414.00), Left bundle branch block (Renamed from Block, bundle branch, left), Benign essential hypertension (401.1), Hypercholesteremia (272.0), Obesity,unspecified (278.00), Proteinuria (791.0), Well Male Exam (V70.0) [facility] Office Visit On: 10-Nov-2013 7:35 Encounter Reason: Follow up for chronic medical issues - The patient feels well with minor complaints, has good energy level and is sleeping well. Patient has been compliant with instructions. Current medication use: no End: 10-Nov-2013 8:14 side effects, compliant with dosing regimen and considered effective by patient. Patient sleeps 5 hours per night. Impact of disease: emotional impact-mild. Nutrition: balanced diet and supplemental vit amins. The medical issues the patient is following up for include blood sugar issues, cardiac issues, high blood pressure, high cholesterol and other (proteinuria ).Encounter Diagnosis: Diabetes type II,controlled no comp (250.00), Hypercholesteremia (272.0), Benign essential hypertension (401.1), Other Abnormal Glucose, Pre-diabetes (790.29), Left bundle branch block (Renamed from Block, bundle branch, left), Coronary artery disease (414.00), Proteinuria (791.0), Obesity,unspecified (278.00) [facility] Office Visit On: 05-May-2013 7:08 Encounter Reason: Follow up for chronic medical issues - The patient feels well with no complaints, has good energy level and is sleeping well. Patient has been compliant with instructions. Current medication use: no marina End: 05-May-2013 7:42 e effects, compliant with dosing regimen and considered effective by patient. Patient sleeps 7 hours per night. Impact of disease: emotional impact-mild. Nutrition: balanced diet and supplemental vitami ns. The medical issues the patient is following up for include blood sugar issues, cardiac issues, high blood pressure and high cholesterol.Encounter Diagnosis: Other Abnormal Glucose, Pre-diabetes (790.29), Benign essential hypertension (401.1), Proteinuria (791.0), Coronary artery disease (414.00), Impaired fasting glucose (790.21), Hypercholesteremia (272.0), Left bundle branch block (Renamed from Block, bundle branch, left), Obesity,unspecified (278.00), Well Male Exam (V70.0) [facility] Phone Encounter On: 31-Mar-2013 12:19 [facility] End: 31-Mar-2013 12:20 Office Visit On: 03-Dec-2012 7:26 Encounter Reason: Follow up for chronic medical issues - The patient feels well with no complaints, has good energy level and is sleeping well. Patient has been compliant with instructions. Current medication use: no marina End: 03-Dec-2012 8:14 e effects, compliant with dosing regimen and considered effective by patient. Patient sleeps 7 hours per night. Impact of disease: emotional impact-mild. Nutrition: balanced diet and supplemental vitami ns. The medical issues the patient is following up for include blood sugar issues, cardiac issues, high blood pressure, high cholesterol and other (protenuria ).Encounter Diagnosis: Benign essential hypertension (401.1), Coronary artery disease (414.00), Other Abnormal Glucose, Pre-diabetes (790.29), Proteinuria (791.0), Hypercholesteremia (272.0), Obesity,unspecified (278.00), Left bundle branch block (426.3), Well Male Exam (V70.0) [facility] Refill Request On: 02-Sep-2012 14:33 Encounter Diagnosis: Hypercholesteremia (272.0) End: 02-Sep-2012 14:43 [facility] Phone Encounter On: 02-Sep-2012 12:27 Encounter Diagnosis: Unspecified Diagnosis End: 02-Sep-2012 12:34 [facility] Office Visit On: 05-Aug-2012 7:34 Encounter Reason: Follow up for chronic medical issues - The patient feels well with no complaints, has good energy level and is sleeping well. Patient has been compliant with instructions. Current medication use: no marina End: 05-Aug-2012 7:58 e effects, compliant with dosing regimen and considered effective by patient. Patient sleeps 7 hours per night. Impact of disease: emotional impact-mild. Nutrition: balanced diet and supplemental vitami ns. The medical issues the patient is following up for include blood sugar issues, cardiac issues, high blood pressure, high cholesterol and other (protenuria ).Encounter Diagnosis: Other Abnormal Glucose, Pre-diabetes (790.29), Coronary artery disease (414.00), Benign essential hypertension (401.1), Impaired fasting glucose (790.21), Hypercholesteremia (272.0), Obesity,unspecified (278.00), Proteinuria (791.0), Left bundle branch block (426.3) [facility] Office Visit On: 23-Apr-2012 6:42 Encounter Reason: Follow up tests - Date: (10.24.12)., [ADDITIONAL REASON] Follow up for chronic medical issues - The patient feels well with no complaints End: 23-Apr-2012 7:26 , has good energy level and is sleeping well. Patient has been compliant with instructions. Current medication use: no side effects, compliant with dosing regimen and considered effective by patient. Isaiah turner sleeps 7 hours per night. Impact of disease: emotional impact-mild. Nutrition: balanced diet and supplemental vitamins. The medical issues the patient is following up for include blood sugar issue s, cardiac issues, high blood pressure and high cholesterol. Encounter Diagnosis: Need for prophylactic vaccination and inoculation against influenza (V04.81), Benign essential hypertension (401.1), Trigger finger (727.03), Proteinuria (791.0), Limb pain (729.5), Other Abnormal Glucose, Pre-diabetes (790.29), Hypercholesteremia (272.0), Coronary artery disease (414.00), Left bundle branch block (426.3), Obesity,unspecified (278.00) [facility] Office Visit On: 16-Jan-2012 6:59 Encounter Reason: Follow up for chronic medical issues - The patient feels well with no complaints, has good energy level and is sleeping well. Patient has been compliant with instructions. Current medication use: no marina End: 16-Jan-2012 7:15 e effects, compliant with dosing regimen and considered effective by patient. Patient sleeps 7 hours per night. Impact of disease: emotional impact-mild. Nutrition: balanced diet and supplemental vitami ns. The medical issues the patient is following up for include blood sugar issues, cardiac issues, high blood pressure and high cholesterol.Encounter Diagnosis: Coronary artery disease (414.00), Other Abnormal Glucose, Pre-diabetes (790.29), Benign essential hypertension (401.1), Hypercholesteremia (272.0), Disorder, tobacco use (305.1) [facility] Office Visit On: 17-Oct-2011 7:32 Encounter Reason: Follow up for chronic medical issues - The patient feels well with no complaints, has good energy level and is sleeping well. Patient has been compliant with instructions. Current medication use: no marina End: 17-Oct-2011 8:06 e effects, compliant with dosing regimen and considered effective by patient. Patient sleeps 7 hours per night. Impact of disease: emotional impact-mild. Nutrition: balanced diet and supplemental vitami ns. The medical issues the patient is following up for include blood sugar issues, cardiac issues, high blood pressure, high cholesterol and other (tobacco use ).Encounter Diagnosis: Other Abnormal Glucose, Pre-diabetes (790.29), Hypercholesteremia (272.0), Coronary artery disease (414.00), Disorder, tobacco use (305.1), Benign essential hypertension (401.1), Limb pain (729.5) [facility] Office Visit On: 20-Jun-2011 7:20 Encounter Reason: Follow up for chronic medical issues - The patient feels well with no complaints, has good energy level and is sleeping well. Patient has been compliant with instructions. Current medication use: no marina End: 20-Jun-2011 7:54 e effects, compliant with dosing regimen and considered effective by patient. Patient sleeps 7 hours per night. Impact of disease: emotional impact-mild. Nutrition: balanced diet and supplemental vitami ns. The medical issues the patient is following up for include blood sugar issues, cardiac issues, high blood pressure, high cholesterol and other (tobacco use ).Encounter Diagnosis: Impaired fasting glucose (790.21), Benign essential hypertension (401.1), Coronary artery disease (414.00), Disorder, tobacco use (305.1), Hypercholesteremia (272.0) [facility] Office Visit On: 03-Apr-2011 7:47 Encounter Reason: Follow up tests - Date: (03.31.11)., [ADDITIONAL REASON] Follow up acute care visit - The patient feels the same. Patient has been compli End: 03-Apr-2011 8:05 ant with instructions. Current medication use: experiencing side effects (lisinopril makes me cough a lot..) and compliant with dosing regimen. Patient sleeps 7 hours per night. The medical issues the patient is following up for include other. Encounter Diagnosis: Need for prophylactic vaccination and inoculation against influenza (V04.81), Coronary artery disease (414.00), Benign essential hypertension (401.1), Hypercholesteremia (272.0), SOB (786.05), Disorder, tobacco use (305.1), Proteinuria (791.0) [facility] Office Visit On: 28-Feb-2011 7:31 Encounter Reason: Follow up tests - Diagnostic tests include other (labs ). Date: (02-18-11).Encounter Diagnosis: Disorder, tobacco use (305.1), Proteinuria (791.0), Hypercholesteremia (272.0), SOB (786.05), Impaired fasting glucose (790.21), End: 28-Feb-2011 16:19 Benign essential hypertension (401.1) [facility] Annotation/Addendum On: 19-Feb-2011 8:10 Encounter Diagnosis: Proteinuria (791.0) End: 19-Feb-2011 9:10 [facility] Office Visit On: 13-Feb-2011 7:59 Encounter Reason: new patient male physicial - Last seen more than 1 year ago. General health: feels well with minor complaints, has good energy level and is sleeping well. The patient's appetite is normal. Nutrition: no End: 13-Feb-2011 13:32 rmal/adequate. Exercises 0 days per week. Sleeps on average 7 hours per night. Normal bowel and bladder habits. Safety measures include appropriate use of safety belts and home smoke detectors. There ar e no current emotional problems. The patient's libido is normal.Encounter Diagnosis: Benign essential hypertension (401.1), Disorder, tobacco use (305.1), Trigger finger (727.03), Well Male Exam (V70.0) [facility] Payers Lisa Jeff; dyllan guarantor
--- OUTSIDE RECORDS SUMMARY | 2018-07-19 02:03 | XMS RPT_ITS | Continuity of Care Document ---
:1960 Author Organization [facility] Address [facility] [address] [place] [address] Phone Care Team Providers Name Role Phone Jessica Redmond DO Unavailable TimboArpitaon Unavailable Gravius, Mar Unavailable Unavailable Long CHEMICAL LIBRARIAN, Iris L Unavailable Unavailable Emick, [place] Unavailable Unavailable Unavailable Unavailable Problems Name Dates Details BMI 30.0-30.9,adult (Z68.30, V85.30) Status: Active BMI 30.0-30.9,adult (Z68.30, V85.30) Status: Active CKD (chronic kidney disease), stage III (N18.3, 585.3) Status: Active Colon polyps (K63.5, 211.3) Comments: hemocult 09/05 negative - last scope 2012-- due in 2018 Status: Active Coronary artery disease (I25.10, 414.00) Comments: xcath show 45% block in single artery -, stress good -14 Status: Active Coronary artery disease, non-occlusive (I25.10, [...] 0 days Quantity: 180 {Tablet} Refills: 0 Ordered:08-Mar-2018 Shelley Redmond DO, DO, Kathleen Start : 08-Mar-2018 Active Metoprolol Succinate ER 50 MG Oral [...] Quantity: 90 {Tablet} Refills: 0 Ordered:24-Mar-2018 Long CHEMICAL LIBRARIAN Iris L Start : 15-Mar-2018 End : [...] Quantity: 90 {Tablet} Refills: 1 Ordered:17-Feb-2018 Shelley Redmond DO, DO, Kathleen Start : 17-Feb-2018 End [...] for Tdap vaccination (Renamed from Need for ppjzgkavac-qldhmup-yqffmwzjm (Tdap) vaccine, adult/adolescent) (Z23, V06.1) Status: Inactive [...] 5 years Date Value Details 11-May-2015 EKG (46874) Result: [MEASUREMENTS ANALYSIS] Date of Test: 05/11/2015 07:26:19; Heart Rate: 67; UT Interval: 176; QRS: 140; QT Interval: 414; Corrected QT Interval (QTc): 426; P Wave [place]: 58; QRS Wave [place]: -45; T Wave Axi s: 70; Blood [...] Description Value Details :49 HgA1C , Office (48181) HgA1C , Office 6.1 % (Normal) Range: 4.6 - 7.1 :49 Blood Glucose , Office (14306) Blood Glucose , Office 135 (Normal) :49 HgA1C , Office (58033) HgA1C , Office 5.9 % (Normal) Range: 4.6 - 7.1 :49 Blood Glucose , Office (33099) Blood Glucose , Office 115 (Normal) :26 POTASSIUM SERUM (48210) Comments: PATIENT NOT FASTINGPERFORMED BY: Discourse [facility] [id number] Potassium 4.5 mmol/L (Normal) Range: 3.5-5.2 :52 Albumin/Creatinine Ratio,Urine Comments: PATIENT WAS FASTINGPERFORMED BY: [employer] Sciencelin6370 [facility] [id number] Alb/Creat Ratio 22.6 {mg/g_creat} (Normal) Range: 0.0-30.0 Albumin, Urine 12.8 ug/mL (Normal) Creatinine, Urine 56.6 mg/dL (Normal) :52 CBC With Differential/Platelet Comments: PATIENT WAS FASTINGPERFORMED BY: MarcoPolo LearningRaritan Bay Medical CenterBqverb7676 [facility] [id number] Information: CLIENT INTERNET DOWN Immature Grans (Abs) [...] 4.14-5.80 WBC 7.8 {x10E3/uL} (Normal) Range: 3.4-10.8 60-Ark-348890:52 Comp. Metabolic Panel (14) Comments: PATIENT WAS FASTINGPERFORMED BY: LabCoRaritan Bay Medical CenterFhpkmu8364 [facility] [id number] ALT (SGPT) 29 [iU]/L (Normal) Range: 0-44 [...] 6-24 Glucose 110 mg/dL (Abnormal) Range: 65-99 52-Oxl-065271:52 Lipid Panel With LDL/HDL Comments: PATIENT WAS FASTINGPERFORMED BY: [facility] [id number] Ratio LDL/HDL Ratio 1.4 {ratio} (Normal) Range: [...] Cholesterol, Total 105 mg/dL (Normal) Range: 100-199 15-Pdp-859518:52 Microscopic Examination Comments: PATIENT WAS FASTINGPERFORMED BY: [facility]ant[facility]arte[facility] [id number] Bacteria Few (Normal) Mucus Threads Present (Normal) Epithelial Cells (non None seen {/hpf} Range: 0 - 10 renal) (Normal) RBC None seen {/hpf} Range: 0 - 2 (Normal) WBC 0-5 {/hpf} (Normal) Range: 0 - 5 TSH 2.030 {uIU/mL} Comments: PATIENT WAS FASTINGPERFORMED BY: [facility]liantCarte[facility] Care [id number] 3:52 (Normal) Range: 0.450-4.500 09-Bgz-699107:52 Urinalysis, Complete Comments: PATIENT WAS FASTINGPERFORMED BY: [facility]6370 [facility] [id number] Microscopic Examination See below: (Normal) Comments: Microscopic was indicated and was performed. Microscopic Examination MICRON (Normal) Comments: Microscopic follows if indicated. Nitrite, Urine Negative (Normal) Urobilinogen,Semi-Qn 0.2 mg/dL (Normal) Range: 0.2-1.0 Bilirubin Negative (Normal) Occult Blood Negative (Normal) Ketones Negative (Normal) Glucose Negative (Normal) Protein Negative (Normal) WBC Esterase Negative (Normal) Appearance Clear (Normal) Urine-Color Yellow (Normal) pH 5.5 (Normal) Range: 5.0-7.5 Specific [place] 1.014 (Normal) Range: 1.005-1.030 Vitamin D, 25-Hydroxy 71.0 ng/mL (Normal) Comments: PATIENT WAS FASTINGPERFORMED BY: [facility]6370 [facility] [id number] 3:52 Range: 30.0-100.0 Comments: Vitamin D deficiency has been defined by the [place] ofMedicine and an Endocrine Society practice guideline as alevel of serum 25-OH vitamin D less than 20 ng/mL (1,2).The Endocrine Society went on to further define vitamin Dinsufficiency as a level between 21 and 29 ng/mL (2).1. IOM ([place] of Medicine). 2010. Dietary reference intakes for calcium and D. [place]: The National Academies Press.2. Loki MF, Diane NC, Jessie CARTER, et al. Evaluation, treatment, and prevention of vitamin D deficiency: an Endocrine Society clinical practice guideline. JCEM. 2010; 96(7):1911-30. 92-Ilu-58014:21 MARNIE (ANTINUCLEAR ANTIBODY) Comments: PATIENT NOT FASTINGPERFORMED BY: [facility]6370 [facility] [id number] (33004) MARNIE Direct Negative (Normal) 89-Apj-711960:14 Metabolic Panel, Basic Comments: PATIENT NOT FASTINGPERFORMED BY: [employer] [facility] Dtuenh5504 [facility] [id number] (94038) Calcium 9.9 mg/dL (Normal) Range: 8.7-10.2 Carbon [...] (Abnormal) Range: 65-99 :14 HgA1C , Office (80398) HgA1C , Office 6.0 % (Normal) Range: 4.6 - 7.1 :14 Blood Glucose , Office (29558) Blood Glucose , Office 128 (Normal) 24-Gsf-75730:10 Microscopic Examination Comments: PATIENT WAS FASTINGPERFORMED BY: [employer] [facility] Lmslsx6369 [facility] [id number] Bacteria None seen (Normal) Mucus Threads Present (Normal) Epithelial Cells (non renal) None seen {/hpf} (Normal) Range: 0 - 10 RBC 0-2 {/hpf} (Normal) Range: 0 - 2 WBC 0-5 {/hpf} (Normal) Range: 0 - 5 05-Nky-68347:10 CALCIFEDIOL (66953) Comments: PATIENT WAS FASTINGPERFORMED BY: [employer] [facility] Mxkwey4128 [facility] [id number] Vitamin D, 25-Hydroxy 48.4 ng/mL (Normal) Range: 30.0-100.0 Comments: Vitamin D deficiency has been defined by the [place] ofMedicine and an Endocrine Society practice guideline as alevel of serum 25-OH vitamin D less than 20 ng/mL (1,2).The Endocrine Society went on to further define vitamin Dinsufficiency as a level between 21 and 29 ng/mL (2).1. IOM ([place] of Medicine). 2010. Dietary reference intakes for calcium and D. [place]: The National Academies Press.2. Loki MF, Diane WHEELER, Jessie CARTER, et al. Evaluation, treatment, and prevention of vitamin D deficiency: an Endocrine Society clinical practice guideline. JCEM. 2010; 96(7):1911-30. 66-Gir-94502:10 LIPID PANEL (44153) Comments: PATIENT WAS FASTINGPERFORMED BY: [employer]70 [facility] [id number] LDL/HDL Ratio 1.8 {ratio} (Normal) Range: 0.0-3.6 [...] Cholesterol, Total 156 mg/dL (Normal) Range: 100-199 33-Xqt-11184:10 TSH (22485) Comments: PATIENT WAS FASTINGPERFORMED BY: [employer]6370 [facility]emicC[facility] [id number] TSH 3.530 {uIU/mL} (Normal) Range: 0.450-4.500 49-Wcm-14311:10 URINALYSIS, W/ MICRO (09978) Comments: PATIENT WAS FASTINGPERFORMED BY: [employer]70 [facility] [id number] Microscopic Examination See below: (Normal) Comments: Microscopic was indicated and was performed. Microscopic Examination MICRON (Normal) Comments: Microscopic follows if indicated. Nitrite, Urine Negative (Normal) Urobilinogen,Semi-Qn 0.2 mg/dL (Normal) Range: 0.2-1.0 Bilirubin Negative (Normal) Occult Blood Negative (Normal) Ketones Negative (Normal) Glucose Negative (Normal) Protein Negative (Normal) WBC Esterase Negative (Normal) Appearance Clear (Normal) Urine-Color Yellow (Normal) pH 5.5 (Normal) Range: 5.0-7.5 Specific [place] 1.013 (Normal) Range: 1.005-1.030 97-Ray-81645:10 MICROALBUMIN: CREATININE RATIO Comments: PATIENT WAS FASTINGPERFORMED BY: [employer] Qesjmf3371 [facility] [id number] (75995) AND (63660) Alb/Creat Ratio 28.7 {mg/g_creat} (Normal) Range: 0.0-30.0 Albumin, Urine 20.3 ug/mL (Normal) Creatinine, Urine 70.7 mg/dL (Normal) :10 METABOLIC PANEL, COMPREHENSIVE Comments: PATIENT WAS FASTINGPERFORMED BY: [employer]6370 [facility] CenterGC-Rise PharmaceuticalCarteret Health Care [id number] (62594) ALT (SGPT) 42 [iU]/L (Normal) Range: 0-44 [...] Range: 65-99 :10 CBC W/AUTO DIFF WBC (46718) Comments: PATIENT WAS FASTINGPERFORMED BY: [facility]Co Uchbrn1028 [facility] [id number]; ov 6/6 Immature Grans (Abs) 0.0 {x10E3/uL} [...] (Normal) Range: 3.4-10.8 :00 HgA1C , Office (87184) HgA1C , Office 5.8 % (Normal) Range: 4.6 - 7.1 35-Ixo-98661:00 Blood Glucose , Office (06680) Blood Glucose , Office 125 (Normal) :17 Metabolic Panel, Basic (03922) Comments: do in 1-2 weeks; PATIENT NOT FASTINGPERFORMED BY: [employer] [facility] Mfskza4263 [facility] [id number] Calcium, Serum 9.9 mg/dL (Normal) Range: 8.7-10.2 [...] Comments: 3mon do; PATIENT WAS FASTINGPERFORMED BY: [employer]70 [facility] [id number] (04168) ALT (SGPT) 29 [iU]/L (Normal) Range: 0-44 AST (SGOT) 23 [iU]/L (Normal) Range: 0-40 Alkaline Phosphatase, S 57 [iU]/L (Normal) Range: 39-117 Bilirubin, Direct 0.15 mg/dL (Normal) Range: 0.00-0.40 Bilirubin, Total 0.6 mg/dL (Normal) Range: 0.0-1.2 Albumin, Serum 4.6 g/dL (Normal) Range: 3.5-5.5 Protein, Total, Serum 6.9 g/dL (Normal) Range: 6.0-8.5 :36 LIPID PANEL (64613) Comments: do in 3mon; PATIENT WAS FASTINGPERFORMED BY: Discourse [facility] [id number] LDL/HDL Ratio 1.8 {ratio_units} (Normal) Range: 0.0-3.6 [...] (Normal) Range: 100-199 :01 HgA1C , Office (27614) HgA1C , Office 5.9 % (Normal) Range: 4.6 - 7.1 :01 Blood Glucose , Office (99394) Blood Glucose , Office 130 (Normal) :18 TSH (98041) Comments: PATIENT WAS FASTINGPERFORMED BY: [facility] Xchhwk1079 [facility] [id number] TSH 1.920 {uIU/mL} (Normal) Range: 0.450-4.500 :18 METABOLIC PANEL, COMPREHENSIVE Comments: PATIENT WAS FASTINGPERFORMED BY: [facility] Jnzxsj1172 [facility] [id number] (31215) ALT (SGPT) 27 [iU]/L (Normal) Range: 0-44 [...] mg/dL (Abnormal) Range: 65-99 :18 LIPID PANEL (89940) Comments: PATIENT WAS FASTINGPERFORMED BY: [employer]70 [facility]emicC[facility] [id number] LDL/HDL Ratio 2.0 {ratio_units} (Normal) Range: 0.0-3.6 [...] Range: 100-199 :18 CBC W/AUTO DIFF WBC (26142) Comments: PATIENT WAS FASTINGPERFORMED BY: [employer]6370 [facility]emic[facility] [id number] Immature Grans (Abs) 0.0 {x10E3/uL} (Normal) Range: [...] (Normal) Range: 3.4-10.8 :49 HgA1C , Office (43699) HgA1C , Office 5.9 % (Normal) Range: 4.6 - 7.1 :49 Blood Glucose , Office (22034) Blood Glucose , Office 133 (Normal) HDL Cholesterol 34 mg/dL (Abnormal) Comments: PATIENT WAS FASTINGPERFORMED BY: [facility]6370 [facility] [id number] 0:18 Vitamin D, 25-Hydroxy 46.2 ng/mL (Normal) Comments: PATIENT WAS FASTINGPERFORMED BY: [facility]6370 [facility] [id number] 0:18 Range: 30.0-100.0 Comments: Vitamin D deficiency has been defined by the [place] ofMedicine and an Endocrine Society practice guideline as alevel of serum 25-OH vitamin D less than 20 ng/mL (1,2).The Endocrine Society went on to further define vitamin Dinsufficiency as a level between 21 and 29 ng/mL (2).1. IOM ([place] of Medicine). 2010. Dietary reference intakes for calcium and D. [place]: The National Qui.lt Press.2. Loki MF, Diane WHEELER, Jessie CARTER, et al. Evaluation, treatment, and prevention of vitamin D deficiency: an Endocrine Society clinical practice guideline. JCEM. 2010; 96(7):1911-30. :14 HgA1C , Office (84789) HgA1C , Office 6.1 % (Normal) Range: 4.6 - 7.1 :14 Blood Glucose , Office (41686) Blood Glucose , Office 111 (Normal) 37-Bqs-250268:23 Microscopic Examination Comments: PATIENT WAS FASTINGPERFORMED BY: [employer] [facility] Xoxorz8479 [facility] [id number] Bacteria Few (Normal) Mucus Threads Present (Normal) Cast Type Hyaline casts (Normal) Casts Present {/lpf} (Abnormal) Epithelial Cells (non renal) None seen {/hpf} (Normal) Range: 0 - 10 RBC 0-2 {/hpf} (Normal) Range: 0 - 2 WBC 0-5 {/hpf} (Normal) Range: 0 - 5 :49 Fecal Occult Blood , Office (69379) Fecal Occult Blood , Office (Inhouse) negative (Normal) :23 CALCIFIDIOL (26179) VIT D 25 Comments: PATIENT WAS FASTINGPERFORMED BY: [facility] Tcberx7892 [facility] [id number] Vitamin D, 25-Hydroxy 10.5 ng/mL (Abnormal) Range: 30.0-100.0 Comments: Vitamin D deficiency has been defined by the [place] ofMedicine and an Endocrine Society practice guideline as alevel of serum 25-OH vitamin D less than 20 ng/mL (1,2).The Endocrine Society went on to further define vitamin Dinsufficiency as a level between 21 and 29 ng/mL (2).1. IOM ([place] of Medicine). 2010. Dietary reference intakes for calcium and D. [place]: The National Qui.lt Press.2. Loki MF, Diane NC, Jessie CARTER, et al. Evaluation, treatment, and prevention of vitamin D deficiency: an Endocrine Society clinical practice guideline. JCEM. 2010; 96(7):1911-30. :23 TSH (68468) Comments: PATIENT WAS FASTINGPERFORMED BY: [employer] [facility] MeetCutein [place] [id number] TSH 2.340 {uIU/mL} (Normal) Range: 0.450-4.500 85-Phq-444772:23 URINALYSIS, W/ MICRO (47380) Comments: PATIENT WAS FASTINGPERFORMED BY: [employer] MeetCuteCarteret Health Care [id number] Microscopic Examination See below: (Normal) Comments: Microscopic was indicated and was performed. Microscopic Examination MICRON (Normal) Comments: Microscopic follows if indicated. Nitrite, Urine Negative (Normal) Urobilinogen,Semi-Qn 0.2 mg/dL (Normal) Range: 0.2-1.0 Bilirubin Negative (Normal) Occult Blood Negative (Normal) Ketones Negative (Normal) Glucose Negative (Normal) Protein Trace (Normal) WBC Esterase Negative (Normal) Appearance Clear (Normal) Urine-Color Yellow (Normal) pH 5.5 (Normal) Range: 5.0-7.5 Specific [place] 1.025 (Normal) Range: 1.005-1.030 :23 MICROALBUMIN: CREATININE RATIO Comments: PATIENT WAS FASTINGPERFORMED BY: [employer] MeetCuteCarteret Health Care [id number] (11964) AND (94387) Microalb/Creat Ratio 26.8 {mg/g_creat} (Normal) Range: 0.0-30.0 Microalbumin, Urine 56.0 ug/mL (Normal) Creatinine, Urine 209.1 mg/dL (Normal) :23 METABOLIC PANEL, COMPREHENSIVE Comments: PATIENT WAS FASTINGPERFORMED BY: [employer]70 [facility]emicC[facility] [id number] (85589) ALT (SGPT) 25 [iU]/L (Normal) Range: 0-44 [...] Glucose, Serum 119 mg/dL (Abnormal) Range: 65-99 65-Tmv-738137:23 LIPID PANEL (34394) Comments: PATIENT WAS FASTINGPERFORMED BY: LabCoRaritan Bay Medical CenterOxtzae7269 [facility] [id number] LDL/HDL Ratio 2.0 {ratio_units} (Normal) Range: 0.0-3.6 [...] Range: 100-199 :23 CBC with auto diff (93272) Comments: PATIENT WAS FASTINGPERFORMED BY: [employer] [facility] Evzkeo1006 [facility] [id number] Immature Grans (Abs) 0.0 {x10E3/uL} (Normal) Range: [...] 4.14-5.80 WBC 8.5 {x10E3/uL} (Normal) Range: 3.4-10.8 78-Bif-407549:23 PSA (PROSTATE SPECIFIC Comments: PATIENT WAS FASTINGPERFORMED BY: LabCoSanta Ana Health CenterTangwi9597 [facility] [id number] ANTIGEN) (V76.44) Prostate Specific Ag, 1.3 ng/mL (Normal) Range: 0.0-4.0 Serum Comments: Quinton ECLIA methodology. .According to the [place] Urological Association, Serum PSA shoulddecrease and remain [...] of malignant disease. :54 HgA1C , Office (11231) HgA1C , Office 6.2 % (Normal) Range: 4.6 - 7.1 :54 Blood Glucose , Office (60126) Blood Glucose , Office 111 (Normal) 63-Kce-791246:11 MICROALBUMIN: CREATININE RATIO Comments: PATIENT WAS FASTINGPERFORMED BY: [employer]6370 [facility]emic[facility] [id number] (13272) AND (20666) Microalb/Creat Ratio 17.8 {mg/g_creat} (Normal) Range: 0.0-30.0 Microalbumin, Urine 12.0 ug/mL (Normal) Creatinine, Urine 67.6 mg/dL (Normal) 08-Dcr-560626:11 METABOLIC PANEL, COMPREHENSIVE Comments: PATIENT WAS FASTINGPERFORMED BY: [employer]6370 [facility] [id number] (86814) ALT (SGPT) 25 [iU]/L (Normal) Range: 0-44 [...] Glucose, Serum 103 mg/dL (Abnormal) Range: 65-99 56-Eow-594574:11 LIPID PANEL (93609) Comments: PATIENT WAS FASTINGPERFORMED BY: RuffaloCODY [facility] [id number] LDL/HDL Ratio 2.6 {ratio_units} (Normal) Range: 0.0-3.6 Comments: LDL/HDL Ratio Men Women 1/2 Avg.Risk 1.0 1.5 Av g.Risk 3.6 3.2 2X Avg.Risk 6.2 5.0 3X Avg.Risk 8.0 6.1 LDL Cholesterol Calc 88 mg/dL (Normal) Range: 0-99 VLDL Cholesterol Jose D Ejesus 44 mg/dL (Abnormal) Range: 5-40 HDL Cholesterol 34 mg/dL (Abnormal) Comments: According to ATP-III Guidelines, HDL-C >59 mg/dL is considered anegative risk factor for CHD. Triglycerides 221 mg/dL (Abnormal) Range: 0-149 Cholesterol, Total 166 mg/dL (Normal) Range: 100-199 07-Lcs-105311:11 CBC with auto diff (43646) Comments: PATIENT WAS FASTINGPERFORMED BY: Discourse [facility] [id number]; fu 05-12-[address] Redmond Immature Grans [...] (Normal) Range: 3.4-10.8 :09 HgA1C , Office (80973) HgA1C , Office 6.2 % (Normal) Range: 4.6 - 7.1 :03 Metabolic Panel, Basic Comments: 4-6 weeks; PATIENT NOT FASTINGPERFORMED BY: LabCoRaritan Bay Medical CenterKqootd9165 [facility] [id number] Information: [id number]; apt. 06-29-15 (02762) Calcium, Serum 9.7 mg/dL (Normal) Range: 8.7-10.2 [...] (Abnormal) Range: 65-99 :10 HgA1C , Office (11641) HgA1C , Office 6.2 % (Normal) Range: 4.6 - 7.1 :13 MICROALBUMIN: CREATININE RATIO Comments: PATIENT WAS FASTINGPERFORMED BY: American HealthNetRaritan Bay Medical CenterHbhguu2492 [facility] [id number] (23743) AND (59251) Microalb/Creat Ratio 63.8 {mg/g_creat} (Abnormal) Range: 0.0-30.0 Microalbumin, Urine 62.1 ug/mL (Abnormal) Range: 0.0-17.0 Creatinine, Urine 97.3 mg/dL (Normal) Range: 22.0-328.0 :13 METABOLIC PANEL, COMPREHENSIVE Comments: PATIENT WAS FASTINGPERFORMED BY: American HealthNetRaritan Bay Medical CenterJqzqbu7735 [facility] [id number] (47199) ALT (SGPT) 32 [iU]/L (Normal) Range: 0-44 [...] mg/dL (Abnormal) Range: 65-99 :13 LIPID PANEL (53100) Comments: PATIENT WAS FASTINGPERFORMED BY: [facility]liantCarteret Health Care [id number] LDL/HDL Ratio 2.6 {ratio_units} (Normal) Range: 0.0-3.6 [...] auto diff Comments: PATIENT WAS FASTINGPERFORMED BY: Discourse [facility] [id number] Information: [id number] (05118) Immature Grans (Abs) 0.0 {x10E3/uL} (Normal) Range: [...] (PROSTATE SPECIFIC Comments: PATIENT WAS FASTINGPERFORMED BY: [facility] Wdnjbt9123 [facility] [id number]; apt. 05-11-15 ANTIGEN) (V76.44) Prostate Specific Ag, 0.7 ng/mL (Normal) Range: 0.0-4.0 Serum Comments: Quinton ECLIA methodology. .According to the [place] Urological Association, Serum PSA shoulddecrease and remain [...] of malignant disease. :00 HgA1C , Office (28335) HgA1C , Office 6.3 % (Normal) Range: 4.6 - 7.1 :00 Blood Glucose , Office (31512) Blood Glucose , Office 143 (Normal) :16 CBC With Differential/Platelet Comments: PATIENT WAS FASTINGPERFORMED BY: [facility] Ovxqtu4226 [facility] [id number] Information: [id number] Immature Grans (Abs) 0.0 {x10E3/uL} (Normal) Range: [...] Panel (14) Comments: PATIENT WAS FASTINGPERFORMED BY: [employer] Yuwcgo8948 [facility] [id number] ALT (SGPT) 29 [iU]/L (Normal) Range: 0-44 [...] With LDL/HDL Comments: PATIENT WAS FASTINGPERFORMED BY: [employer] [facility] Nwzysy4919 [facility] [id number] Ratio LDL/HDL Ratio 2.7 {ratio_units} (Normal) Range: [...] Randm Ur Comments: PATIENT WAS FASTINGPERFORMED BY: RuffaloCODY Va Medical CenterGC-Rise PharmaceuticalCarteret Health Care [id number] Microalb/Creat Ratio 91.1 {mg/g_creat} (Abnormal) Range: 0.0-30.0 Microalbumin, Urine 67.5 ug/mL (Abnormal) Range: 0.0-17.0 Creatinine, Urine 74.1 mg/dL (Normal) Range: 22.0-328.0 :02 HgA1C , Office (48172) HgA1C , Office 6.1 % (Normal) Range: 4.6 - 7.1 :02 Blood Glucose , Office (91434) Blood Glucose , Office 142 (Normal) :47 PSA (PROSTATE SPECIFIC Comments: PATIENT WAS FASTINGPERFORMED BY: RuffaloCODY [facility] [id number] ANTIGEN) (V76.44) Prostate Specific Ag, 0.7 ng/mL (Normal) Range: 0.0-4.0 Serum Comments: Rowl ECLIA methodology. .According to the [place] Urological Association, Serum PSA shoulddecrease and remain [...] CREATININE RATIO Comments: PATIENT WAS FASTINGPERFORMED BY: TissueInformaticsSpringfield [place] [id number] (08592) AND (46609) Microalb/Creat Ratio 85.1 {mg/g_creat} (Abnormal) Range: 0.0-30.0 Microalbumin, Urine 102.0 ug/mL (Abnormal) Range: 0.0-17.0 Creatinine, Urine 119.8 mg/dL (Normal) Range: 22.0-328.0 :47 METABOLIC PANEL, COMPREHENSIVE Comments: PATIENT WAS FASTINGPERFORMED BY: [facility] Wlsdww2145 [facility] [id number] (55583) ALT (SGPT) 29 [iU]/L (Normal) Range: 0-44 [...] mg/dL (Abnormal) Range: 65-99 :47 LIPID PANEL (32495) Comments: PATIENT WAS FASTINGPERFORMED BY: American HealthNetRaritan Bay Medical CenterTyyukb5606 [facility] [id number] LDL/HDL Ratio 2.2 {ratio_units} (Normal) Range: 0.0-3.6 [...] DIFF WBC Comments: PATIENT WAS FASTINGPERFORMED BY: American HealthNetRaritan Bay Medical CenterHlmubq1111 [facility] [id number] Information: [id number] (19660) Immature Grans (Abs) 0.0 {x10E3/uL} (Normal) Range: [...] (Normal) Range: 3.4-10.8 :08 HgA1C , Office (87022) HgA1C , Office 6.2 % (Normal) Range: 4.6 - 7.1 :08 Blood Glucose , Office (10004) Blood Glucose , Office 138 (Normal) :39 Blood Glucose , Office (33438) Blood Glucose , Office 141 (Normal) :39 HgA1C , Office (57445) HgA1C , Office 6.5 % (Normal) Range: 4.6 - 7.1 :42 METABOLIC PANEL, Comments: PATIENT WAS FASTINGPERFORMED BY: LabCoRaritan Bay Medical CenterCaolio7109 [facility] [id number] Information: [id number] COMPREHENSIVE (08324) ALT (SGPT) 46 [iU]/L (Abnormal) Range: 0-44 [...] Glucose, Serum 117 mg/dL (Abnormal) Range: 65-99 60-Bld-377456:42 LIPID PANEL (90785) Comments: PATIENT WAS FASTINGPERFORMED BY: [employer]6370 [facility] [id number] LDL/HDL Ratio 3.4 {ratio_units} (Normal) Range: 0.0-3.6 LDL Cholesterol Calc 108 mg/dL (Abnormal) Range: 0-99 VLDL Cholesterol Jose De Jesus 37 mg/dL (Normal) Range: 5-40 HDL Cholesterol 32 mg/dL (Abnormal) Comments: According to ATP-III Guidelines, HDL-C >59 mg/dL is considered anegative risk factor for CHD. Cholesterol, Total 177 mg/dL (Normal) Range: 100-199 Triglycerides 186 mg/dL (Abnormal) Range: 0-149 76-Kbq-072466:42 MICROALBUMIN: CREATININE RATIO Comments: PATIENT WAS FASTINGPERFORMED BY: [employer] Cxsrsq8569 [facility] [id number] (27362) AND (34260) Microalb/Creat Ratio 59.4 {mg/g_creat} (Abnormal) Range: 0.0-30.0 Microalbumin, Urine 101.5 ug/mL (Abnormal) Range: 0.0-17.0 Creatinine, Urine 170.9 mg/dL (Normal) Range: 22.0-328.0 :13 Blood Glucose , Office (60418) Blood Glucose , Office 110 (Normal) :13 HgA1C , Office (26696) HgA1C , Office 6.2 % (Normal) Range: 4.6 - 7.1 :21 METABOLIC PANEL, COMPREHENSIVE Comments: PATIENT WAS FASTINGPERFORMED BY: [employer]70 [facility] [id number] (10479) ALT (SGPT) 37 [iU]/L (Normal) Range: 0-44 [...] mg/dL (Abnormal) Range: 65-99 :21 LIPID PANEL (53715) Comments: PATIENT WAS FASTINGPERFORMED BY: [employer]6370 [facility] [id number] LDL/HDL Ratio 2.6 {ratio_units} (Normal) Range: 0.0-3.6 [...] Comments: PATIENT WAS FASTINGPERFORMED BY: [facility]6370 [facility] [id number] Information: [id number] (43549) Immature Grans (Abs) 0.0 {x10E3/uL} (Normal) Range: [...] (PROSTATE SPECIFIC Comments: PATIENT WAS FASTINGPERFORMED BY: [facility]6370 [facility] [id number] ANTIGEN) (V76.44) Prostate Specific Ag, 0.6 ng/mL (Normal) Range: 0.0-4.0 Serum Comments: Quinton ECLIA methodology. .According to the [employer], Serum PSA shoulddecrease and remain [...] of malignant disease. :27 HgA1C , Office (46141) HgA1C , Office 6.0 % (Normal) Range: 4.6 - 7.1 :27 Blood Glucose , Office (81870) Blood Glucose , Office 114 (Normal) Comments: fasting :21 MICROALBUMIN: CREATININE RATIO Comments: PATIENT WAS FASTINGPERFORMED BY: [facility] HealthNetRar[facility] Medical CenterOnumod2770 [facility] [id number] (90140) AND (82713) Microalb/Creat Ratio 60.1 {mg/g_creat} (Abnormal) Range: 0.0-30.0 Creatinine, Urine 111.1 mg/dL (Normal) Range: 22.0-328.0 Microalbumin, Urine 66.8 ug/mL (Abnormal) Range: 0.0-17.0 :21 METABOLIC PANEL, COMPREHENSIVE Comments: PATIENT WAS FASTINGPERFORMED BY: [facility]6370 [facility] [id number] (26001) ALT (SGPT) 26 [iU]/L (Normal) Range: 0-44 [...] mg/dL (Abnormal) Range: 65-99 26-Nov-20127:21 LIPID PANEL (83113) Comments: PATIENT WAS FASTINGPERFORMED BY: [facility] Drfwkv1125 [facility] [id number] LDL/HDL Ratio 4.6 {ratio_units} (Abnormal) Range: 0.0-3.6 [...] Comments: PATIENT WAS FASTINGPERFORMED BY: [facility]6370 [facility] [id number] Information: [id number] (46898) Immature Grans (Abs) 0.0 {x10E3/uL} (Normal) Range: [...] (Normal) Range: 4.0-10.5 :38 HgA1C , Office (15877) HgA1C , Office 6.2 % (Normal) Range: 4.6 - 7.1 :38 Blood Glucose , Office (15665) Blood Glucose , Office 117 (Normal) :31 LIPID PANEL (53934) Comments: PATIENT WAS FASTINGPERFORMED BY: [facility]NetR[facility] CenterAndjlc1766 [facility] [id number] LDL/HDL Ratio 2.6 {ratio_units} (Normal) Range: 0.0-3.6 [...] FUNCTION PANEL Comments: PATIENT WAS FASTINGPERFORMED BY: [facility] HealthNetRar[facility] Medical CenterMtyxhd3962 [facility] [id number] Information: [id number] (69742) ALT (SGPT) 37 [iU]/L (Normal) Range: 0-44 AST (SGOT) 33 [iU]/L (Normal) Range: 0-40 Alkaline Phosphatase, S 99 [iU]/L (Normal) Range: 25-150 Bilirubin, Direct 0.21 mg/dL (Normal) Range: 0.00-0.40 Bilirubin, Total 0.8 mg/dL (Normal) Range: 0.0-1.2 Albumin, Serum 4.5 g/dL (Normal) Range: 3.5-5.5 Protein, Total, Serum 7.0 g/dL (Normal) Range: 6.0-8.5 :43 HgA1C , Office (92083) HgA1C , Office 6.4 % (Normal) Range: 4.6 - 7.1 :43 Blood Glucose , Office (21991) Blood Glucose , Office 111 (Normal) Comments: fasting 56-Rku-14125:19 Microscopic Examination Comments: PATIENT WAS FASTINGPERFORMED BY: [facility]NetR[facility] CenterZlqipk2520 [facility] [id number] Bacteria None seen (Normal) Mucus Threads Present (Normal) Epithelial Cells (non renal) 0-10 {/hpf} (Normal) Range: 0 - 10 RBC 0-3 {/hpf} (Normal) Range: 0 - 3 WBC 0-5 {/hpf} (Normal) Range: 0 - 5 42-Mzi-81445:19 URINALYSIS, W/ MICRO (28488) Comments: PATIENT WAS FASTINGPERFORMED BY: [facility]vySouth[facility] HospitalKpbvsx1094 [facility] [id number] Microscopic Examination See below: (Normal) Nitrite, Urine Negative (Normal) Urobilinogen,Semi-Qn 0.2 mg/dL (Normal) Range: 0.0-1.9 Bilirubin Negative (Normal) Occult Blood Negative (Normal) Ketones Negative (Normal) Glucose Negative (Normal) Protein 1+ (Abnormal) WBC Esterase Negative (Normal) Appearance Clear (Normal) pH 6.0 (Normal) Range: 5.0-7.5 Urine-Color Yellow (Normal) Specific [place] 1.024 (Normal) Range: 1.005-1.030 :19 MICROALBUMIN: CREATININE RATIO Comments: PATIENT WAS FASTINGPERFORMED BY: [facility]6370 [facility] [id number] (96424) AND (53531) Creatinine, Urine 283.0 mg/dL (Normal) Range: 22.0-328.0 Microalb/Creat Ratio 68.6 {mg/g_creat} (Abnormal) Range: 0.0-30.0 Microalbumin, Urine 194.0 ug/mL (Abnormal) Range: 0.0-17.0 :19 METABOLIC PANEL, COMPREHENSIVE Comments: PATIENT WAS FASTINGPERFORMED BY: [facility]6370 [facility] [id number] (16125) ALT (SGPT) 43 [iU]/L (Normal) Range: 0-55 [...] Glucose, Serum 113 mg/dL (Abnormal) Range: 65-99 05-Mjo-96212:19 LIPID PANEL (40936) Comments: PATIENT WAS FASTINGPERFORMED BY: LabCoRaritan Bay Medical CenterBkpxjl7573 [facility] [id number] LDL/HDL Ratio 3.8 {ratio_units} (Abnormal) Range: 0.0-3.6 [...] MANUAL DIFF Comments: PATIENT WAS FASTINGPERFORMED BY: LabCoRaritan Bay Medical CenterOypwhd6894 [facility] [id number] Information: [id number] (83285) Immature Grans (Abs) 0.0 {x10E3/uL} (Normal) Range: [...] (Normal) Range: 4.0-10.5 :00 HgA1C , Office (33237) HgA1C , Office 6.1 % (Normal) Range: 4.6 - 7.1 :00 Blood Glucose , Office (86286) Blood Glucose , Office 134 (Normal) :35 HgA1C , Office (13782) HgA1C , Office 6.4 % (Normal) Range: 4.6 - 7.1 :35 Blood Glucose , Office (76935) Blood Glucose , Office 129 (Normal) :00 Comp. Metabolic Panel (14) Comments: PATIENT WAS FASTINGPERFORMED BY: LabCoRaritan Bay Medical CenterRdhfsk1524 [facility] [id number] ALT (SGPT) 44 [iU]/L (Normal) Range: 0-55 [...] With LDL/HDL Comments: PATIENT WAS FASTINGPERFORMED BY: [facility]6370 [facility] [id number] Ratio LDL/HDL Ratio 3.3 {ratio_units} (Normal) Range: 0.0-3.6 LDL Cholesterol Calc 109 mg/dL (Abnormal) Range: 0-99 VLDL Cholesterol Jose De Jesus 40 mg/dL (Normal) Range: 5-40 HDL Cholesterol 33 mg/dL (Abnormal) Comments: According to ATP-III Guidelines, HDL-C >59 mg/dL is considered anegative risk factor for CHD. Triglycerides 200 mg/dL (Abnormal) Range: 0-149 Cholesterol, Total 182 mg/dL (Normal) Range: 100-199 :24 HgA1C , Office (19199) HgA1C , Office 6.1 % (Normal) Range: 4.6 - 7.1 :24 Blood Glucose , Office (76849) Blood Glucose , Office 105 (Normal) :13 MICROALBUMIN: CREATININE RATIO Comments: PATIENT WAS FASTINGPERFORMED BY: [facility]6370 [facility] [id number] (13772) AND (42571) Microalb/Creat Ratio 114.0 {mg/g_creat} (Abnormal) Range: 0.0-30.0 Microalbumin, Urine 234.0 ug/mL (Abnormal) Range: 0.0-17.0 Creatinine, Urine 205.3 mg/dL (Normal) Range: 22.0-328.0 :13 Metabolic Panel, Basic Comments: PATIENT WAS FASTINGPERFORMED BY: [facility]6370 [facility] [id number] Information: [id number] (05733) Calcium, Serum 9.6 mg/dL (Normal) Range: 8.7-10.2 [...] 65-99 :09 Creatinine Clearance Comments: PERFORMED BY: LabCoR[facility] Medical CenterXpfrjr1935 [facility] [id number] Information: 03/30@8AM 03/31@630AM Creatinine Clearance 104 mL/min [...] Total, Qn, 24-Hr Comments: PERFORMED BY: TERENCE [facility]NetR[facility] CenterMydsyv0817 [facility] [id number]; appt 04/03/11 Urine Prot,24hr calculated 382.3 {mg/24_hr} (Abnormal) Range: 30.0-150.0 Protein,Total,Urine 13.9 mg/dL (Normal) Range: 0.0-15.0 :13 LIPID PANEL (35138) Comments: in three months (approximately); PATIENT WAS FASTINGPERFORMED BY: [employer]6370 [facility] [id number] LDL/HDL Ratio 4.6 {ratio_units} (Abnormal) Range: 0.0-3.6 [...] three months (approximately); PATIENT WAS FASTINGPERFORMED BY: [facility]NetR[facility] CenterMfbeqh5435 [facility] [id number] Information: [id number] (16394) ALT (SGPT) 53 [iU]/L (Normal) Range: 0-55 AST (SGOT) 38 [iU]/L (Normal) Range: 0-40 Alkaline Phosphatase, S 87 [iU]/L (Normal) Range: 25-150 Bilirubin, Direct 0.13 mg/dL (Normal) Range: 0.00-0.40 Bilirubin, Total 0.5 mg/dL (Normal) Range: 0.0-1.2 Albumin, Serum 4.3 g/dL (Normal) Range: 3.5-5.5 Protein, Total, Serum 6.8 g/dL (Normal) Range: 6.0-8.5 :30 Metabolic Panel, Basic Comments: 2 weeks; PATIENT NOT FASTINGPERFORMED BY: [employer] Jshrsx6082 [facility] [id number] Information: [id number] (55952) Calcium, Serum 9.6 mg/dL (Normal) Range: 8.7-10.2 [...] (Abnormal) Range: 65-99 :59 HgA1C , Office (14223) HgA1C , Office 6 % (Normal) Range: 4.6 - 7.1 :04 Microscopic Examination Comments: PATIENT WAS FASTINGPERFORMED BY: [employer] Smfvzf2450 [facility] [id number] Bacteria None seen (Normal) Mucus Threads Present (Normal) Epithelial Cells (non renal) None seen {/hpf} (Normal) Range: 0 - 10 RBC 0-3 {/hpf} (Normal) Range: 0 - 3 WBC 0-5 {/hpf} (Normal) Range: 0 - 5 :04 Protein Electro, Random Urine Comments: PATIENT WAS FASTINGPERFORMED BY: [facility]NetR[facility] CenterMkbhoc8098 [facility] [id number] Please note: SPRCS (Normal) Comments: Protein electrophoresis scan will follow via computer, mail, orcourier delivery. M-Jozef, % Not Observed % (Normal) Beta Globulin, U 8.1 % (Normal) Gamma Globulin, U 4.8 % (Normal) Nqezu-9-Frobqbeg, U 4.2 % (Normal) Iytfn-6-Qvkvyaxk, U 3.9 % (Normal) Albumin, U 79.0 % (Normal) Protein,Total,Urine 70.0 mg/dL (Abnormal) Range: 0.0-15.0 :04 Protein Electro.,S Comments: PATIENT WAS FASTINGPERFORMED BY: [facility]NetR[facility] Medical CenterSrtbnl3546 [facility] [id number] Information: [id number] Please note: SPRCS (Normal) Comments: Protein electrophoresis scan will follow via computer, mail, orcourier delivery. A/G Ratio 1.3 (Normal) Range: 0.7-2.0 Globulin, Total 3.1 g/dL (Normal) Range: 2.0-4.5 M-Jozef Not Observed g/dL (Normal) Gamma Globulin 0.9 g/dL (Normal) Range: 0.5-1.6 Beta Globulin 1.0 g/dL (Normal) Range: 0.6-1.3 Gblkz-6-Emslzobt 0.3 g/dL (Normal) Range: 0.1-0.4 Nqroq-0-Rotymsyj 1.0 g/dL (Normal) Range: 0.4-1.2 Albumin 4.1 g/dL (Normal) Range: 3.2-5.6 Protein, Total, Serum 7.2 g/dL (Normal) Range: 6.0-8.5 Written Authorization WAR (Normal) Comments: PATIENT WAS FASTINGPERFORMED BY: [facility]6370 [facility] [id number] :04 Comments: Written Authorization Received.Authorization received from CHARLEE CUELLAR [id number] by Nkechi Shaw :04 PSA (PROSTATE SPECIFIC Comments: PATIENT WAS FASTINGPERFORMED BY: [facility]6370 [facility] [id number] ANTIGEN) (V76.44) Prostate Specific Ag, 0.8 ng/mL (Normal) Range: 0.0-4.0 Serum Comments: Quinton ECLIA methodology. .According to the [place] [employer], Serum PSA shoulddecrease and remain [...] CREATININE RATIO Comments: PATIENT WAS FASTINGPERFORMED BY: [facility] [id number] (15619) AND (45128) Microalb/Creat Ratio 277.7 {mg/g_creat} (Abnormal) Range: 0.0-30.0 Microalbumin, Urine 535.4 ug/mL (Abnormal) Range: 0.0-17.0 Creatinine, Urine 192.8 mg/dL (Normal) Range: 22.0-328.0 :04 URINALYSIS, W/ MICRO (52004) Comments: PATIENT WAS FASTINGPERFORMED BY: [facility] [id number] Microscopic Examination See below: (Normal) Nitrite, Urine Negative (Normal) Urobilinogen,Semi-Qn 0.2 mg/dL (Normal) Range: 0.0-1.9 Bilirubin Negative (Normal) Occult Blood Negative (Normal) Ketones Negative (Normal) Glucose Negative (Normal) Protein 2+ (Abnormal) WBC Esterase Negative (Normal) Appearance Clear (Normal) Urine-Color Yellow (Normal) pH 6.0 (Normal) Range: 5.0-7.5 Specific [place] 1.024 (Normal) Range: 1.005-1.030 :04 METABOLIC PANEL, COMPREHENSIVE Comments: PATIENT WAS FASTINGPERFORMED BY: [employer]70 [facility] [id number] (62520) ALT (SGPT) 23 [iU]/L (Normal) Range: 0-55 [...] Glucose, Serum 116 mg/dL (Abnormal) Range: 65-99 16-Uvm-43933:04 LIPID PANEL (74445) Comments: PATIENT WAS FASTINGPERFORMED BY: LabCoR[facility] Medical CenterBrbkmy9144 [facility] [id number] LDL/HDL Ratio 5.7 {ratio_units} (Abnormal) Range: 0.0-3.6 LDL Cholesterol Calc 194 mg/dL (Abnormal) Range: 0-99 Comments: Possible Familial Hypercholesterolemia. FH should be suspected whenfasting LDL cholesterol is above 189 mg/dL or non-HDL cholesterolis above 219 mg/dL. A family history of high cholesterol and heartdise ase in 1st degree relatives should be collected. J Clin Gcsxluw4431;5:133-140 VLDL Cholesterol Jose De Jesus 69 mg/dL (Abnormal) Range: 5-40 HDL Cholesterol 34 mg/dL (Abnormal) Comments: According to ATP-III Guidelines, HDL-C >59 mg/dL is considered anegative risk factor for CHD. Triglycerides 346 mg/dL (Abnormal) Range: 0-149 Cholesterol, Total 297 mg/dL (Abnormal) Range: 100-199 86-Uze-88824:04 CBC WITH MANUAL DIFF Comments: PATIENT WAS FASTINGPERFORMED BY: LabCoR[facility] Medical CenterWjdpkb3658 [facility] [id number] Information: [id number] (70883) Immature Grans (Abs) 0.0 {x10E3/uL} (Normal) Range: [...] from Block, bundle branch, left) : Reviewed Clinical Field Specialist Letter Indication: Left bundle branch block (Renamed [...] (chronic kidney disease), stage III : Reviewed Clinical Field Specialist Letter Indication: CKD (chronic kidney disease), stage III Type 2 diabetes mellitus without complication : Reviewed Lab Indication: Type 2 diabetes mellitus without complication Hypercholesteremia : Cholesterol mgmt Indication: Hypercholesteremia Hypertension with heart disease : HTN/CAD Red Flags Indication: Hypertension with heart disease Coronary artery disease, non-occlusive : Reviewed Clinical Field Specialist Letter Indication: Coronary artery disease, non-occlusive Coronary artery disease, non-occlusive : Continue Current Prescription(s) Indication: Coronary artery disease, non-occlusive Type 2 diabetes mellitus without complication : Follow up in 3 months Indication: Type 2 diabetes mellitus without complication Type 2 diabetes mellitus without complication : Reviewed Lab Indication: Type 2 diabetes mellitus without complication Coronary artery disease, non-occlusive : Reviewed Clinical Field Specialist Letter Indication: Coronary artery disease, non-occlusive Hypertension [...] non-occlusive Coronary artery disease, non-occlusive : Reviewed Clinical Field Specialist Letter Indication: Coronary artery disease, non-occlusive Type 2 diabetes mellitus without complication : Eprescribed prescriptions (G8553) Indication: Type 2 diabetes mellitus without complication Type 2 diabetes mellitus without complication : Follow up in 3 months Indication: Type 2 diabetes mellitus without complication Coronary artery disease, non-occlusive : Continue Current Prescription(s) Indication: Coronary artery disease, non-occlusive Coronary artery disease, non-occlusive : Reviewed Clinical Field Specialist Letter- discharged Indication: Coronary artery disease, non-occlusive [...] disease Coronary artery disease, non-occlusive : Reviewed Clinical Field Specialist Letter Indication: Coronary artery disease, non-occlusive Type [...] Injections Indication: Trigger finger Planned Observations CALCIFIDIOL (14423) VIT D 25Indication: Vitamin D deficiency On: :21 Request TSH (70813)Indication: Type 2 diabetes mellitus without complication On: 23-Hsz-08386:21 Request URINALYSIS, W/ MICRO (64082)Indication: Hypertension with heart disease On: :20 Request MICROALBUMIN: CREATININE RATIO (21137) AND (16809)Indication: Hypertension with heart disease On: :20 Request METABOLIC PANEL, COMPREHENSIVE (50586)Indication: Hypertension with heart disease On: 63-Sny-72913:20 Request LIPOPROTEIN, BLD, BY NMR (68965)Indication: Hypercholesteremia On: :20 Request CBC W/AUTO DIFF WBC (33719)Indication: Hypertension with heart disease On: :20 Request CALCIFEDIOL (17344)Indication: Vitamin D deficiency On: :20 Request TSH (82706)Indication: Type 2 diabetes mellitus without complication On: :20 Request URINALYSIS, W/ MICRO (93005)Indication: Hypertension with heart disease On: :20 Request MICROALBUMIN: CREATININE RATIO (05333) AND (16739)Indication: Hypertension with heart disease On: :20 Request METABOLIC PANEL, COMPREHENSIVE (73050)Indication: Hypertension with heart disease On: :20 Request LIPID PANEL (96122)Indication: Hypertension with heart disease On: : Request CBC with auto diff (36026)Indication: Hypertension with heart disease On: :20 Request HDL CHOLESTEROL-DIRECT (13168)Indication: Hypercholesteremia On: 62-Lek-706981:00 Request CALCIFEDIOL (87008)Indication: Vitamin D deficiency On: 17-Scd-098119:59 Request FECAL OCCULT- Tubes sent home (01971)Indication: Encounter for screening for malignant neoplasm of colon (Renamed from Special screening for malignant neoplasms, colon) On: :48 Request CBC with auto diff (69729)Indication: Type 2 diabetes mellitus without complication On: :40 Request Comments: all in six months (approximately) MICROALBUMIN: CREATININE RATIO (25321) AND (38990)Indication: Type 2 diabetes mellitus without complication On: :40 Request METABOLIC PANEL, COMPREHENSIVE (62242)Indication: Type 2 diabetes mellitus without complication On: :40 Request LIPID PANEL (24292)Indication: Type 2 diabetes mellitus without complication On: :40 Request MICROALBUMIN: CREATININE RATIO (10046) AND (87520)Indication: Type 2 diabetes mellitus without complication On: :09 Request PSA (PROSTATE SPECIFIC ANTIGEN) (30540)Indication: Type 2 diabetes mellitus without complication On: :08 Request CBC, PLATELETS & MANUAL DIFF (80159)Indication: Type 2 diabetes mellitus without complication On: :08 Request METABOLIC PANEL, COMPREHENSIVE (72231)Indication: Type 2 diabetes mellitus without complication On: :08 Request LIPID PANEL (03742)Indication: Type 2 diabetes mellitus without complication On: :08 Request MICROALBUMIN: CREATININE RATIO (26379) AND (77152)Indication: Type 2 diabetes mellitus without complication On: :24 Request METABOLIC PANEL, COMPREHENSIVE (31439)Indication: Type 2 diabetes mellitus without complication On: :24 Request LIPID PANEL (94829)Indication: Type 2 diabetes mellitus without complication On: :24 Request CBC W/AUTO DIFF WBC (15483)Indication: Type 2 diabetes mellitus without complication On: :24 Request Lipid Panel (45046)Indication: Benign essential HTN On: :48 Request Metabolic Panel, Comprehensive (66943)Indication: Benign essential HTN On: :48 Request 24 hour urine for Protein (43809)Indication: Benign essential HTN On: :16 Request UPEP (97897)Indication: Proteinuria On: :09 Request SPEP (54486)Indication: Proteinuria On: :09 Request Planned Encounters Medical; 3 Month FU - On: 19-Aug-2018 7:30 [facility] Jessica Redmond DO, DO, Kathleen Planned Procedures Nuclear Stress Test/Stress On: 20-May-2018 Intent SPECT/TreadmillBy: Jessica Redmond DO, DO, Kathleen Flu Vaccine (Quadrivalent) 75931Ro: On: 20-May-2018 Intent Mar Mendiola Comments: Lot #[id number]-L dltd, IMAmount: 0.5mlVIS reviewed and ABN signedgiven by:JACEK Bauer reviewed and ABN signed ELECTROCARDIOGRAM, COMPLETE (ECG) On: 17-Feb-2018 Intent (23244)By: Jessica Redmond DO Comments: nsr LBBB-old, no acute chg Jessica BOOTHE COMPLETE ULTRASOUND OF KIDNEY On: 03-Dec-2017 Intent (06333)By: Jessica Redmond DO Comments: b/l DO, Jessica ELECTROCARDIOGRAM, COMPLETE (ECG) On: 15-Apr-2017 Intent (37130)By: Jessica Redmond DO Comments: nsr - LBBB-old , Jessica Flu Vaccine (Quadrivalent) 11215Uu: On: 15-Apr-2017 Intent Ruy Jessica BOOTHE Ruy BOOTHE, Comments: Lot #[id number]/07/17ite-L dltd, IMDose prefilled syringegiven by:JULIANNE Roth and ABN signed Jessica ELECTROCARDIOGRAM, COMPLETE (ECG) On: 12-May-2016 Intent (66491)By: Jessica Redmond DO Comments: nsr LBBB- - no acute chg Mitzy BOOTHEeen Flu Vaccine (Quadrivalent) 27194Of: On: 12-May-2016 Intent RuyJessica yang DO Ruy BOOTHE, Comments: Lot #[id number]/30/17ite-L dltd, IMDose prefilled syringegiven by:JULIANNE Roth and ABN signed Jessica CT - Chest (Without Contrast)By: On: 09-Nov-2015 Intent Charlee Cuellar MD Comments: LDCT 30 plus year history TDAP VACCINE >7 IM (79430)By: Edmond On: 11-May-2015 Intent Charlee LARA Comments: boostrixlot [id number] 10.9.17L Dltd, IMPrefilled syringeMegan JULIANNE Munroe signed ADMINISTRATION OF INFLUENZA VIRUS On: 11-May-2015 Intent VACCINE (G0008)By: Charlee Cuellar MD Flu Vaccine (Quadrivalent) 47688Ky: On: 11-May-2015 Intent Charlee Cuellar MD Comments: Lot #:[id number] date:Amount given:0.5mlRoute: IMSite given:L DltdGiven by: Iris TIRADO and ABN signed Quad Flu Flu Vaccine (Quadrivalent) 89597Bg: On: 12-May-2014 Intent Charlee Cuellar MD ADMINISTRATION OF INFLUENZA VIRUS On: 12-May-2014 Intent VACCINE (G0008)By: Charlee Cuellar MD EKG (43303)By: Charlee Cuellar MD On: 10-Feb-2014 Intent Comments: see scanned document of test done to see results reviewed today with patient Nuclear Stress Test/Stress On: 10-Feb-2014 Intent SPECT/TreadmillBy: Charlee Cuellar MD Eprescribed prescriptions (G8553)By: On: 10-Nov-2013 Intent Charlee Cuellar MD Nuclear Stress Test/Stress On: 05-May-2013 Intent SPECT/TreadmillBy: Charlee Cuellar MD EKG (37651)By: Charlee Cuellar MD On: 05-May-2013 Intent Comments: see scanned document of test done to see results reviewed today with patient Eprescribed prescriptions (G8553)By: On: 03-Dec-2012 Intent Debbie Cisneros FLU VAC, SPLIT, >3 YEARS, INTRAMUSC On: 23-Apr-2012 Intent (81249)By: Iris Munroe LPN Comments: declined ELECTROCARDIOGRAM, COMPLETE (ECG) On: 23-Apr-2012 Intent (98075)By: Iris Munroe LPN IMMUNIZ ADMNIN, 1 VAC, SNGL/COMBO On: 23-Apr-2012 Intent (26151)By: Iris Munroe LPN Eprescribed prescriptions (G8553)By: On: 23-Apr-2012 Intent Iris Munroe LPN FLU VAC, SPLIT, >3 YEARS, INTRAMUSC On: 03-Apr-2011 Intent (44153)By: Iris Munroe LPN Comments: DECLINED IMMUNIZ ADMNIN, 1 VAC, SNGL/COMBO On: 03-Apr-2011 Intent (85615)By: Iris Munroe LPN Nuclear Stress Test/Stress On: 28-Feb-2011 Intent SPECT/TreadmillBy: Charlee Cuellar MD Echo CompleteBy: Charlee Cuellar MD On: 28-Feb-2011 Intent EKG (51309)By: Charlee Cuellar MD On: 28-Feb-2011 Intent Instructions [...] for Tdap vaccination (Renamed from Need for nvniumctav-avjyrwx-wubceqzrg (Tdap) vaccine, adult/adolescent) [facility] [...]
--- OUTSIDE RECORDS SUMMARY | 2018-07-19 02:04 | XMS RPT_ITS | Continuity of Care Document ---
:1960 Author Organization [facility] Address [facility]7 [facility] 2 [place] [address] Phone Care Team Providers Name Role Phone Jessica Redmond DO Unavailable Blayne Izquierdo Unavailable KIMBERLY Donato Unavailable Unavailable Long Iris HARRIS Unavailable Unavailable Federico Harrison Unavailable Unavailable Unavailable Unavailable Problems Name Dates Details BMI 30.0-30.9,adult (Z68.30, V85.30) Status: Active BMI 30.0-30.9,adult (Z68.30, V85.30) Status: Active CKD (chronic kidney disease), stage III (N18.3, 585.3) Status: Active Colon polyps (K63.5, 211.3) Comments: hemocult 09/05 negative - last scope 2012-- due in 2018 Status: Active Coronary artery disease (I25.10, 414.00) Comments: xcath show 45% block in single artery 10-11, stress good 11-14 Status: Active Coronary artery disease, non-occlusive (I25.10, 414.00) Comments: discharged from cardio Status: Active Encounter for routine history and [...] from Block, bundle branch, 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, 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) Status: Active NEED FOR PROPHYLACTIC VACCINATION AND [...] days Quantity: 90 {Tablet} Refills: 1 Ordered:10-Dec-2017 Ruy BOOTHEShelley DO Jessica Start : 10-Dec-2017 Active Losartan Potassium-HCTZ 100-25 MG Oral Tablet 1 (one) Tablet Tablet QD for 0 days Quantity: 30 {Tablet} Refills: 3 Ordered:17-Feb-2018 Ludwig HARRISMonroen Babatunde Start : 17-Feb-2018 Active MetFORMIN HCl 500 MG Oral Tablet 1 (one) Tablet bid for 0 days Quantity: 180 {Tablet} Refills: 0 Ordered:08-Mar-2018 Ruy BOOTHEShelley DO Jessica Start : 08-Mar-2018 Active Metoprolol Succinate ER 50 MG Oral Tablet Extended Release 24 Hour 1 Tablet ER 24HR at night for 0 days Quantity: 90 {Tablet} Refills: 3 Ordered:17-Feb-2018 Ruy BOOTHEShelley DO Jessica Start : 17-Feb-2018 Active CHANTIX CONTINUING MONTH MICHAEL, 1MG (Oral [...] days Quantity: 90 {Tablet} Refills: 0 Ordered:24-Mar-2018 Ludwig HARRISMonroealen Fine Start : 15-Mar-2018 End : 24-Mar-2018 Inactive [...] for Tdap vaccination (Renamed from Need for qugjhlxgyf-iolcvam-zwfkplmbo (Tdap) vaccine, adult/adolescent) (Z23, V06.1) Status: Inactive [...] 5 years Date Value Details 11-May-2015 EKG (38697) Result: [MEASUREMENTS ANALYSIS] Date of Test: 05/11/2015 07:26:19; Heart Rate: 67; NE Interval: 176; QRS: 140; QT Interval: 414; Corrected QT Interval (QTc): 426; P Wave [place]: 58; QRS Wave [place]: -45; T Wave Axi s: 70; Blood [...] Status: Active Current Work/Study Status: Full-time. Comments: [employer] Status: Active Exercise History: Does not exercise. Status: Active Living Situation: Lives with spouse. Comments: Status: Active No Drug Use Status: Active Tobacco Use: Former smoker. Status: Active Smoking Status Name Dates Details Former smoker Vital Signs Date Test Result Details 24-Mar-20188:10 Comments: readings from home 103-120s/60-70s on average [...] Description Value Details :49 HgA1C , Office (82138) HgA1C , Office 5.9 % (Normal) Range: 4.6 - 7.1 :49 Blood Glucose , Office (50173) Blood Glucose , Office 115 (Normal) :26 POTASSIUM SERUM (52268) Comments: PATIENT NOT FASTINGPERFORMED BY: TERENCE [facility] Mqyhfp1149 [facility] [id number] Potassium 4.5 mmol/L (Normal) Range: 3.5-5.2 :52 Albumin/Creatinine Ratio,Urine Comments: PATIENT WAS FASTINGPERFORMED BY: [facility] [id number] Alb/Creat Ratio 22.6 {mg/g_creat} (Normal) Range: 0.0-30.0 Albumin, Urine 12.8 ug/mL (Normal) Creatinine, Urine 56.6 mg/dL (Normal) 69-Cqp-846531:52 CBC With Differential/Platelet Comments: PATIENT WAS FASTINGPERFORMED BY: [facility] [id number] Information: CLIENT INTERNET DOWN Immature Grans (Abs) [...] 4.14-5.80 WBC 7.8 {x10E3/uL} (Normal) Range: 3.4-10.8 45-Kyg-221431:52 Comp. Metabolic Panel (14) Comments: PATIENT WAS FASTINGPERFORMED BY: [employer] - OnvelopSaint Clare's Hospital at SussexVnmhib3502 [facility] [id number] ALT (SGPT) 29 [iU]/L (Normal) Range: 0-44 [...] 6-24 Glucose 110 mg/dL (Abnormal) Range: 65-99 23-Zhv-847941:52 Lipid Panel With LDL/HDL Comments: PATIENT WAS FASTINGPERFORMED BY: LabNeoCodexSaint Clare's Hospital at SussexLmznjk5368 [facility] [id number] Ratio LDL/HDL Ratio 1.4 {ratio} (Normal) Range: [...] Cholesterol, Total 105 mg/dL (Normal) Range: 100-199 60-Yva-208302:52 Microscopic Examination Comments: PATIENT WAS FASTINGPERFORMED BY: [employer]70 [facility] [id number] Bacteria Few (Normal) Mucus Threads Present (Normal) Epithelial Cells (non None seen {/hpf} Range: 0 - 10 renal) (Normal) RBC None seen {/hpf} Range: 0 - 2 (Normal) WBC 0-5 {/hpf} (Normal) Range: 0 - 5 TSH 2.030 {uIU/mL} Comments: PATIENT WAS FASTINGPERFORMED BY: [employer]70 [facility] [id number] 3:52 (Normal) Range: 0.450-4.500 48-Add-963389:52 Urinalysis, Complete Comments: PATIENT WAS FASTINGPERFORMED BY: [facility]6370 [facility] [id number] Microscopic Examination See below: (Normal) Comments: Microscopic was indicated and was performed. Microscopic Examination MICRON (Normal) Comments: Microscopic follows if indicated. Nitrite, Urine Negative (Normal) Urobilinogen,Semi-Qn 0.2 mg/dL (Normal) Range: 0.2-1.0 Bilirubin Negative (Normal) Occult Blood Negative (Normal) Ketones Negative (Normal) Glucose Negative (Normal) Protein Negative (Normal) WBC Esterase Negative (Normal) Appearance Clear (Normal) Urine-Color Yellow (Normal) pH 5.5 (Normal) Range: 5.0-7.5 Specific [place] 1.014 (Normal) Range: 1.005-1.030 Vitamin D, 25-Hydroxy 71.0 ng/mL (Normal) Comments: PATIENT WAS FASTINGPERFORMED BY: [facility]6370 [facility] [id number] 3:52 Range: 30.0-100.0 Comments: Vitamin D deficiency has been defined by the [place] ofMedicine and an Endocrine Society practice guideline as alevel of serum 25-OH vitamin D less than 20 ng/mL (1,2).The Endocrine Society went on to further define vitamin Dinsufficiency as a level between 21 and 29 ng/mL (2).1. IOM ([place]onas of Medicine). 2010. Dietary reference intakes for calcium and D. [place]: The National Academies Press.2. Loki MF, Diane WHEELER, Jessie CARTER, et al. Evaluation, treatment, and prevention of vitamin D deficiency: an Endocrine Society clinical practice guideline. JCEM. 2010; 96(7):1911-30. 32-Lrp-81935:21 MARNIE (ANTINUCLEAR ANTIBODY) Comments: PATIENT NOT FASTINGPERFORMED BY: [employer] [place] [id number] (91271) MARNIE Direct Negative (Normal) 76-Otq-184980:14 Metabolic Panel, Basic Comments: PATIENT NOT FASTINGPERFORMED BY: [facility]6[address] [place] [id number] (09166) Calcium 9.9 mg/dL (Normal) Range: 8.7-10.2 Carbon [...] (Abnormal) Range: 65-99 :14 HgA1C , Office (12664) HgA1C , Office 6.0 % (Normal) Range: 4.6 - 7.1 :14 Blood Glucose , Office (10483) Blood Glucose , Office 128 (Normal) 20-Slp-42101:10 Microscopic Examination Comments: PATIENT WAS FASTINGPERFORMED BY: [facility] [id number] Bacteria None seen (Normal) Mucus Threads Present (Normal) Epithelial Cells (non renal) None seen {/hpf} (Normal) Range: 0 - 10 RBC 0-2 {/hpf} (Normal) Range: 0 - 2 WBC 0-5 {/hpf} (Normal) Range: 0 - 5 :10 CALCIFEDIOL (48275) Comments: PATIENT WAS FASTINGPERFORMED BY: [facility] [id number] Vitamin D, 25-Hydroxy 48.4 ng/mL (Normal) Range: 30.0-100.0 Comments: Vitamin D deficiency has been defined by the [place]onas ofMedicine and an Endocrine Society practice guideline as alevel of serum 25-OH vitamin D less than 20 ng/mL (1,2).The Endocrine Society went on to further define vitamin Dinsufficiency as a level between 21 and 29 ng/mL (2).1. IOM (Toponas of Medicine). 2010. Dietary reference intakes for calcium and D. [place]: The National Academies Press.2. Loki MF, Diane NC, Jessie CARTER, et al. Evaluation, treatment, and prevention of vitamin D deficiency: an Endocrine Society clinical practice guideline. JCEM. 2010; 96(7):1911-30. 28-Zgz-18401:10 LIPID PANEL (41193) Comments: PATIENT WAS FASTINGPERFORMED BY: [facility] [id number] LDL/HDL Ratio 1.8 {ratio} (Normal) Range: 0.0-3.6 [...] Cholesterol, Total 156 mg/dL (Normal) Range: 100-199 59-Leb-30566:10 TSH (12948) Comments: PATIENT WAS FASTINGPERFORMED BY: [facility] [id number] TSH 3.530 {uIU/mL} (Normal) Range: 0.450-4.500 64-Wxm-33701:10 URINALYSIS, W/ MICRO (28085) Comments: PATIENT WAS FASTINGPERFORMED BY: [facility] [id number] Microscopic Examination See below: (Normal) Comments: Microscopic was indicated and was performed. Microscopic Examination MICRON (Normal) Comments: Microscopic follows if indicated. Nitrite, Urine Negative (Normal) Urobilinogen,Semi-Qn 0.2 mg/dL (Normal) Range: 0.2-1.0 Bilirubin Negative (Normal) Occult Blood Negative (Normal) Ketones Negative (Normal) Glucose Negative (Normal) Protein Negative (Normal) WBC Esterase Negative (Normal) Appearance Clear (Normal) Urine-Color Yellow (Normal) pH 5.5 (Normal) Range: 5.0-7.5 Specific [place] 1.013 (Normal) Range: 1.005-1.030 21-Udx-85378:10 MICROALBUMIN: CREATININE RATIO Comments: PATIENT WAS FASTINGPERFORMED BY: [facility] [id number] (11612) AND (22806) Alb/Creat Ratio 28.7 {mg/g_creat} (Normal) Range: 0.0-30.0 Albumin, Urine 20.3 ug/mL (Normal) Creatinine, Urine 70.7 mg/dL (Normal) :10 METABOLIC PANEL, COMPREHENSIVE Comments: PATIENT WAS FASTINGPERFORMED BY: [facility] [id number] (53714) ALT (SGPT) 42 [iU]/L (Normal) Range: 0-44 [...] 6-24 Glucose 98 mg/dL (Normal) Range: 65-99 24-Yxy-65452:10 CBC W/AUTO DIFF WBC (56790) Comments: PATIENT WAS FASTINGPERFORMED BY: LabCoSaint Clare's Hospital at SussexJwsvqf3320 [facility] [id number]; ov 6/6 Immature Grans (Abs) 0.0 {x10E3/uL} [...] (Normal) Range: 3.4-10.8 :00 HgA1C , Office (93947) HgA1C , Office 5.8 % (Normal) Range: 4.6 - 7.1 :00 Blood Glucose , Office (85596) Blood Glucose , Office 125 (Normal) :17 Metabolic Panel, Basic (98424) Comments: do in 1-2 weeks; PATIENT NOT FASTINGPERFORMED BY: [facility]BaseSelect [facility] [id number] Calcium, Serum 9.9 mg/dL (Normal) Range: 8.7-10.2 [...] Comments: 3mon do; PATIENT WAS FASTINGPERFORMED BY: ActionBaseSelect [facility]ty Hospital [facility] [id number] (52944) ALT (SGPT) 29 [iU]/L (Normal) Range: 0-44 AST (SGOT) 23 [iU]/L (Normal) Range: 0-40 Alkaline Phosphatase, S 57 [iU]/L (Normal) Range: 39-117 Bilirubin, Direct 0.15 mg/dL (Normal) Range: 0.00-0.40 Bilirubin, Total 0.6 mg/dL (Normal) Range: 0.0-1.2 Albumin, Serum 4.6 g/dL (Normal) Range: 3.5-5.5 Protein, Total, Serum 6.9 g/dL (Normal) Range: 6.0-8.5 :36 LIPID PANEL (88593) Comments: do in 3mon; PATIENT WAS FASTINGPERFORMED BY: [employer] Werkly9532 [facility] [id number] LDL/HDL Ratio 1.8 {ratio_units} (Normal) Range: 0.0-3.6 [...] (Normal) Range: 100-199 :01 HgA1C , Office (45931) HgA1C , Office 5.9 % (Normal) Range: 4.6 - 7.1 :01 Blood Glucose , Office (43662) Blood Glucose , Office 130 (Normal) :18 TSH (66772) Comments: PATIENT WAS FASTINGPERFORMED BY: [employer] - OnvelopSaint Clare's Hospital at SussexJkqsxs4910 [facility] [id number] TSH 1.920 {uIU/mL} (Normal) Range: 0.450-4.500 :18 METABOLIC PANEL, COMPREHENSIVE Comments: PATIENT WAS FASTINGPERFORMED BY: LabCoSaint Clare's Hospital at SussexKshxgm6800 [facility] [id number] (11550) ALT (SGPT) 27 [iU]/L (Normal) Range: 0-44 [...] Glucose, Serum 114 mg/dL (Abnormal) Range: 65-99 99-Wlq-48741:18 LIPID PANEL (59603) Comments: PATIENT WAS FASTINGPERFORMED BY: LabCoSaint Clare's Hospital at SussexUbcxfj7218 [facility] [id number] LDL/HDL Ratio 2.0 {ratio_units} (Normal) Range: 0.0-3.6 [...] Range: 100-199 :18 CBC W/AUTO DIFF WBC (98262) Comments: PATIENT WAS FASTINGPERFORMED BY: LabMclaren Northern Michigan6370 [facility] [id number] Immature Grans (Abs) 0.0 {x10E3/uL} (Normal) Range: [...] (Normal) Range: 3.4-10.8 :49 HgA1C , Office (35047) HgA1C , Office 5.9 % (Normal) Range: 4.6 - 7.1 :49 Blood Glucose , Office (58071) Blood Glucose , Office 133 (Normal) HDL Cholesterol 34 mg/dL (Abnormal) Comments: PATIENT WAS FASTINGPERFORMED BY: LabSaint [facility] Lwazmy2499 [facility] [id number] 0:18 Vitamin D, 25-Hydroxy 46.2 ng/mL (Normal) Comments: PATIENT WAS FASTINGPERFORMED BY: [facility] Dcestc4225 [facility] [place] [id number] 0:18 Range: 30.0-100.0 Comments: Vitamin D deficiency has been defined by the Toponas ofAvita Health Systemcine and an Endocrine Society practice guideline as alevel of serum 25-OH vitamin D less than 20 ng/mL (1,2).The Endocrine Society went on to further define vitamin Dinsufficiency as a level between 21 and 29 ng/mL (2).1. IOM ([place]onas of Medicine). 2010. Dietary reference intakes for calcium and D. [place]: The National Academies Press.2. Loki MF, Diane NC, Jessie CARTER, et al. Evaluation, treatment, and prevention of vitamin D deficiency: an Endocrine Society clinical practice guideline. JCEM. 2010; 96(7):1911-30. :14 HgA1C , Office (55400) HgA1C , Office 6.1 % (Normal) Range: 4.6 - 7.1 :14 Blood Glucose , Office (25998) Blood Glucose , Office 111 (Normal) 31-Wcl-285928:23 Microscopic Examination Comments: PATIENT WAS FASTINGPERFORMED BY: [facility]Co Qfivue2669 [facility] [id number] Bacteria Few (Normal) Mucus Threads Present (Normal) Cast Type Hyaline casts (Normal) Casts Present {/lpf} (Abnormal) Epithelial Cells (non renal) None seen {/hpf} (Normal) Range: 0 - 10 RBC 0-2 {/hpf} (Normal) Range: 0 - 2 WBC 0-5 {/hpf} (Normal) Range: 0 - 5 :49 Fecal Occult Blood , Office (46762) Fecal Occult Blood , Office (Inhouse) negative (Normal) :23 CALCIFIDIOL (87016) VIT D 25 Comments: PATIENT WAS FASTINGPERFORMED BY: [employer] Rqaarx4644 [facility] [id number] Vitamin D, 25-Hydroxy 10.5 ng/mL (Abnormal) Range: 30.0-100.0 Comments: Vitamin D deficiency has been defined by the Toponas ofMedicine and an Endocrine Society practice guideline as alevel of serum 25-OH vitamin D less than 20 ng/mL (1,2).The Endocrine Society went on to further define vitamin Dinsufficiency as a level between 21 and 29 ng/mL (2).1. IOM (Toponas of Medicine). 2010. Dietary reference intakes for calcium and D. [place]: The National Academies Press.2. Loki MF, Diane NC, Jessie CARTER, et al. Evaluation, treatment, and prevention of vitamin D deficiency: an Endocrine Society clinical practice guideline. JCEM. 2010; 96(7):1911-30. 60-Vky-357691:23 TSH (95111) Comments: PATIENT WAS FASTINGPERFORMED BY: [employer] Nndaqk2342 [facility] [id number] TSH 2.340 {uIU/mL} (Normal) Range: 0.450-4.500 :23 URINALYSIS, W/ MICRO (44139) Comments: PATIENT WAS FASTINGPERFORMED BY: [employer] Zxbtfc6456 [facility] [id number] Microscopic Examination See below: (Normal) Comments: Microscopic was indicated and was performed. Microscopic Examination MICRON (Normal) Comments: Microscopic follows if indicated. Nitrite, Urine Negative (Normal) Urobilinogen,Semi-Qn 0.2 mg/dL (Normal) Range: 0.2-1.0 Bilirubin Negative (Normal) Occult Blood Negative (Normal) Ketones Negative (Normal) Glucose Negative (Normal) Protein Trace (Normal) WBC Esterase Negative (Normal) Appearance Clear (Normal) Urine-Color Yellow (Normal) pH 5.5 (Normal) Range: 5.0-7.5 Specific [place] 1.025 (Normal) Range: 1.005-1.030 52-Xwa-782599:23 MICROALBUMIN: CREATININE RATIO Comments: PATIENT WAS FASTINGPERFORMED BY: [employer] - OnvelopSaint Clare's Hospital at SussexXqeeon4740 [facility] [id number] (59055) AND (53928) Microalb/Creat Ratio 26.8 {mg/g_creat} (Normal) Range: 0.0-30.0 Microalbumin, Urine 56.0 ug/mL (Normal) Creatinine, Urine 209.1 mg/dL (Normal) 59-Bkh-937721:23 METABOLIC PANEL, COMPREHENSIVE Comments: PATIENT WAS FASTINGPERFORMED BY: [employer] - OnvelopSaint Clare's Hospital at SussexZbhzpl0896 [facility] [id number] (77204) ALT (SGPT) 25 [iU]/L (Normal) Range: 0-44 [...] Glucose, Serum 119 mg/dL (Abnormal) Range: 65-99 19-Apu-011456:23 LIPID PANEL (44113) Comments: PATIENT WAS FASTINGPERFORMED BY: [employer] - OnvelopSaint Clare's Hospital at SussexXygxdp2498 [facility] [id number] LDL/HDL Ratio 2.0 {ratio_units} (Normal) Range: 0.0-3.6 [...] Cholesterol, Total 129 mg/dL (Normal) Range: 100-199 02-Ttl-912620:23 CBC with auto diff (35672) Comments: PATIENT WAS FASTINGPERFORMED BY: [employer] - OnvelopSaint Clare's Hospital at SussexXijsby7747 [facility] [id number] Immature Grans (Abs) 0.0 {x10E3/uL} (Normal) Range: [...] 4.14-5.80 WBC 8.5 {x10E3/uL} (Normal) Range: 3.4-10.8 36-Jch-284830:23 PSA (PROSTATE SPECIFIC Comments: PATIENT WAS FASTINGPERFORMED BY: [employer] [place] [id number] ANTIGEN) (V76.44) Prostate Specific Ag, 1.3 ng/mL (Normal) Range: 0.0-4.0 Serum Comments: [employer] ECLIA methodology. .According to the [place] [employer], Serum PSA shoulddecrease and remain [...] of malignant disease. :54 HgA1C , Office (31191) HgA1C , Office 6.2 % (Normal) Range: 4.6 - 7.1 :54 Blood Glucose , Office (50468) Blood Glucose , Office 111 (Normal) 78-Cmc-612363:11 MICROALBUMIN: CREATININE RATIO Comments: PATIENT WAS FASTINGPERFORMED BY: [employer] Ttiocx9337 Etive TechnologiesSelect Specialty Hospital [facility] [id number] (39406) AND (04408) Microalb/Creat Ratio 17.8 {mg/g_creat} (Normal) Range: 0.0-30.0 Microalbumin, Urine 12.0 ug/mL (Normal) Creatinine, Urine 67.6 mg/dL (Normal) 64-Zwm-170951:11 METABOLIC PANEL, COMPREHENSIVE Comments: PATIENT WAS FASTINGPERFORMED BY: [employer] Wclpau2349 [facility] [id number] (62250) ALT (SGPT) 25 [iU]/L (Normal) Range: 0-44 [...] Glucose, Serum 103 mg/dL (Abnormal) Range: 65-99 11-Bxu-215943:11 LIPID PANEL (63842) Comments: PATIENT WAS FASTINGPERFORMED BY: [employer] Veftqk8373 [facility] [id number] LDL/HDL Ratio 2.6 {ratio_units} (Normal) Range: 0.0-3.6 [...] Cholesterol, Total 166 mg/dL (Normal) Range: 100-199 89-Xea-048546:11 CBC with auto diff (71500) Comments: PATIENT WAS FASTINGPERFORMED BY: LabCoSaint Clare's Hospital at SussexDxpbdf5329 [facility] [id number]; fu 05-12-[address] Redmond Immature Grans [...] (Normal) Range: 3.4-10.8 :09 HgA1C , Office (62433) HgA1C , Office 6.2 % (Normal) Range: 4.6 - 7.1 :03 Metabolic Panel, Basic Comments: 4-6 weeks; PATIENT NOT FASTINGPERFORMED BY: [employer] - OnvelopSaint Clare's Hospital at SussexUrdarv5621 [facility] [id number] Information: [id number]; [address] (53381) Calcium, Serum 9.7 mg/dL (Normal) Range: 8.7-10.2 [...] (Abnormal) Range: 65-99 :10 HgA1C , Office (13097) HgA1C , Office 6.2 % (Normal) Range: 4.6 - 7.1 :13 MICROALBUMIN: CREATININE RATIO Comments: PATIENT WAS FASTINGPERFORMED BY: LabMclaren Northern Michigan6370 [facility] [id number] (90001) AND (77371) Microalb/Creat Ratio 63.8 {mg/g_creat} (Abnormal) Range: 0.0-30.0 Microalbumin, Urine 62.1 ug/mL (Abnormal) Range: 0.0-17.0 Creatinine, Urine 97.3 mg/dL (Normal) Range: 22.0-328.0 :13 METABOLIC PANEL, COMPREHENSIVE Comments: PATIENT WAS FASTINGPERFORMED BY: LabCoSaint Clare's Hospital at SussexNyuttz3194 [facility] [id number] (20885) ALT (SGPT) 32 [iU]/L (Normal) Range: 0-44 [...] Glucose, Serum 118 mg/dL (Abnormal) Range: 65-99 81-Mxe-78291:13 LIPID PANEL (58783) Comments: PATIENT WAS FASTINGPERFORMED BY: LabCoSaint Clare's Hospital at SussexRbqazr0065 [facility] [id number] LDL/HDL Ratio 2.6 {ratio_units} (Normal) Range: 0.0-3.6 [...] Cholesterol, Total 146 mg/dL (Normal) Range: 100-199 08-Tqh-64812:13 CBC with auto diff Comments: PATIENT WAS FASTINGPERFORMED BY: LabCoSaint Clare's Hospital at SussexKswwfc2542 [facility] [id number] Information: [id number] (90802) Immature Grans (Abs) 0.0 {x10E3/uL} (Normal) Range: [...] (PROSTATE SPECIFIC Comments: PATIENT WAS FASTINGPERFORMED BY: [employer] - OnvelopSaint Clare's Hospital at SussexMcplpu6576 [facility] [id number]; apt. 05-11-15 ANTIGEN) (V76.44) Prostate Specific Ag, 0.7 ng/mL (Normal) Range: 0.0-4.0 Serum Comments: [employer] ECLIA methodology. .According to the [place] [employer], Serum PSA shoulddecrease and remain [...] of malignant disease. :00 HgA1C , Office (85875) HgA1C , Office 6.3 % (Normal) Range: 4.6 - 7.1 :00 Blood Glucose , Office (67022) Blood Glucose , Office 143 (Normal) :16 CBC With Differential/Platelet Comments: PATIENT WAS FASTINGPERFORMED BY: [employer] - OnvelopSaint Clare's Hospital at SussexViczks4047 [facility] [id number] Information: [id number] Immature Grans (Abs) 0.0 {x10E3/uL} (Normal) Range: [...] 4.14-5.80 WBC 9.5 {x10E3/uL} (Normal) Range: 3.4-10.8 46-Irp-31870:16 Comp. Metabolic Panel (14) Comments: PATIENT WAS FASTINGPERFORMED BY: LabCo Nmgegl7185 [facility] [id number] ALT (SGPT) 29 [iU]/L (Normal) Range: 0-44 [...] With LDL/HDL Comments: PATIENT WAS FASTINGPERFORMED BY: [employer] - OnvelopZia Health ClinicJwxjaq0525 [facility] [id number] Ratio LDL/HDL Ratio 2.7 {ratio_units} (Normal) Range: [...] mg/dL (Normal) Range: 100-199 :16 Microalb/Creat Ratio, Randbrenda Ur Comments: PATIENT WAS FASTINGPERFORMED BY: [employer] - OnvelopSaint Clare's Hospital at SussexDqgbvw1985 [facility] [id number] Microalb/Creat Ratio 91.1 {mg/g_creat} (Abnormal) Range: 0.0-30.0 Microalbumin, Urine 67.5 ug/mL (Abnormal) Range: 0.0-17.0 Creatinine, Urine 74.1 mg/dL (Normal) Range: 22.0-328.0 :02 HgA1C , Office (22431) HgA1C , Office 6.1 % (Normal) Range: 4.6 - 7.1 :02 Blood Glucose , Office (87846) Blood Glucose , Office 142 (Normal) :47 PSA (PROSTATE SPECIFIC Comments: PATIENT WAS FASTINGPERFORMED BY: [employer]6370 [facility] [id number] ANTIGEN) (V76.44) Prostate Specific Ag, 0.7 ng/mL (Normal) Range: 0.0-4.0 Serum Comments: [place] ECLIA methodology. .According to the [place] [employer], Serum PSA shoulddecrease and remain [...] CREATININE RATIO Comments: PATIENT WAS FASTINGPERFORMED BY: [employer]6370 [facility] [id number] (74837) AND (48773) Microalb/Creat Ratio 85.1 {mg/g_creat} (Abnormal) Range: 0.0-30.0 Microalbumin, Urine 102.0 ug/mL (Abnormal) Range: 0.0-17.0 Creatinine, Urine 119.8 mg/dL (Normal) Range: 22.0-328.0 :47 METABOLIC PANEL, COMPREHENSIVE Comments: PATIENT WAS FASTINGPERFORMED BY: [employer]6370 [facility] [id number] (41848) ALT (SGPT) 29 [iU]/L (Normal) Range: 0-44 [...] mg/dL (Abnormal) Range: 65-99 :47 LIPID PANEL (86242) Comments: PATIENT WAS FASTINGPERFORMED BY: [facility] [id number] LDL/HDL Ratio 2.2 {ratio_units} (Normal) Range: 0.0-3.6 [...] DIFF WBC Comments: PATIENT WAS FASTINGPERFORMED BY: [employer] [facility] [id number] Information: [id number] (81545) Immature Grans (Abs) 0.0 {x10E3/uL} (Normal) Range: [...] (Normal) Range: 3.4-10.8 :08 HgA1C , Office (38042) HgA1C , Office 6.2 % (Normal) Range: 4.6 - 7.1 :08 Blood Glucose , Office (09160) Blood Glucose , Office 138 (Normal) :39 Blood Glucose , Office (06756) Blood Glucose , Office 141 (Normal) :39 HgA1C , Office (00901) HgA1C , Office 6.5 % (Normal) Range: 4.6 - 7.1 96-Lsi-347043:42 METABOLIC PANEL, Comments: PATIENT WAS FASTINGPERFORMED BY: [facility]6370 [facility] [id number] Information: [id number] COMPREHENSIVE (99375) ALT (SGPT) 46 [iU]/L (Abnormal) Range: 0-44 [...] Glucose, Serum 117 mg/dL (Abnormal) Range: 65-99 06-Tvd-847101:42 LIPID PANEL (33520) Comments: PATIENT WAS FASTINGPERFORMED BY: LabCoSaint Clare's Hospital at SussexNkxeld8742 [facility] [id number] LDL/HDL Ratio 3.4 {ratio_units} (Normal) Range: 0.0-3.6 LDL Cholesterol Calc 108 mg/dL (Abnormal) Range: 0-99 VLDL Cholesterol Jose De Jesus 37 mg/dL (Normal) Range: 5-40 HDL Cholesterol 32 mg/dL (Abnormal) Comments: According to ATP-III Guidelines, HDL-C >59 mg/dL is considered anegative risk factor for CHD. Cholesterol, Total 177 mg/dL (Normal) Range: 100-199 Triglycerides 186 mg/dL (Abnormal) Range: 0-149 46-Hby-526402:42 MICROALBUMIN: CREATININE RATIO Comments: PATIENT WAS FASTINGPERFORMED BY: Blink.comM[facility] Northern Michigan6370 [facility] [id number] (87107) AND (11247) Microalb/Creat Ratio 59.4 {mg/g_creat} (Abnormal) Range: 0.0-30.0 Microalbumin, Urine 101.5 ug/mL (Abnormal) Range: 0.0-17.0 Creatinine, Urine 170.9 mg/dL (Normal) Range: 22.0-328.0 :13 Blood Glucose , Office (43300) Blood Glucose , Office 110 (Normal) :13 HgA1C , Office (89616) HgA1C , Office 6.2 % (Normal) Range: 4.6 - 7.1 :21 METABOLIC PANEL, COMPREHENSIVE Comments: PATIENT WAS FASTINGPERFORMED BY: [facility]6370 [facility] [id number] (61168) ALT (SGPT) 37 [iU]/L (Normal) Range: 0-44 [...] mg/dL (Abnormal) Range: 65-99 :21 LIPID PANEL (41519) Comments: PATIENT WAS FASTINGPERFORMED BY: WejoSaint Clare's Hospital at SussexRzwkfs5110 [facility] [id number] LDL/HDL Ratio 2.6 {ratio_units} (Normal) Range: 0.0-3.6 LDL Cholesterol Calc 81 mg/dL (Normal) Range: 0-99 VLDL Cholesterol Jose De Jesus 33 mg/dL (Normal) Range: 5-40 Cholesterol, Total 145 mg/dL (Normal) Range: 100-199 HDL Cholesterol 31 mg/dL (Abnormal) Comments: According to ATP-III Guidelines, HDL-C >59 mg/dL is considered anegative risk factor for CHD. Triglycerides 167 mg/dL (Abnormal) Range: 0-149 :21 CBC WITH MANUAL DIFF Comments: PATIENT WAS FASTINGPERFORMED BY: WejoSaint Clare's Hospital at SussexHhqaji1046 [facility] [id number] Information: [id number] (57799) Immature Grans (Abs) 0.0 {x10E3/uL} (Normal) Range: [...] (PROSTATE SPECIFIC Comments: PATIENT WAS FASTINGPERFORMED BY: [facility]6370 [facility] [id number] ANTIGEN) (V76.44) Prostate Specific Ag, 0.6 ng/mL (Normal) Range: 0.0-4.0 Serum Comments: [employer] ECLIA methodology. .According to the [place] [employer], Serum PSA shoulddecrease and remain [...] of malignant disease. :27 HgA1C , Office (59629) HgA1C , Office 6.0 % (Normal) Range: 4.6 - 7.1 :27 Blood Glucose , Office (63154) Blood Glucose , Office 114 (Normal) Comments: fasting :21 MICROALBUMIN: CREATININE RATIO Comments: PATIENT WAS FASTINGPERFORMED BY: [employer]6370 [facility] [id number] (77117) AND (81840) Microalb/Creat Ratio 60.1 {mg/g_creat} (Abnormal) Range: 0.0-30.0 Creatinine, Urine 111.1 mg/dL (Normal) Range: 22.0-328.0 Microalbumin, Urine 66.8 ug/mL (Abnormal) Range: 0.0-17.0 26-Nov-20127:21 METABOLIC PANEL, COMPREHENSIVE Comments: PATIENT WAS FASTINGPERFORMED BY: [employer]6370 [facility] [id number] (83753) ALT (SGPT) 26 [iU]/L (Normal) Range: 0-44 [...] mg/dL (Abnormal) Range: 65-99 :21 LIPID PANEL (69008) Comments: PATIENT WAS FASTINGPERFORMED BY: [employer]70 [facility] [id number] LDL/HDL Ratio 4.6 {ratio_units} (Abnormal) Range: 0.0-3.6 [...] MANUAL DIFF Comments: PATIENT WAS FASTINGPERFORMED BY: [employer]6370 [facility] [id number] Information: [id number] (88690) Immature Grans (Abs) 0.0 {x10E3/uL} (Normal) Range: [...] (Normal) Range: 4.0-10.5 :38 HgA1C , Office (39395) HgA1C , Office 6.2 % (Normal) Range: 4.6 - 7.1 :38 Blood Glucose , Office (55037) Blood Glucose , Office 117 (Normal) :31 LIPID PANEL (28415) Comments: PATIENT WAS FASTINGPERFORMED BY: [employer] [facility] [id number] LDL/HDL Ratio 2.6 {ratio_units} (Normal) Range: 0.0-3.6 [...] FUNCTION PANEL Comments: PATIENT WAS FASTINGPERFORMED BY: [employer] Wkgzlp8448 [facility] [id number] Information: [id number] (92087) ALT (SGPT) 37 [iU]/L (Normal) Range: 0-44 AST (SGOT) 33 [iU]/L (Normal) Range: 0-40 Alkaline Phosphatase, S 99 [iU]/L (Normal) Range: 25-150 Bilirubin, Direct 0.21 mg/dL (Normal) Range: 0.00-0.40 Bilirubin, Total 0.8 mg/dL (Normal) Range: 0.0-1.2 Albumin, Serum 4.5 g/dL (Normal) Range: 3.5-5.5 Protein, Total, Serum 7.0 g/dL (Normal) Range: 6.0-8.5 :43 HgA1C , Office (05409) HgA1C , Office 6.4 % (Normal) Range: 4.6 - 7.1 :43 Blood Glucose , Office (19790) Blood Glucose , Office 111 (Normal) Comments: fasting :19 Microscopic Examination Comments: PATIENT WAS FASTINGPERFORMED BY: [employer] [facility] [id number] Bacteria None seen (Normal) Mucus Threads Present (Normal) Epithelial Cells (non renal) 0-10 {/hpf} (Normal) Range: 0 - 10 RBC 0-3 {/hpf} (Normal) Range: 0 - 3 WBC 0-5 {/hpf} (Normal) Range: 0 - 5 :19 URINALYSIS, W/ MICRO (37149) Comments: PATIENT WAS FASTINGPERFORMED BY: [facility] [id number] Microscopic Examination See below: (Normal) Nitrite, Urine Negative (Normal) Urobilinogen,Semi-Qn 0.2 mg/dL (Normal) Range: 0.0-1.9 Bilirubin Negative (Normal) Occult Blood Negative (Normal) Ketones Negative (Normal) Glucose Negative (Normal) Protein 1+ (Abnormal) WBC Esterase Negative (Normal) Appearance Clear (Normal) pH 6.0 (Normal) Range: 5.0-7.5 Urine-Color Yellow (Normal) Specific [place] 1.024 (Normal) Range: 1.005-1.030 :19 MICROALBUMIN: CREATININE RATIO Comments: PATIENT WAS FASTINGPERFORMED BY: [facility] RoadDublin [place] [id number] (11700) AND (77628) Creatinine, Urine 283.0 mg/dL (Normal) Range: 22.0-328.0 Microalb/Creat Ratio 68.6 {mg/g_creat} (Abnormal) Range: 0.0-30.0 Microalbumin, Urine 194.0 ug/mL (Abnormal) Range: 0.0-17.0 97-Mxz-20454:19 METABOLIC PANEL, COMPREHENSIVE Comments: PATIENT WAS FASTINGPERFORMED BY: LabCoSaint Clare's Hospital at SussexEhpgiz7824 [facility] [id number] (60985) ALT (SGPT) 43 [iU]/L (Normal) Range: 0-55 [...] Glucose, Serum 113 mg/dL (Abnormal) Range: 65-99 :19 LIPID PANEL (41319) Comments: PATIENT WAS FASTINGPERFORMED BY: [employer] Ssliku6162 [facility] [id number] LDL/HDL Ratio 3.8 {ratio_units} (Abnormal) Range: 0.0-3.6 LDL Cholesterol Calc 126 mg/dL (Abnormal) Range: 0-99 VLDL Cholesterol Jose De Jesus 48 mg/dL (Abnormal) Range: 5-40 HDL Cholesterol 33 mg/dL (Abnormal) Comments: According to ATP-III Guidelines, HDL-C >59 mg/dL is considered anegative risk factor for CHD. Triglycerides 241 mg/dL (Abnormal) Range: 0-149 Cholesterol, Total 207 mg/dL (Abnormal) Range: 100-199 90-Hyy-34132:19 CBC WITH MANUAL DIFF Comments: PATIENT WAS FASTINGPERFORMED BY: [facility] Yfybja8298 [facility] [id number] Information: [id number] (23871) Immature Grans (Abs) 0.0 {x10E3/uL} (Normal) Range: [...] (Normal) Range: 4.0-10.5 :00 HgA1C , Office (05125) HgA1C , Office 6.1 % (Normal) Range: 4.6 - 7.1 :00 Blood Glucose , Office (81377) Blood Glucose , Office 134 (Normal) :35 HgA1C , Office (39899) HgA1C , Office 6.4 % (Normal) Range: 4.6 - 7.1 :35 Blood Glucose , Office (97527) Blood Glucose , Office 129 (Normal) :00 Comp. Metabolic Panel (14) Comments: PATIENT WAS FASTINGPERFORMED BY: LabCoSaint Clare's Hospital at SussexYxpdmj7594 [facility] [id number] ALT (SGPT) 44 [iU]/L (Normal) Range: 0-55 [...] With LDL/HDL Comments: PATIENT WAS FASTINGPERFORMED BY: [employer]6370 [facility] [id number] Ratio LDL/HDL Ratio 3.3 {ratio_units} (Normal) Range: 0.0-3.6 LDL Cholesterol Calc 109 mg/dL (Abnormal) Range: 0-99 VLDL Cholesterol Jose De Jesus 40 mg/dL (Normal) Range: 5-40 HDL Cholesterol 33 mg/dL (Abnormal) Comments: According to ATP-III Guidelines, HDL-C >59 mg/dL is considered anegative risk factor for CHD. Triglycerides 200 mg/dL (Abnormal) Range: 0-149 Cholesterol, Total 182 mg/dL (Normal) Range: 100-199 :24 HgA1C , Office (37612) HgA1C , Office 6.1 % (Normal) Range: 4.6 - 7.1 :24 Blood Glucose , Office (97640) Blood Glucose , Office 105 (Normal) :13 MICROALBUMIN: CREATININE RATIO Comments: PATIENT WAS FASTINGPERFORMED BY: [employer]70 [facility] [id number] (95792) AND (74156) Microalb/Creat Ratio 114.0 {mg/g_creat} (Abnormal) Range: 0.0-30.0 Microalbumin, Urine 234.0 ug/mL (Abnormal) Range: 0.0-17.0 Creatinine, Urine 205.3 mg/dL (Normal) Range: 22.0-328.0 28-May-20119:13 Metabolic Panel, Basic Comments: PATIENT WAS FASTINGPERFORMED BY: [employer] - OnvelopSaint Clare's Hospital at SussexIpclfp5571 [facility] [id number] Information: [id number] (35541) Calcium, Serum 9.6 mg/dL (Normal) Range: 8.7-10.2 [...] Glucose, Serum 121 mg/dL (Abnormal) Range: 65-99 47-Vyh-692751:09 Creatinine Clearance Comments: PERFORMED BY: [facility]6370 [facility] [id number] Information: 03/30@8AM 03/31@630AM Creatinine Clearance 104 mL/min [...] Protein Total, Qn, 24-Hr Comments: PERFORMED BY: [facility]At[facility] [id number]; appt 04/03/11 Urine Prot,24hr calculated 382.3 {mg/24_hr} (Abnormal) Range: 30.0-150.0 Protein,Total,Urine 13.9 mg/dL (Normal) Range: 0.0-15.0 :13 LIPID PANEL (78805) Comments: in three months (approximately); PATIENT WAS FASTINGPERFORMED BY: [facility]BaseSelect [facility] [id number] LDL/HDL Ratio 4.6 {ratio_units} (Abnormal) Range: 0.0-3.6 [...] three months (approximately); PATIENT WAS FASTINGPERFORMED BY: [facility] RoadDublin [place] [id number] Information: [id number] (12990) ALT (SGPT) 53 [iU]/L (Normal) Range: 0-55 AST (SGOT) 38 [iU]/L (Normal) Range: 0-40 Alkaline Phosphatase, S 87 [iU]/L (Normal) Range: 25-150 Bilirubin, Direct 0.13 mg/dL (Normal) Range: 0.00-0.40 Bilirubin, Total 0.5 mg/dL (Normal) Range: 0.0-1.2 Albumin, Serum 4.3 g/dL (Normal) Range: 3.5-5.5 Protein, Total, Serum 6.8 g/dL (Normal) Range: 6.0-8.5 :30 Metabolic Panel, Basic Comments: 2 weeks; PATIENT NOT FASTINGPERFORMED BY: [facility] [id number] Information: [id number] (35737) Calcium, Serum 9.6 mg/dL (Normal) Range: 8.7-10.2 [...] (Abnormal) Range: 65-99 :59 HgA1C , Office (43585) HgA1C , Office 6 % (Normal) Range: 4.6 - 7.1 :04 Microscopic Examination Comments: PATIENT WAS FASTINGPERFORMED BY: [employer] Eiejim5784 [facility] [id number] Bacteria None seen (Normal) Mucus Threads Present (Normal) Epithelial Cells (non renal) None seen {/hpf} (Normal) Range: 0 - 10 RBC 0-3 {/hpf} (Normal) Range: 0 - 3 WBC 0-5 {/hpf} (Normal) Range: 0 - 5 :04 Protein Electro, Random Urine Comments: PATIENT WAS FASTINGPERFORMED BY: [employer] Qexuqz2633 [facility] [id number] Please note: SPRCS (Normal) Comments: Protein electrophoresis scan will follow via computer, mail, orcourier delivery. M-Jozef, % Not Observed % (Normal) Beta Globulin, U 8.1 % (Normal) Gamma Globulin, U 4.8 % (Normal) Ycvhw-2-Uyhnizjk, U 4.2 % (Normal) Dpeld-6-Yggyhvqw, U 3.9 % (Normal) Albumin, U 79.0 % (Normal) Protein,Total,Urine 70.0 mg/dL (Abnormal) Range: 0.0-15.0 :04 Protein Electro.,S Comments: PATIENT WAS FASTINGPERFORMED BY: [employer] Feozwk3913 [facility] [id number] Information: [id number] Please note: SPRCS (Normal) Comments: Protein electrophoresis scan will follow via computer, mail, orcourier delivery. A/G Ratio 1.3 (Normal) Range: 0.7-2.0 Globulin, Total 3.1 g/dL (Normal) Range: 2.0-4.5 M-Jozef Not Observed g/dL (Normal) Gamma Globulin 0.9 g/dL (Normal) Range: 0.5-1.6 Beta Globulin 1.0 g/dL (Normal) Range: 0.6-1.3 Wmlvh-9-Jcmhyakz 0.3 g/dL (Normal) Range: 0.1-0.4 Veiru-8-Tkkdigme 1.0 g/dL (Normal) Range: 0.4-1.2 Albumin 4.1 g/dL (Normal) Range: 3.2-5.6 Protein, Total, Serum 7.2 g/dL (Normal) Range: 6.0-8.5 Written Authorization WAR (Normal) Comments: PATIENT WAS FASTINGPERFORMED BY: Wejo Cbzfnk7002 [facility]RockAt[facility] [id number] :04 Comments: Written Authorization Received.Authorization received from CHARLEE CUELLAR [id number] by Nkechi Shaw :04 PSA (PROSTATE SPECIFIC Comments: PATIENT WAS FASTINGPERFORMED BY: [employer]6370 BrysonGreenmonsterAtrium Health [facility] [id number] ANTIGEN) (V76.44) Prostate Specific Ag, 0.8 ng/mL (Normal) Range: 0.0-4.0 Serum Comments: [employer] ECLIA methodology. .According to the [place] [employer], Serum PSA shoulddecrease and remain [...] CREATININE RATIO Comments: PATIENT WAS FASTINGPERFORMED BY: [employer] Ruvhth0942 [facility] [id number] (51927) AND (76051) Microalb/Creat Ratio 277.7 {mg/g_creat} (Abnormal) Range: 0.0-30.0 Microalbumin, Urine 535.4 ug/mL (Abnormal) Range: 0.0-17.0 Creatinine, Urine 192.8 mg/dL (Normal) Range: 22.0-328.0 :04 URINALYSIS, W/ MICRO (94642) Comments: PATIENT WAS FASTINGPERFORMED BY: [employer] Qhjddq1796 [facility] [id number] Microscopic Examination See below: (Normal) Nitrite, Urine Negative (Normal) Urobilinogen,Semi-Qn 0.2 mg/dL (Normal) Range: 0.0-1.9 Bilirubin Negative (Normal) Occult Blood Negative (Normal) Ketones Negative (Normal) Glucose Negative (Normal) Protein 2+ (Abnormal) WBC Esterase Negative (Normal) Appearance Clear (Normal) Urine-Color Yellow (Normal) pH 6.0 (Normal) Range: 5.0-7.5 Specific [place] 1.024 (Normal) Range: 1.005-1.030 98-Zjq-44966:04 METABOLIC PANEL, COMPREHENSIVE Comments: PATIENT WAS FASTINGPERFORMED BY: LabCoSaint Clare's Hospital at SussexXtywym5507 [facility] [id number] (17817) ALT (SGPT) 23 [iU]/L (Normal) Range: 0-55 [...] Glucose, Serum 116 mg/dL (Abnormal) Range: 65-99 :04 LIPID PANEL (11995) Comments: PATIENT WAS FASTINGPERFORMED BY: [employer] - OnvelopSaint Clare's Hospital at SussexIzdqkt1744 [facility] [id number] LDL/HDL Ratio 5.7 {ratio_units} (Abnormal) Range: 0.0-3.6 LDL Cholesterol Calc 194 mg/dL (Abnormal) Range: 0-99 Comments: Possible Familial Hypercholesterolemia. FH should be suspected whenfasting LDL cholesterol is above 189 mg/dL or non-HDL cholesterolis above 219 mg/dL. A family history of high cholesterol and heartdise ase in 1st degree relatives should be collected. J Clin Zoqntha9685;5:133-140 VLDL Cholesterol Jose De Jesus 69 mg/dL (Abnormal) Range: 5-40 HDL Cholesterol 34 mg/dL (Abnormal) Comments: According to ATP-III Guidelines, HDL-C >59 mg/dL is considered anegative risk factor for CHD. Triglycerides 346 mg/dL (Abnormal) Range: 0-149 Cholesterol, Total 297 mg/dL (Abnormal) Range: 100-199 :04 CBC WITH MANUAL DIFF Comments: PATIENT WAS FASTINGPERFORMED BY: [employer] - OnvelopSaint Clare's Hospital at SussexXaprav9722 [facility] [id number] Information: [id number] (70433) Immature Grans (Abs) 0.0 {x10E3/uL} (Normal) Range: [...] Details Instructions Hypertension with heart disease : BP MONITORING [...] (chronic kidney disease), stage III : Reviewed [employer] Letter Indication: CKD (chronic kidney disease), stage III Type 2 diabetes mellitus without complication : Reviewed Lab Indication: Type 2 diabetes mellitus without complication Hypercholesteremia : Cholesterol mgmt Indication: Hypercholesteremia Hypertension with heart disease : HTN/CAD Red Flags Indication: Hypertension with heart disease Coronary artery disease, non-occlusive : Reviewed [employer] Letter Indication: Coronary artery disease, non-occlusive Coronary artery disease, non-occlusive : Continue Current Prescription(s) Indication: Coronary artery disease, non-occlusive Type 2 diabetes mellitus without complication : Follow up in 3 months Indication: Type 2 diabetes mellitus without complication Type 2 diabetes mellitus without complication : Reviewed Lab Indication: Type 2 diabetes mellitus without complication Coronary artery disease, non-occlusive : Reviewed [employer] Letter Indication: Coronary artery disease, non-occlusive Hypertension [...] non-occlusive Coronary artery disease, non-occlusive : Reviewed [employer] Letter Indication: Coronary artery disease, non-occlusive Type 2 diabetes mellitus without complication : Eprescribed prescriptions (G8553) Indication: Type 2 diabetes mellitus without complication Type 2 diabetes mellitus without complication : Follow up in 3 months Indication: Type 2 diabetes mellitus without complication Coronary artery disease, non-occlusive : Continue Current Prescription(s) Indication: Coronary artery disease, non-occlusive Coronary artery disease, non-occlusive : Reviewed [employer] Letter- discharged Indication: Coronary artery disease, non-occlusive [...] disease Coronary artery disease, non-occlusive : Reviewed [employer] Letter Indication: Coronary artery disease, non-occlusive Type [...] Point Injections Indication: Trigger finger Planned Observations CALCIFEDIOL (51110)Indication: Vitamin D deficiency On: :20 Request TSH (67677)Indication: Type 2 diabetes mellitus without complication On: :20 Request URINALYSIS, W/ MICRO (72144)Indication: Hypertension with heart disease On: :20 Request MICROALBUMIN: CREATININE RATIO (08668) AND (72230)Indication: Hypertension with heart disease On: :20 Request METABOLIC PANEL, COMPREHENSIVE (72101)Indication: Hypertension with heart disease On: :20 Request LIPID PANEL (84281)Indication: Hypertension with heart disease On: :20 Request CBC with auto diff (49429)Indication: Hypertension with heart disease On: 25-Nov-20178:20 Request HDL CHOLESTEROL-DIRECT (45296)Indication: Hypercholesteremia On: 38-Kmi-028831:00 Request CALCIFEDIOL (68768)Indication: Vitamin D deficiency On: 71-Ijx-057389:59 Request FECAL OCCULT- Tubes sent home (21923)Indication: Encounter for screening for malignant neoplasm of colon (Renamed from Special screening for malignant neoplasms, colon) On: :48 Request CBC with auto diff (01603)Indication: Type 2 diabetes mellitus without complication On: :40 Request Comments: all in six months (approximately) MICROALBUMIN: CREATININE RATIO (76653) AND (72146)Indication: Type 2 diabetes mellitus without complication On: :40 Request METABOLIC PANEL, COMPREHENSIVE (99471)Indication: Type 2 diabetes mellitus without complication On: :40 Request LIPID PANEL (41429)Indication: Type 2 diabetes mellitus without complication On: :40 Request MICROALBUMIN: CREATININE RATIO (63746) AND (49897)Indication: Type 2 diabetes mellitus without complication On: :09 Request PSA (PROSTATE SPECIFIC ANTIGEN) (58776)Indication: Type 2 diabetes mellitus without complication On: :08 Request CBC, PLATELETS & MANUAL DIFF (44655)Indication: Type 2 diabetes mellitus without complication On: :08 Request METABOLIC PANEL, COMPREHENSIVE (31144)Indication: Type 2 diabetes mellitus without complication On: :08 Request LIPID PANEL (70998)Indication: Type 2 diabetes mellitus without complication On: :08 Request MICROALBUMIN: CREATININE RATIO (58420) AND (24887)Indication: Type 2 diabetes mellitus without complication On: :24 Request METABOLIC PANEL, COMPREHENSIVE (96153)Indication: Type 2 diabetes mellitus without complication On: :24 Request LIPID PANEL (48267)Indication: Type 2 diabetes mellitus without complication On: :24 Request CBC W/AUTO DIFF WBC (59738)Indication: Type 2 diabetes mellitus without complication On: :24 Request Lipid Panel (77778)Indication: Benign essential HTN On: :48 Request Metabolic Panel, Comprehensive (87744)Indication: Benign essential HTN On: :48 Request 24 hour urine for Protein (39108)Indication: Benign essential HTN On: :16 Request UPEP (94991)Indication: Proteinuria On: :09 Request SPEP (76260)Indication: Proteinuria On: :09 Request Planned Encounters Medical; 3 Month FU - On: 20-May-2018 8:00 [facility] Jessica Redmond DO, DO, Kathleen Planned Procedures ELECTROCARDIOGRAM, COMPLETE (ECG) On: 17-Feb-2018 Intent (33699)By: Jessica Redmond DO Comments: nsr LBBB-old, no acute chg DO, Jessica COMPLETE ULTRASOUND OF KIDNEY On: 03-Dec-2017 Intent (02794)By: Jessica Redmond DO Comments: b/l DO, Jessica ELECTROCARDIOGRAM, COMPLETE (ECG) On: 15-Apr-2017 Intent (93122)By: Jessica Redmond DO Comments: nsr - LBBB-old DO, Jessica Flu Vaccine (Quadrivalent) 24910Be: On: 15-Apr-2017 Intent Jessica Redmond DO, DO, Comments: Lot #[id number]/07/17ite-L dltd, IMDose prefilled syringegiven by:TAWNYA RothNCELESTINO and ABN signed Jessica ELECTROCARDIOGRAM, COMPLETE (ECG) On: 12-May-2016 Intent (56594)By: Jessica Redmond DO Comments: nsr LBBB- - no acute chg DO, Jessica Flu Vaccine (Quadrivalent) 39107Ju: On: 12-May-2016 Intent Jessica Redmond DO, DO, Comments: Lot #[id number]/30/17ite-L dltd, IMDose prefilled syringegiven by:MLesthela LPNVIS and ABN signed Jessica CT - Chest (Without Contrast)By: On: 09-Nov-2015 Intent Charlee Cuellar MD Comments: LDCT 30 plus year history TDAP VACCINE >7 IM (31858)By: Edmond On: 11-May-2015 Intent Charlee LARA Comments: boostrixlot [id number] 10.9.17L Dltd, IMPrefilled syringeMegan JULIANNE Munroe signed ADMINISTRATION OF INFLUENZA VIRUS On: 11-May-2015 Intent VACCINE (G0008)By: Charlee Cuellar MD Flu Vaccine (Quadrivalent) 55832Xj: On: 11-May-2015 Intent Charlee Cuellar MD Comments: Lot #:[id number] date:Amount given:0.5mlRoute: IMSite given:L DltdGiven by: Iris TIRADO and ABN signed Quad Flu Flu Vaccine (Quadrivalent) 11149Jv: On: 12-May-2014 Intent Cahrlee Cuellar MD ADMINISTRATION OF INFLUENZA VIRUS On: 12-May-2014 Intent VACCINE (G0008)By: Charlee Cuellar MD EKG (38028)By: Charlee Cuellar MD On: 10-Feb-2014 Intent Comments: see scanned document of test done to see results reviewed today with patient Nuclear Stress Test/Stress On: 10-Feb-2014 Intent SPECT/TreadmillBy: Charlee Cuellar MD Eprescribed prescriptions (G8553)By: On: 10-Nov-2013 Intent Charlee Cuellar MD Nuclear Stress Test/Stress On: 05-May-2013 Intent SPECT/TreadmillBy: Charlee Cuellar MD EKG (72493)By: Charlee Cuellar MD On: 05-May-2013 Intent Comments: see scanned document of test done to see results reviewed today with patient Eprescribed prescriptions (G8553)By: On: 03-Dec-2012 Intent Manchak, Debbie FLU VAC, SPLIT, >3 YEARS, INTRAMUSC On: 23-Apr-2012 Intent (25398)By: Iris Munroe LPN Comments: declined ELECTROCARDIOGRAM, COMPLETE (ECG) On: 23-Apr-2012 Intent (84804)By: Iris Munroe LPN IMMUNIZ ADMNIN, 1 VAC, SNGL/COMBO On: 23-Apr-2012 Intent (00042)By: Iris Munroe LPN Eprescribed prescriptions ([id number])By: On: 23-Apr-2012 Intent Iris Munroe LPN FLU VAC, SPLIT, >3 YEARS, INTRAMUSC On: 03-Apr-2011 Intent (33729)By: Iris Munroe LPN Comments: DECLINED IMMUNIZ ADMNIN, 1 VAC, SNGL/COMBO On: 03-Apr-2011 Intent (32493)By: Iris Munroe LPN Nuclear Stress Test/Stress On: 28-Feb-2011 Intent SPECT/TreadmillBy: Charlee Cuellar MD Echo CompleteBy: Charlee Cuellar MD On: 28-Feb-2011 Intent EKG (72216)By: hCarlee Cuellar MD On: 28-Feb-2011 Intent Instructions Name Dates Details BMI 30.0-30.9,adult : How to access health [...] Other abnormal glucose Encounters Office Visit On: 24-Mar-2018 8:03 Encounter Reason: [...] for Tdap vaccination (Renamed from Need for fpqousauzr-lgusqdi-grotwdfgo (Tdap) vaccine, adult/adolescent) [facility] [...] Encounter Reason: Follow up tests - Date: (04.14.12)., [ADDITIONAL REASON] Follow up for chronic medical [...] Male Exam (V70.0) [facility] Payers Terrance WASHINGTON/Ebenezer Jeff; a guarantor
--- OUTSIDE RECORDS SUMMARY | 2018-07-19 02:05 | XMS RPT_ITS ---
:1960 Author Organization OHIP Care Team Providers Name Role Phone Jessica Redmond DO Attending Unavailable Ruy DO, Jessica Referring Unavailable Ruy DO, Jessica Consulting Unavailable [place]ali, [place] Attending Unavailable Ruy, Jessica Referring Unavailable Ruy, Jessica Attending Unavailable Ruy, Jessica Referring Unavailable Ruy, Jessica Primary Care Unavailable Ruy, Jessica Attending Unavailable Ruy, Jessica Referring Unavailable Ruy, Jessica Primary Care Unavailable PROBLEMS PROBLEMS DATE TYPE CONDITION / CODE ATTENDING STATUS SOURCE 06/28/2018 Unknown I25.10 - Ruy, Active [place] Atherosclerotic heart Jessica [facility] coronary artery Repository without angina pectoris / I25.10(ICD-10) PROCEDURES PROCEDURES No Procedure Records FoundRESULTS RESULTS STRESS REPORT Observed: 06/02/2018 Status: F Source: [place] 9:17 AM [facility] REPOSITORY [facility] Cardiovascular Services [address] [place] [address] MR#: [id number] Acct: [id number] Name: Neha MURPHY Rep #: [id number] : 1960 57 From: Alfredo Mcnally MD Primary Care: Jessica Redmond DO Status: REG CLI Ordering Dr: Chandra Bell Stress Test Report Exercise myocardial perfusion stress testing. 57-year-old lady with a history of coronary artery disease. Medications: Metoprolol, losartan, hydrochlorothiazide, aspirin,. He has stress protocol: Resting EKG demonstrates normal sinus rhythm with a rate of 66 bpm and left bundle branch block resting blood pressure 142/90 mmHg. The patient exercised according to the regular Alberto protocol for total duration of 8 minutes and 30 seconds completing 2 minutes and 30 seconds into stage III of the Alberto protocol. The maximum heart rate attained was 155 bpm which was 95% of maximum predicted heart rate maximum workload was 10.[address] At [address] changes noted for left bundle branch block were present at peak exercise ST changes for the same were present. The resting blood pressure was 142/90 with a peak blood pressure 180/72. No clinical angina was noted the test was terminated due to leg fatigue Myocardial perfusion protocol. 14.7 mCi of Rn Primary Care 99 sestamibi was injected at rest. The patient exercised according to regular Alberto protocol for 8-1/2 minutes at peak exercise 44.3 mCi of technetium 99m sestamibi was injected stress images were obtained stress and rest images were reconstructed and compared in the short axis vertical long horizontal long axis. Gated images were also obtained the next Perfusion SPECT analysis. Review of the images demonstrate normal perfusion noted in the septum lateral wall anterior wall and inferior wall. A small portion of the anterior septal wall and distal anterolateral wall appeared to have mild reduction of perfusion on the stress images and the resting images to a similar extent. The above may be secondary to a left bundle branch block abnormality no obvious ischemia is noted. Gated SPECT analysis: The gated ejection fraction is noted to be 67% with an IVCD patent. Conclusion: Normal exercise myocardial perfusion stress test at a high workload no obvious ischemia noted. Preserved ejection fraction. 06/02/18916 <Electronically signed by Alfredo Mcnally MD> Date Alfredo Mcnally MD CC: Jessica Redmond DO Date Dictated: 06/02/18913 Date Transcribed: 06/02/18913 Yarn Salvager: [place] Signed KIDNEY AND BLADDER Observed: 12/08/2017 Status: F Source: [place] 12:21 PM [facility] REPOSITORY [facility] Imaging Services [address] [place] [address] Kidney and Bladder MR#: [id number] Acct: [id number] Name: Neha MURPHY Rep #: [id number] : 1960 M 57 From: Gilberto Eli MD PCP: Jessica Redmond DO Status: REG CLI Study: Kidney and Bladder Date of Exam: 12/08/17 Exam# [id number] Ordering Dr: Jessica Redmond DO STUDY: RENAL ULTRASOUND - COMPLETE REASON FOR EXAM: Male, 57 years old. TECHNIQUE: Ultrasound evaluation of the kidneys was performed with real-time and static oliveros-scale imaging. COMPARISON: None. FINDINGS: RIGHT KIDNEY: Normal location of the right kidney, which is normal in size. The right kidney measures 11.1 x 5.4 x 3.9 cm. There is a normal cortex of the right kidney. The renal cortex measures 1.5 cm. A small 1 cm cyst. There are no right renal calculi. There is no right hydronephrosis. LEFT KIDNEY: Normal location of the left kidney, which is normal in size. The left kidney measures 10.5 x 4.9 x 5.2 cm. There is a normal cortex of the left kidney. The renal cortex measures 1.8 cm. 1.8 cm cyst There are no left renal calculi. There is no left hydronephrosis. BLADDER: The distended urinary bladder has a volume of 459 ml. The empty urinary bladder has a volume of ml. There is a normal wall thickness of the distended urinary bladder. There is no demonstrated mass within the urinary bladder. There are no demonstrated bladder calculi. US/Kidney and Bladder IMPRESSION: Bilateral small renal cysts. No hydronephrosis. The urinary bladder fills well to a capacity of almost 460 mL Electronically Signed: Gilberto Eli, at 7:26 EDT Tel , Service support , CC: Jessica Redmond DO Yarn Salvager: Signed ALLERGIES ALLERGIES No Allergies Records FoundENCOUNTERS ENCOUNTERS ADMIT/DISCHARGE ACCOUNT ADMITTING ENCOUNTER LOCATION SOURCE NUMBER CLASS 06/02/2018 [id number] Ambulatory BMSBuilding:[place] [facility] Repository 06/02/2018 [id number] Ambulatory [place] 6 [facility] ing:[facility] Repository 05/20/2018 [id number] Ambulatory Building:[facility] Repository 12/08/2017 [id number] [place] [facility] ing:US Repository PAYERS PAYERS ENCOUNTER GUARANTOR PAYER SUBSCRIBER SOURCE 06/02/2018 A AYDEN Primary [place] [id number] [address] Insurance:AULTCAREPol BARBERADOB: [facility]: [id number] [address]Fqq: [id number] Repository e Date:8032-34-55BG () [address], [place] [address]MV: 06/02/2018 Secondary A AYDEN [place] [facility] BARBERADOB: [facility] Number: [id number] Hospital [id number] Repository Date:2018-06-02 06/02/2018 Tertiary NOT GIVENUNK [place] Insurance:SELF PAY [facility] Number: Effective Repository Date:2018-06-02 06/02/2018 A AYDEN Primary [place] [id number] Insurance:AULTCAREPol BARBERADOB: [facility] Number: [id number] [address]Arr: [id number] Repository e Date:1145-34-55CC () [address], [place] [address]UY: 06/02/2018 Secondary A AYDEN [place] Insurance[facility] P[facility] BARBERADOB: [facility] [id number] [facility] [id number] Repository Date:2018-05-21 06/02/2018 Tertiary NOT GIVENUNK [place] Insurance:SELF PAY [facility]: Effective Repository Date:2018-05-21 05/20/2018 Ayden Primary [place] OHIP Practices BarberaDOB: Insurance:AultcarePol Carter-BarberaDOB: Repository E icy Number: [id number] [id number] E [place], [place] e Date:4772-41-51Byop [address]Pdj: [phone]: ([phone]) Name:[phone] () [phone] [place] [address] ()Tel: [phone]: [phone] 05/20/2018 Secondary [place] OHIP Practices Insurance:[place] BarberaDOB: Repository /BSPolicy Number: [id number] E Main Date: - [place], [place] [id number] [address]Qun: (872) Name:[phone] () [id number], [place] [id number]: 05/20/2018 Tertiary [place] [facility]IP Practices Insurance:[place] Carter-BarberaDOB: Repository /BSPolicy Number: [id number] E [place], [place] ye Date:2017-06-22 [address]Ywa: [phone] [id number] [phone] () Name:[address], [place] [id number]: 12/08/2017 A Ayden Primary SHELLEY Jodie [id number] Insurance:ANTHEMPolic BARBERADOB: [facility], Number: [id number] [facility] [address]Vsc: [id number] Repository ye Date:3351-30-30YQ () [address], [place] [address]DF: 12/08/2017 Secondary NOT GIVENUNK [place] Insurance:SELF PAY [facility] Number: Effective Repository Date:2017-12-04
--- OUTSIDE RECORDS SUMMARY | 2018-07-19 02:05 | XMS RPT_ITS | Continuity of Care Document ---
:1960 Author Organization [facility] Address [facility] 2 [place] [address] Phone Care Team Providers Name Role Phone Jessica Redmond DO Unavailable TimboArpitaon Unavailable Gravius, Mar Unavailable Unavailable Long COMPOUND WORKER, Iris L Unavailable Unavailable Emick, Federico Unavailable [...] days Quantity: 30 {Tablet} Refills: 3 Ordered:17-Feb-2018 Long COMPOUND WORKER, Iris L Start : 17-Feb-2018 Active MetFORMIN HCl 500 MG Oral Tablet 1 (one) Tablet bid for 0 days Quantity: 180 {Tablet} Refills: 0 Ordered:08-Mar-2018 Shelley Redmond DO, DO, Kathleen Start : 08-Mar-2018 Active Metoprolol Succinate ER 50 MG Oral Tablet Extended Release 24 Hour 1 Tablet ER 24HR at night for 0 days Quantity: 90 {Tablet} Refills: 3 Ordered:17-Feb-2018 Shelley Redmond DO, DO, Kathleen Start : 17-Feb-2018 Active CHANTIX CONTINUING MONTH [...] Quantity: 90 {Tablet} Refills: 0 Ordered:24-Mar-2018 Long COMPOUND WORKER, Iris L Start : 15-Mar-2018 End : [...] for Tdap vaccination (Renamed from Need for auzgdbibfy-wkravth-nwkqhzqlk (Tdap) vaccine, adult/adolescent) (Z23, V06.1) Status: Inactive [...] 5 years Date Value Details 11-May-2015 EKG (17460) Result: [MEASUREMENTS ANALYSIS] Date of Test: 05/11/2015 07:26:19; Heart Rate: 67; UT Interval: 176; QRS: 140; QT Interval: 414; Corrected QT Interval (QTc): 426; P Wave [place]: 58; QRS Wave [place]: -45; T Wave Axi s: 70; Blood [...] Description Value Details :49 HgA1C , Office (94811) HgA1C , Office 6.1 % (Normal) Range: 4.6 - 7.1 :49 Blood Glucose , Office (62629) Blood Glucose , Office 135 (Normal) :49 HgA1C , Office (82906) HgA1C , Office 5.9 % (Normal) Range: 4.6 - 7.1 :49 Blood Glucose , Office (09687) Blood Glucose , Office 115 (Normal) :26 POTASSIUM SERUM (78665) Comments: PATIENT NOT FASTINGPERFORMED BY: Quantifind [facility] [id number] Potassium 4.5 mmol/L (Normal) Range: 3.5-5.2 :52 Albumin/Creatinine Ratio,Urine Comments: PATIENT WAS FASTINGPERFORMED BY: Wrigglelin6370 [facility] [id number] Alb/Creat Ratio 22.6 {mg/g_creat} (Normal) Range: 0.0-30.0 Albumin, Urine 12.8 ug/mL (Normal) Creatinine, Urine 56.6 mg/dL (Normal) :52 CBC With Differential/Platelet Comments: PATIENT WAS FASTINGPERFORMED BY: SQLstreamRiverview Medical CenterAvvixs2303 [facility] [id number] Information: CLIENT INTERNET DOWN Immature Grans (Abs) [...] 4.14-5.80 WBC 7.8 {x10E3/uL} (Normal) Range: 3.4-10.8 09-Guj-229540:52 Comp. Metabolic Panel (14) Comments: PATIENT WAS FASTINGPERFORMED BY: LabCoRiverview Medical CenterGmqsaw5818 [facility] [id number] ALT (SGPT) 29 [iU]/L (Normal) Range: 0-44 [...] 6-24 Glucose 110 mg/dL (Abnormal) Range: 65-99 51-Qhq-651409:52 Lipid Panel With LDL/HDL Comments: PATIENT WAS FASTINGPERFORMED BY: [facility] [id number] Ratio LDL/HDL Ratio 1.4 {ratio} (Normal) Range: [...] Cholesterol, Total 105 mg/dL (Normal) Range: 100-199 50-Whf-786867:52 Microscopic Examination Comments: PATIENT WAS FASTINGPERFORMED BY: Quickfilter TechnologiesAtrium Health Mercy [id number] Bacteria Few (Normal) Mucus Threads Present (Normal) Epithelial Cells (non None seen {/hpf} Range: 0 - 10 renal) (Normal) RBC None seen {/hpf} Range: 0 - 2 (Normal) WBC 0-5 {/hpf} (Normal) Range: 0 - 5 TSH 2.030 {uIU/mL} Comments: PATIENT WAS FASTINGPERFORMED BY: Quickfilter TechnologiesAtrium Health Mercy [id number] 3:52 (Normal) Range: 0.450-4.500 48-Zrb-067798:52 Urinalysis, Complete Comments: PATIENT WAS FASTINGPERFORMED BY: [facility] Hospitallin6370 [facility] [id number] Microscopic Examination See below: (Normal) Comments: Microscopic was indicated and was performed. Microscopic Examination MICRON (Normal) Comments: Microscopic follows if indicated. Nitrite, Urine Negative (Normal) Urobilinogen,Semi-Qn 0.2 mg/dL (Normal) Range: 0.2-1.0 Bilirubin Negative (Normal) Occult Blood Negative (Normal) Ketones Negative (Normal) Glucose Negative (Normal) Protein Negative (Normal) WBC Esterase Negative (Normal) Appearance Clear (Normal) Urine-Color Yellow (Normal) pH 5.5 (Normal) Range: 5.0-7.5 Specific [place] 1.014 (Normal) Range: 1.005-1.030 Vitamin D, 25-Hydroxy 71.0 ng/mL (Normal) Comments: PATIENT WAS FASTINGPERFORMED BY: [facility] Hospitallin6370 [facility] [id number] 3:52 Range: 30.0-100.0 Comments: Vitamin D deficiency has been defined by the [place] ofMedicine and an Endocrine Society practice guideline as alevel of serum 25-OH vitamin D less than 20 ng/mL (1,2).The Endocrine Society went on to further define vitamin Dinsufficiency as a level between 21 and 29 ng/mL (2).1. IOM ([place] of Medicine). 2010. Dietary reference intakes for calcium and D. [place]: The National Academies Press.2. Loki MF, Diane NC, Jessie CARTER, et al. Evaluation, treatment, and prevention of vitamin D deficiency: an Endocrine Society clinical practice guideline. JCEM. 2010; 96(7):1911-30. 94-Gtb-48151:21 MARNIE (ANTINUCLEAR ANTIBODY) Comments: PATIENT NOT FASTINGPERFORMED BY: [facility]6370 [facility] [id number] ([id number]) MARNIE Direct Negative (Normal) 64-Ihq-909106:14 Metabolic Panel, Basic Comments: PATIENT NOT FASTINGPERFORMED BY: VAZATA Qudfgz3826 [facility] [id number] (63299) Calcium 9.9 mg/dL (Normal) Range: 8.7-10.2 Carbon [...] (Abnormal) Range: 65-99 :14 HgA1C , Office (60171) HgA1C , Office 6.0 % (Normal) Range: 4.6 - 7.1 :14 Blood Glucose , Office (26028) Blood Glucose , Office 128 (Normal) 66-Oom-68471:10 Microscopic Examination Comments: PATIENT WAS FASTINGPERFORMED BY: VAZATA Dfzzzk5262 [facility] [id number] Bacteria None seen (Normal) Mucus Threads Present (Normal) Epithelial Cells (non renal) None seen {/hpf} (Normal) Range: 0 - 10 RBC 0-2 {/hpf} (Normal) Range: 0 - 2 WBC 0-5 {/hpf} (Normal) Range: 0 - 5 95-Lxq-21299:10 CALCIFEDIOL (75155) Comments: PATIENT WAS FASTINGPERFORMED BY: VAZATA Kghfew3967 [facility] [id number] Vitamin D, 25-Hydroxy 48.4 ng/mL (Normal) Range: 30.0-100.0 Comments: Vitamin D deficiency has been defined by the [place] of[place]icine and an Endocrine Society practice guideline as alevel of serum 25-OH vitamin D less than 20 ng/mL (1,2).The Endocrine Society went on to further define vitamin Dinsufficiency as a level between 21 and 29 ng/mL (2).1. IOM ([place] of Medicine). 2010. Dietary reference intakes for calcium and D. [place]: The National Academies Press.2. Loki MF, Diane WHEELER, Jessie CARTER, et al. Evaluation, treatment, and prevention of vitamin D deficiency: an Endocrine Society clinical practice guideline. JCEM. 2010; 96(7):1911-30. 16-Oxg-15998:10 LIPID PANEL (40660) Comments: PATIENT WAS FASTINGPERFORMED BY: Moleculin70 Synercon TechnologiesColumb[facility] System [id number] LDL/HDL Ratio 1.8 {ratio} (Normal) Range: 0.0-3.6 [...] Cholesterol, Total 156 mg/dL (Normal) Range: 100-199 58-Jjs-42290:10 TSH (45178) Comments: PATIENT WAS FASTINGPERFORMED BY: Bindo6370 friendfundAtrium Health Mercy [id number] TSH 3.530 {uIU/mL} (Normal) Range: 0.450-4.500 96-Tyb-94162:10 URINALYSIS, W/ MICRO (38221) Comments: PATIENT WAS FASTINGPERFORMED BY: Moleculin70 [facility] [id number] Microscopic Examination See below: (Normal) Comments: Microscopic was indicated and was performed. Microscopic Examination MICRON (Normal) Comments: Microscopic follows if indicated. Nitrite, Urine Negative (Normal) Urobilinogen,Semi-Qn 0.2 mg/dL (Normal) Range: 0.2-1.0 Bilirubin Negative (Normal) Occult Blood Negative (Normal) Ketones Negative (Normal) Glucose Negative (Normal) Protein Negative (Normal) WBC Esterase Negative (Normal) Appearance Clear (Normal) Urine-Color Yellow (Normal) pH 5.5 (Normal) Range: 5.0-7.5 Specific [place] 1.013 (Normal) Range: 1.005-1.030 77-Znu-51509:10 MICROALBUMIN: CREATININE RATIO Comments: PATIENT WAS FASTINGPERFORMED BY: SQLstream Dqzmki0909 [facility] [id number] (09988) AND (95358) Alb/Creat Ratio 28.7 {mg/g_creat} (Normal) Range: 0.0-30.0 Albumin, Urine 20.3 ug/mL (Normal) Creatinine, Urine 70.7 mg/dL (Normal) :10 METABOLIC PANEL, COMPREHENSIVE Comments: PATIENT WAS FASTINGPERFORMED BY: Bindo6370 [facility] HospitalStepsssAtrium Health [facility]cy [id number] (53817) ALT (SGPT) 42 [iU]/L (Normal) Range: 0-44 [...] Range: 65-99 :10 CBC W/AUTO DIFF WBC (98136) Comments: PATIENT WAS FASTINGPERFORMED BY: LabCo Vnzpib4238 [facility] [id number]; ov 6/6 Immature Grans (Abs) 0.0 {x10E3/uL} [...] (Normal) Range: 3.4-10.8 :00 HgA1C , Office (11967) HgA1C , Office 5.8 % (Normal) Range: 4.6 - 7.1 23-Njn-65344:00 Blood Glucose , Office (06831) Blood Glucose , Office 125 (Normal) :17 Metabolic Panel, Basic (15538) Comments: do in 1-2 weeks; PATIENT NOT FASTINGPERFORMED BY: VAZATA Edvmbf3731 [facility] [id number] Calcium, Serum 9.9 mg/dL (Normal) Range: 8.7-10.2 [...] Comments: 3mon do; PATIENT WAS FASTINGPERFORMED BY: Moleculin70 [facility] [id number] (33799) ALT (SGPT) 29 [iU]/L (Normal) Range: 0-44 AST (SGOT) 23 [iU]/L (Normal) Range: 0-40 Alkaline Phosphatase, S 57 [iU]/L (Normal) Range: 39-117 Bilirubin, Direct 0.15 mg/dL (Normal) Range: 0.00-0.40 Bilirubin, Total 0.6 mg/dL (Normal) Range: 0.0-1.2 Albumin, Serum 4.6 g/dL (Normal) Range: 3.5-5.5 Protein, Total, Serum 6.9 g/dL (Normal) Range: 6.0-8.5 :36 LIPID PANEL (33426) Comments: do in 3mon; PATIENT WAS FASTINGPERFORMED BY: Quantifind [facility] [id number] LDL/HDL Ratio 1.8 {ratio_units} (Normal) Range: 0.0-3.6 [...] (Normal) Range: 100-199 :01 HgA1C , Office (02471) HgA1C , Office 5.9 % (Normal) Range: 4.6 - 7.1 :01 Blood Glucose , Office (94054) Blood Glucose , Office 130 (Normal) :18 TSH (19858) Comments: PATIENT WAS FASTINGPERFORMED BY: [facility] Kcuskg8442 [facility] [id number] TSH 1.920 {uIU/mL} (Normal) Range: 0.450-4.500 :18 METABOLIC PANEL, COMPREHENSIVE Comments: PATIENT WAS FASTINGPERFORMED BY: [facility] Cuzhyc9123 [facility] [id number] (23079) ALT (SGPT) 27 [iU]/L (Normal) Range: 0-44 [...] mg/dL (Abnormal) Range: 65-99 :18 LIPID PANEL (63805) Comments: PATIENT WAS FASTINGPERFORMED BY: Moleculin70 friendfundAtrium Health Mercy [id number] LDL/HDL Ratio 2.0 {ratio_units} (Normal) Range: 0.0-3.6 [...] Range: 100-199 :18 CBC W/AUTO DIFF WBC (05434) Comments: PATIENT WAS FASTINGPERFORMED BY: Bindo6370 friendfundAtrium Health Mercy [id number] Immature Grans (Abs) 0.0 {x10E3/uL} (Normal) Range: [...] (Normal) Range: 3.4-10.8 :49 HgA1C , Office (05184) HgA1C , Office 5.9 % (Normal) Range: 4.6 - 7.1 :49 Blood Glucose , Office (39796) Blood Glucose , Office 133 (Normal) HDL Cholesterol 34 mg/dL (Abnormal) Comments: PATIENT WAS FASTINGPERFORMED BY: [place] [employer] Science and TechnologyTrinity Health [facility] Hospital6370 [facility] [id number] 0:18 Vitamin D, 25-Hydroxy 46.2 ng/mL (Normal) Comments: PATIENT WAS FASTINGPERFORMED BY: [place] [employer] [facility] Science and TechnologyTr[facility] Health [facility] Hospital6370 [facility] [id number] 0:18 Range: 30.0-100.0 Comments: Vitamin D deficiency has been defined by the [place] of[place]icine and an Endocrine Society practice guideline as alevel of serum 25-OH vitamin D less than 20 ng/mL (1,2).The Endocrine Society went on to further define vitamin Dinsufficiency as a level between 21 and 29 ng/mL (2).1. IOM ([place] of Medicine). 2010. Dietary reference intakes for calcium and D. [place]: The National Software Technology Press.2. Loki MF, Diane WHEELER, Jessie CARTER, et al. Evaluation, treatment, and prevention of vitamin D deficiency: an Endocrine Society clinical practice guideline. JCEM. 2010; 96(7):1911-30. :14 HgA1C , Office (51397) HgA1C , Office 6.1 % (Normal) Range: 4.6 - 7.1 :14 Blood Glucose , Office (95251) Blood Glucose , Office 111 (Normal) 83-Jdy-450440:23 Microscopic Examination Comments: PATIENT WAS FASTINGPERFORMED BY: LIQUITY [facility] Sujewc9049 [facility] [id number] Bacteria Few (Normal) Mucus Threads Present (Normal) Cast Type Hyaline casts (Normal) Casts Present {/lpf} (Abnormal) Epithelial Cells (non renal) None seen {/hpf} (Normal) Range: 0 - 10 RBC 0-2 {/hpf} (Normal) Range: 0 - 2 WBC 0-5 {/hpf} (Normal) Range: 0 - 5 :49 Fecal Occult Blood , Office (46777) Fecal Occult Blood , Office (Inhouse) negative (Normal) :23 CALCIFIDIOL (93935) VIT D 25 Comments: PATIENT WAS FASTINGPERFORMED BY: [facility] Qxpnru8012 [facility] [id number] Vitamin D, 25-Hydroxy 10.5 ng/mL (Abnormal) Range: 30.0-100.0 Comments: Vitamin D deficiency has been defined by the [place] of[place]icine and an Endocrine Society practice guideline as alevel of serum 25-OH vitamin D less than 20 ng/mL (1,2).The Endocrine Society went on to further define vitamin Dinsufficiency as a level between 21 and 29 ng/mL (2).1. IOM ([place] of Medicine). 2010. Dietary reference intakes for calcium and D. [place]: The National Software Technology Press.2. Loki MF, Diane NC, Jessie CARTER, et al. Evaluation, treatment, and prevention of vitamin D deficiency: an Endocrine Society clinical practice guideline. JCEM. 2010; 96(7):1911-30. :23 TSH (71734) Comments: PATIENT WAS FASTINGPERFORMED BY: VAZATA [employer] [place] [id number] TSH 2.340 {uIU/mL} (Normal) Range: 0.450-4.500 13-Ixw-168495:23 URINALYSIS, W/ MICRO (17612) Comments: PATIENT WAS FASTINGPERFORMED BY: SQLstream Startup FreakAtrium Health Mercy [id number] Microscopic Examination See below: (Normal) Comments: Microscopic was indicated and was performed. Microscopic Examination MICRON (Normal) Comments: Microscopic follows if indicated. Nitrite, Urine Negative (Normal) Urobilinogen,Semi-Qn 0.2 mg/dL (Normal) Range: 0.2-1.0 Bilirubin Negative (Normal) Occult Blood Negative (Normal) Ketones Negative (Normal) Glucose Negative (Normal) Protein Trace (Normal) WBC Esterase Negative (Normal) Appearance Clear (Normal) Urine-Color Yellow (Normal) pH 5.5 (Normal) Range: 5.0-7.5 Specific [place] 1.025 (Normal) Range: 1.005-1.030 :23 MICROALBUMIN: CREATININE RATIO Comments: PATIENT WAS FASTINGPERFORMED BY: SQLstream Startup FreakAtrium Health Mercy [id number] (94250) AND (20980) Microalb/Creat Ratio 26.8 {mg/g_creat} (Normal) Range: 0.0-30.0 Microalbumin, Urine 56.0 ug/mL (Normal) Creatinine, Urine 209.1 mg/dL (Normal) :23 METABOLIC PANEL, COMPREHENSIVE Comments: PATIENT WAS FASTINGPERFORMED BY: Moleculin70 friendfundAtrium Health Mercy [id number] (45332) ALT (SGPT) 25 [iU]/L (Normal) Range: 0-44 [...] Glucose, Serum 119 mg/dL (Abnormal) Range: 65-99 38-Jxw-795892:23 LIPID PANEL (19596) Comments: PATIENT WAS FASTINGPERFORMED BY: LabCoRiverview Medical CenterFiatsg4208 [facility] [id number] LDL/HDL Ratio 2.0 {ratio_units} (Normal) Range: 0.0-3.6 [...] Range: 100-199 :23 CBC with auto diff (82535) Comments: PATIENT WAS FASTINGPERFORMED BY: VAZATA Hrxcdq2430 [facility] [id number] Immature Grans (Abs) 0.0 {x10E3/uL} (Normal) Range: [...] 4.14-5.80 WBC 8.5 {x10E3/uL} (Normal) Range: 3.4-10.8 54-Bgi-420120:23 PSA (PROSTATE SPECIFIC Comments: PATIENT WAS FASTINGPERFORMED BY: LabCoDr. Dan C. Trigg Memorial HospitalPvrzof8581 [facility] [id number] ANTIGEN) (V76.44) Prostate Specific Ag, 1.3 ng/mL (Normal) Range: 0.0-4.0 Serum Comments: Quinton ECLIA methodology. .According to the [place] U[employer] Association, Serum PSA shoulddecrease and remain [...] of malignant disease. :54 HgA1C , Office (36345) HgA1C , Office 6.2 % (Normal) Range: 4.6 - 7.1 :54 Blood Glucose , Office (91238) Blood Glucose , Office 111 (Normal) 59-Vib-392405:11 MICROALBUMIN: CREATININE RATIO Comments: PATIENT WAS FASTINGPERFORMED BY: Bindo6370 friendfundAtrium Health Mercy [id number] (23738) AND (12340) Microalb/Creat Ratio 17.8 {mg/g_creat} (Normal) Range: 0.0-30.0 Microalbumin, Urine 12.0 ug/mL (Normal) Creatinine, Urine 67.6 mg/dL (Normal) 10-Abo-032932:11 METABOLIC PANEL, COMPREHENSIVE Comments: PATIENT WAS FASTINGPERFORMED BY: Bindo6370 friendfundAtrium Health Mercy [id number] (75645) ALT (SGPT) 25 [iU]/L (Normal) Range: 0-44 [...] Glucose, Serum 103 mg/dL (Abnormal) Range: 65-99 63-Oyz-939788:11 LIPID PANEL (84277) Comments: PATIENT WAS FASTINGPERFORMED BY: Kairos AR [facility] [id number] LDL/HDL Ratio 2.6 {ratio_units} (Normal) Range: 0.0-3.6 [...] Cholesterol, Total 166 mg/dL (Normal) Range: 100-199 39-Jwp-906493:11 CBC with auto diff (57690) Comments: PATIENT WAS FASTINGPERFORMED BY: Quantifind [facility] [id number]; fu 05-12-[address] Redmond Immature Grans [...] (Normal) Range: 3.4-10.8 :09 HgA1C , Office (41819) HgA1C , Office 6.2 % (Normal) Range: 4.6 - 7.1 :03 Metabolic Panel, Basic Comments: 4-6 weeks; PATIENT NOT FASTINGPERFORMED BY: LabCoRiverview Medical CenterRwrsrc0490 [facility] [id number] Information: [id number]; apt. 06-29-15 (40626) Calcium, Serum 9.7 mg/dL (Normal) Range: 8.7-10.2 [...] (Abnormal) Range: 65-99 :10 HgA1C , Office (91963) HgA1C , Office 6.2 % (Normal) Range: 4.6 - 7.1 :13 MICROALBUMIN: CREATININE RATIO Comments: PATIENT WAS FASTINGPERFORMED BY: VAZATARiverview Medical CenterPwoiro6777 [facility] [id number] (85811) AND (40519) Microalb/Creat Ratio 63.8 {mg/g_creat} (Abnormal) Range: 0.0-30.0 Microalbumin, Urine 62.1 ug/mL (Abnormal) Range: 0.0-17.0 Creatinine, Urine 97.3 mg/dL (Normal) Range: 22.0-328.0 :13 METABOLIC PANEL, COMPREHENSIVE Comments: PATIENT WAS FASTINGPERFORMED BY: VAZATARiverview Medical CenterBuwooe7086 [facility] [id number] (55907) ALT (SGPT) 32 [iU]/L (Normal) Range: 0-44 [...] mg/dL (Abnormal) Range: 65-99 :13 LIPID PANEL (40338) Comments: PATIENT WAS FASTINGPERFORMED BY: Quickfilter TechnologiesAtrium Health Mercy [id number] LDL/HDL Ratio 2.6 {ratio_units} (Normal) Range: 0.0-3.6 [...] auto diff Comments: PATIENT WAS FASTINGPERFORMED BY: Quantifind [facility] [id number] Information: [id number] (17155) Immature Grans (Abs) 0.0 {x10E3/uL} (Normal) Range: [...] (PROSTATE SPECIFIC Comments: PATIENT WAS FASTINGPERFORMED BY: [facility] Urktdk8402 [facility] [id number]; apt. 05-11-15 ANTIGEN) (V76.44) Prostate Specific Ag, 0.7 ng/mL (Normal) Range: 0.0-4.0 Serum Comments: Quinton ECLIA methodology. .According to the [place] U[employer] Association, Serum PSA shoulddecrease and remain [...] of malignant disease. :00 HgA1C , Office (52708) HgA1C , Office 6.3 % (Normal) Range: 4.6 - 7.1 :00 Blood Glucose , Office (04977) Blood Glucose , Office 143 (Normal) :16 CBC With Differential/Platelet Comments: PATIENT WAS FASTINGPERFORMED BY: [facility]Miss[facility] Ulxlfx2066 [facility] [id number] Information: [id number] Immature Grans (Abs) 0.0 {x10E3/uL} (Normal) Range: [...] Panel (14) Comments: PATIENT WAS FASTINGPERFORMED BY: VAZATA Zbkfkh8728 [facility] [id number] ALT (SGPT) 29 [iU]/L (Normal) Range: 0-44 [...] With LDL/HDL Comments: PATIENT WAS FASTINGPERFORMED BY: VAZATA Xqlynl5618 [facility] [id number] Ratio LDL/HDL Ratio 2.7 {ratio_units} (Normal) Range: [...] Randm Ur Comments: PATIENT WAS FASTINGPERFORMED BY: Kairos AR [facility] HospitalStepsssAtrium Health [facility]cy [id number] Microalb/Creat Ratio 91.1 {mg/g_creat} (Abnormal) Range: 0.0-30.0 Microalbumin, Urine 67.5 ug/mL (Abnormal) Range: 0.0-17.0 Creatinine, Urine 74.1 mg/dL (Normal) Range: 22.0-328.0 :02 HgA1C , Office (85782) HgA1C , Office 6.1 % (Normal) Range: 4.6 - 7.1 :02 Blood Glucose , Office (04441) Blood Glucose , Office 142 (Normal) :47 PSA (PROSTATE SPECIFIC Comments: PATIENT WAS FASTINGPERFORMED BY: Kairos AR [facility] [id number] ANTIGEN) (V76.44) Prostate Specific Ag, 0.7 ng/mL (Normal) Range: 0.0-4.0 Serum Comments: Curate.Us ECLIA methodology. .According to the [place] Urological Association, Serum PSA shoulddecrease and remain [...] CREATININE RATIO Comments: PATIENT WAS FASTINGPERFORMED BY: JintronixGallatin Gateway [place] [id number] (15263) AND (20047) Microalb/Creat Ratio 85.1 {mg/g_creat} (Abnormal) Range: 0.0-30.0 Microalbumin, Urine 102.0 ug/mL (Abnormal) Range: 0.0-17.0 Creatinine, Urine 119.8 mg/dL (Normal) Range: 22.0-328.0 :47 METABOLIC PANEL, COMPREHENSIVE Comments: PATIENT WAS FASTINGPERFORMED BY: [facility] Ivevpg8263 [facility] [id number] (63227) ALT (SGPT) 29 [iU]/L (Normal) Range: 0-44 [...] mg/dL (Abnormal) Range: 65-99 :47 LIPID PANEL (29787) Comments: PATIENT WAS FASTINGPERFORMED BY: VAZATARiverview Medical CenterNgfgim3988 [facility] [id number] LDL/HDL Ratio 2.2 {ratio_units} (Normal) Range: 0.0-3.6 [...] DIFF WBC Comments: PATIENT WAS FASTINGPERFORMED BY: VAZATARiverview Medical CenterDlncia3522 [facility] [id number] Information: [id number] (83139) Immature Grans (Abs) 0.0 {x10E3/uL} (Normal) Range: [...] (Normal) Range: 3.4-10.8 :08 HgA1C , Office (63764) HgA1C , Office 6.2 % (Normal) Range: 4.6 - 7.1 :08 Blood Glucose , Office (54881) Blood Glucose , Office 138 (Normal) :39 Blood Glucose , Office (64300) Blood Glucose , Office 141 (Normal) :39 HgA1C , Office (91248) HgA1C , Office 6.5 % (Normal) Range: 4.6 - 7.1 :42 METABOLIC PANEL, Comments: PATIENT WAS FASTINGPERFORMED BY: LabCoRiverview Medical CenterBddyab6741 [facility] [id number] Information: [id number] COMPREHENSIVE (93713) ALT (SGPT) 46 [iU]/L (Abnormal) Range: 0-44 [...] Glucose, Serum 117 mg/dL (Abnormal) Range: 65-99 77-Anz-697596:42 LIPID PANEL (64259) Comments: PATIENT WAS FASTINGPERFORMED BY: Bindo6370 [facility] [id number] LDL/HDL Ratio 3.4 {ratio_units} (Normal) Range: 0.0-3.6 LDL Cholesterol Calc 108 mg/dL (Abnormal) Range: 0-99 VLDL Cholesterol Jose De Jesus 37 mg/dL (Normal) Range: 5-40 HDL Cholesterol 32 mg/dL (Abnormal) Comments: According to ATP-III Guidelines, HDL-C >59 mg/dL is considered anegative risk factor for CHD. Cholesterol, Total 177 mg/dL (Normal) Range: 100-199 Triglycerides 186 mg/dL (Abnormal) Range: 0-149 34-Rnm-719787:42 MICROALBUMIN: CREATININE RATIO Comments: PATIENT WAS FASTINGPERFORMED BY: [employer] Noffjp0781 [facility] [id number] (37200) AND (41413) Microalb/Creat Ratio 59.4 {mg/g_creat} (Abnormal) Range: 0.0-30.0 Microalbumin, Urine 101.5 ug/mL (Abnormal) Range: 0.0-17.0 Creatinine, Urine 170.9 mg/dL (Normal) Range: 22.0-328.0 :13 Blood Glucose , Office (71981) Blood Glucose , Office 110 (Normal) :13 HgA1C , Office (35205) HgA1C , Office 6.2 % (Normal) Range: 4.6 - 7.1 :21 METABOLIC PANEL, COMPREHENSIVE Comments: PATIENT WAS FASTINGPERFORMED BY: CITTIO70 [facility] [id number] (84061) ALT (SGPT) 37 [iU]/L (Normal) Range: 0-44 [...] mg/dL (Abnormal) Range: 65-99 :21 LIPID PANEL (66454) Comments: PATIENT WAS FASTINGPERFORMED BY: [employer]6370 [facility] [id number] LDL/HDL Ratio 2.6 {ratio_units} (Normal) Range: 0.0-3.6 [...] MANUAL DIFF Comments: PATIENT WAS FASTINGPERFORMED BY: LabTrinity Health [facility] [facility] [id number] Information: [id number] (24817) Immature Grans (Abs) 0.0 {x10E3/uL} (Normal) Range: [...] (PROSTATE SPECIFIC Comments: PATIENT WAS FASTINGPERFORMED BY: [employer] Science and TechnologyTrinity Health [facility] Hospital6[address] [facility] [id number] ANTIGEN) (V76.44) Prostate Specific Ag, 0.6 ng/mL (Normal) Range: 0.0-4.0 Serum Comments: Quinton ECLIA methodology. .According to the [place] [employer], Serum PSA shoulddecrease and remain [...] of malignant disease. :27 HgA1C , Office (79065) HgA1C , Office 6.0 % (Normal) Range: 4.6 - 7.1 :27 Blood Glucose , Office (50412) Blood Glucose , Office 114 (Normal) Comments: fasting :21 MICROALBUMIN: CREATININE RATIO Comments: PATIENT WAS FASTINGPERFORMED BY: VAZATARiverview Medical CenterAjuajv3352 [facility] [id number] ([id number]) AND (93955) Microalb/Creat Ratio 60.1 {mg/g_creat} (Abnormal) Range: 0.0-30.0 Creatinine, Urine 111.1 mg/dL (Normal) Range: 22.0-328.0 Microalbumin, Urine 66.8 ug/mL (Abnormal) Range: 0.0-17.0 :21 METABOLIC PANEL, COMPREHENSIVE Comments: PATIENT WAS FASTINGPERFORMED BY: [facility] [facility] [id number] ([id number]) ALT (SGPT) 26 [iU]/L (Normal) Range: 0-44 [...] mg/dL (Abnormal) Range: 65-99 26-Nov-20127:21 LIPID PANEL (99141) Comments: PATIENT WAS FASTINGPERFORMED BY: [facility] Mfaobq3804 [facility] [id number] LDL/HDL Ratio 4.6 {ratio_units} (Abnormal) Range: 0.0-3.6 [...] MANUAL DIFF Comments: PATIENT WAS FASTINGPERFORMED BY: [facility]Tr[facility] [id number] Information: [id number] (46722) Immature Grans (Abs) 0.0 {x10E3/uL} (Normal) Range: [...] (Normal) Range: 4.0-10.5 :38 HgA1C , Office (16529) HgA1C , Office 6.2 % (Normal) Range: 4.6 - 7.1 :38 Blood Glucose , Office (74226) Blood Glucose , Office 117 (Normal) :31 LIPID PANEL (47572) Comments: PATIENT WAS FASTINGPERFORMED BY: VAZATARiverview Medical CenterFuvthp9067 [facility] [id number] LDL/HDL Ratio 2.6 {ratio_units} (Normal) Range: 0.0-3.6 [...] FUNCTION PANEL Comments: PATIENT WAS FASTINGPERFORMED BY: VAZATARiverview Medical CenterFimyyk7651 [facility] [id number] Information: [id number] (04301) ALT (SGPT) 37 [iU]/L (Normal) Range: 0-44 AST (SGOT) 33 [iU]/L (Normal) Range: 0-40 Alkaline Phosphatase, S 99 [iU]/L (Normal) Range: 25-150 Bilirubin, Direct 0.21 mg/dL (Normal) Range: 0.00-0.40 Bilirubin, Total 0.8 mg/dL (Normal) Range: 0.0-1.2 Albumin, Serum 4.5 g/dL (Normal) Range: 3.5-5.5 Protein, Total, Serum 7.0 g/dL (Normal) Range: 6.0-8.5 :43 HgA1C , Office (94052) HgA1C , Office 6.4 % (Normal) Range: 4.6 - 7.1 :43 Blood Glucose , Office (84846) Blood Glucose , Office 111 (Normal) Comments: fasting 13-Zje-82379:19 Microscopic Examination Comments: PATIENT WAS FASTINGPERFORMED BY: VAZATARiverview Medical CenterKkhdak2581 [facility] [id number] Bacteria None seen (Normal) Mucus Threads Present (Normal) Epithelial Cells (non renal) 0-10 {/hpf} (Normal) Range: 0 - 10 RBC 0-3 {/hpf} (Normal) Range: 0 - 3 WBC 0-5 {/hpf} (Normal) Range: 0 - 5 76-Wqf-51870:19 URINALYSIS, W/ MICRO (28115) Comments: PATIENT WAS FASTINGPERFORMED BY: [employer] Software Science and TechnologyResearch Psychiatric CenterBbqyxo4591 [facility] [id number] Microscopic Examination See below: (Normal) Nitrite, Urine Negative (Normal) Urobilinogen,Semi-Qn 0.2 mg/dL (Normal) Range: 0.0-1.9 Bilirubin Negative (Normal) Occult Blood Negative (Normal) Ketones Negative (Normal) Glucose Negative (Normal) Protein 1+ (Abnormal) WBC Esterase Negative (Normal) Appearance Clear (Normal) pH 6.0 (Normal) Range: 5.0-7.5 Urine-Color Yellow (Normal) Specific [place] 1.024 (Normal) Range: 1.005-1.030 :19 MICROALBUMIN: CREATININE RATIO Comments: PATIENT WAS FASTINGPERFORMED BY: [employer] Software Science and TechnologyTr[facility] Health [facility] Hospital6[address] [facility] [id number] ([id number]) AND (07197) Creatinine, Urine 283.0 mg/dL (Normal) Range: 22.0-328.0 Microalb/Creat Ratio 68.6 {mg/g_creat} (Abnormal) Range: 0.0-30.0 Microalbumin, Urine 194.0 ug/mL (Abnormal) Range: 0.0-17.0 :19 METABOLIC PANEL, COMPREHENSIVE Comments: PATIENT WAS FASTINGPERFORMED BY: [facility]6[address] [facility] [id number] ([id number]) ALT (SGPT) 43 [iU]/L (Normal) Range: 0-55 [...] Glucose, Serum 113 mg/dL (Abnormal) Range: 65-99 72-Lds-97918:19 LIPID PANEL (47015) Comments: PATIENT WAS FASTINGPERFORMED BY: LabCoRiverview Medical CenterTtfdbl3504 [facility] [id number] LDL/HDL Ratio 3.8 {ratio_units} (Abnormal) Range: 0.0-3.6 [...] MANUAL DIFF Comments: PATIENT WAS FASTINGPERFORMED BY: LabCoRiverview Medical CenterXxfeku6840 [facility] [id number] Information: [id number] (74211) Immature Grans (Abs) 0.0 {x10E3/uL} (Normal) Range: [...] (Normal) Range: 4.0-10.5 :00 HgA1C , Office (29266) HgA1C , Office 6.1 % (Normal) Range: 4.6 - 7.1 :00 Blood Glucose , Office (19180) Blood Glucose , Office 134 (Normal) :35 HgA1C , Office (05462) HgA1C , Office 6.4 % (Normal) Range: 4.6 - 7.1 :35 Blood Glucose , Office (81690) Blood Glucose , Office 129 (Normal) :00 Comp. Metabolic Panel (14) Comments: PATIENT WAS FASTINGPERFORMED BY: LabCoRiverview Medical CenterDcchdf9655 [facility] [id number] ALT (SGPT) 44 [iU]/L (Normal) Range: 0-55 [...] With LDL/HDL Comments: PATIENT WAS FASTINGPERFORMED BY: [employer] Software Science and TechnologyTrinity Health [facility] Hospital6[address] [facility] [id number] Ratio LDL/HDL Ratio 3.3 {ratio_units} (Normal) Range: 0.0-3.6 LDL Cholesterol Calc 109 mg/dL (Abnormal) Range: 0-99 VLDL Cholesterol Jose De Jesus 40 mg/dL (Normal) Range: 5-40 HDL Cholesterol 33 mg/dL (Abnormal) Comments: According to ATP-III Guidelines, HDL-C >59 mg/dL is considered anegative risk factor for CHD. Triglycerides 200 mg/dL (Abnormal) Range: 0-149 Cholesterol, Total 182 mg/dL (Normal) Range: 100-199 :24 HgA1C , Office (79179) HgA1C , Office 6.1 % (Normal) Range: 4.6 - 7.1 :24 Blood Glucose , Office (13630) Blood Glucose , Office 105 (Normal) :13 MICROALBUMIN: CREATININE RATIO Comments: PATIENT WAS FASTINGPERFORMED BY: [facility]6[address] [facility] [id number] (66858) AND (32565) Microalb/Creat Ratio 114.0 {mg/g_creat} (Abnormal) Range: 0.0-30.0 Microalbumin, Urine 234.0 ug/mL (Abnormal) Range: 0.0-17.0 Creatinine, Urine 205.3 mg/dL (Normal) Range: 22.0-328.0 :13 Metabolic Panel, Basic Comments: PATIENT WAS FASTINGPERFORMED BY: [facility]6[address] [facility] [id number] Information: [id number] (89614) Calcium, Serum 9.6 mg/dL (Normal) Range: 8.7-10.2 [...] 65-99 :09 Creatinine Clearance Comments: PERFORMED BY: LabCoRiverview Medical CenterVjpmiv3290 [facility] [id number] Information: 03/30@8AM 03/31@630AM Creatinine Clearance 104 mL/min [...] Total, Qn, 24-Hr Comments: PERFORMED BY: TERENCE VAZATARiverview Medical CenterYoqlzm2405 [facility] [id number]; appt 04/03/11 Urine Prot,24hr calculated 382.3 {mg/24_hr} (Abnormal) Range: 30.0-150.0 Protein,Total,Urine 13.9 mg/dL (Normal) Range: 0.0-15.0 :13 LIPID PANEL (87372) Comments: in three months (approximately); PATIENT WAS FASTINGPERFORMED BY: [employer]6[address] [facility] [id number] LDL/HDL Ratio 4.6 {ratio_units} (Abnormal) Range: 0.0-3.6 [...] three months (approximately); PATIENT WAS FASTINGPERFORMED BY: VAZATARiverview Medical CenterWzhodf3972 [facility] [id number] Information: [id number] (36037) ALT (SGPT) 53 [iU]/L (Normal) Range: 0-55 AST (SGOT) 38 [iU]/L (Normal) Range: 0-40 Alkaline Phosphatase, S 87 [iU]/L (Normal) Range: 25-150 Bilirubin, Direct 0.13 mg/dL (Normal) Range: 0.00-0.40 Bilirubin, Total 0.5 mg/dL (Normal) Range: 0.0-1.2 Albumin, Serum 4.3 g/dL (Normal) Range: 3.5-5.5 Protein, Total, Serum 6.8 g/dL (Normal) Range: 6.0-8.5 :30 Metabolic Panel, Basic Comments: 2 weeks; PATIENT NOT FASTINGPERFORMED BY: [employer] Aowwhc0677 [facility] [id number] Information: [id number] (35096) Calcium, Serum 9.6 mg/dL (Normal) Range: 8.7-10.2 [...] (Abnormal) Range: 65-99 :59 HgA1C , Office (09589) HgA1C , Office 6 % (Normal) Range: 4.6 - 7.1 :04 Microscopic Examination Comments: PATIENT WAS FASTINGPERFORMED BY: [employer] Kquoek6500 [facility] [id number] Bacteria None seen (Normal) Mucus Threads Present (Normal) Epithelial Cells (non renal) None seen {/hpf} (Normal) Range: 0 - 10 RBC 0-3 {/hpf} (Normal) Range: 0 - 3 WBC 0-5 {/hpf} (Normal) Range: 0 - 5 :04 Protein Electro, Random Urine Comments: PATIENT WAS FASTINGPERFORMED BY: VAZATARiverview Medical CenterDseono6711 [facility] [id number] Please note: SPRCS (Normal) Comments: Protein electrophoresis scan will follow via computer, mail, orcourier delivery. M-Jozef, % Not Observed % (Normal) Beta Globulin, U 8.1 % (Normal) Gamma Globulin, U 4.8 % (Normal) Ksilh-2-Ocdbomll, U 4.2 % (Normal) Azcpv-3-Ooonobex, U 3.9 % (Normal) Albumin, U 79.0 % (Normal) Protein,Total,Urine 70.0 mg/dL (Abnormal) Range: 0.0-15.0 :04 Protein Electro.,S Comments: PATIENT WAS FASTINGPERFORMED BY: VAZATARiverview Medical CenterTpiwas3251 [facility] [id number] Information: [id number] Please note: SPRCS (Normal) Comments: Protein electrophoresis scan will follow via computer, mail, orcourier delivery. A/G Ratio 1.3 (Normal) Range: 0.7-2.0 Globulin, Total 3.1 g/dL (Normal) Range: 2.0-4.5 M-Jozef Not Observed g/dL (Normal) Gamma Globulin 0.9 g/dL (Normal) Range: 0.5-1.6 Beta Globulin 1.0 g/dL (Normal) Range: 0.6-1.3 Flupu-5-Fpfghhxy 0.3 g/dL (Normal) Range: 0.1-0.4 Xrcui-9-Ypuvjoms 1.0 g/dL (Normal) Range: 0.4-1.2 Albumin 4.1 g/dL (Normal) Range: 3.2-5.6 Protein, Total, Serum 7.2 g/dL (Normal) Range: 6.0-8.5 Written Authorization WAR (Normal) Comments: PATIENT WAS FASTINGPERFORMED BY: [place] [employer] Software Science and TechnologyTrinity Health [facility] Hospital6[address] [facility] [id number] :04 Comments: Written Authorization Received.Authorization received from CHARLEE CUELLAR [id number] by Nkechi Shaw :04 PSA (PROSTATE SPECIFIC Comments: PATIENT WAS FASTINGPERFORMED BY: [employer] Science and TechnologyTr[facility] Health [facility] Hospital6[address] [facility] [id number] ANTIGEN) (V76.44) Prostate Specific Ag, 0.8 ng/mL (Normal) Range: 0.0-4.0 Serum Comments: Quinton ECLIA methodology. .According to the [place] [employer], Serum PSA shoulddecrease and remain [...] CREATININE RATIO Comments: PATIENT WAS FASTINGPERFORMED BY: Quickfilter TechnologiesAtrium Health Mercy [id number] ([id number]) AND (69128) Microalb/Creat Ratio 277.7 {mg/g_creat} (Abnormal) Range: 0.0-30.0 Microalbumin, Urine 535.4 ug/mL (Abnormal) Range: 0.0-17.0 Creatinine, Urine 192.8 mg/dL (Normal) Range: 22.0-328.0 :04 URINALYSIS, W/ MICRO (49493) Comments: PATIENT WAS FASTINGPERFORMED BY: JintronixColumbus Regional Healthcare System [id number] Microscopic Examination See below: (Normal) Nitrite, Urine Negative (Normal) Urobilinogen,Semi-Qn 0.2 mg/dL (Normal) Range: 0.0-1.9 Bilirubin Negative (Normal) Occult Blood Negative (Normal) Ketones Negative (Normal) Glucose Negative (Normal) Protein 2+ (Abnormal) WBC Esterase Negative (Normal) Appearance Clear (Normal) Urine-Color Yellow (Normal) pH 6.0 (Normal) Range: 5.0-7.5 Specific [place] 1.024 (Normal) Range: 1.005-1.030 :04 METABOLIC PANEL, COMPREHENSIVE Comments: PATIENT WAS FASTINGPERFORMED BY: [employer]70 [facility] [id number] (88813) ALT (SGPT) 23 [iU]/L (Normal) Range: 0-55 [...] Glucose, Serum 116 mg/dL (Abnormal) Range: 65-99 68-Zry-42665:04 LIPID PANEL (86164) Comments: PATIENT WAS FASTINGPERFORMED BY: LabCoRiverview Medical CenterEjvgnc6765 [facility] [id number] LDL/HDL Ratio 5.7 {ratio_units} (Abnormal) Range: 0.0-3.6 LDL Cholesterol Calc 194 mg/dL (Abnormal) Range: 0-99 Comments: Possible Familial Hypercholesterolemia. FH should be suspected whenfasting LDL cholesterol is above 189 mg/dL or non-HDL cholesterolis above 219 mg/dL. A family history of high cholesterol and heartdise ase in 1st degree relatives should be collected. J Clin Ocxvkvt8210;5:133-140 VLDL Cholesterol Jose De Jesus 69 mg/dL (Abnormal) Range: 5-40 HDL Cholesterol 34 mg/dL (Abnormal) Comments: According to ATP-III Guidelines, HDL-C >59 mg/dL is considered anegative risk factor for CHD. Triglycerides 346 mg/dL (Abnormal) Range: 0-149 Cholesterol, Total 297 mg/dL (Abnormal) Range: 100-199 51-Eln-85340:04 CBC WITH MANUAL DIFF Comments: PATIENT WAS FASTINGPERFORMED BY: LabCoRiverview Medical CenterDdstgn5812 [facility] [id number] Information: [id number] (69444) Immature Grans (Abs) 0.0 {x10E3/uL} (Normal) Range: [...] from Block, bundle branch, left) : Reviewed Dental Resident Letter Indication: Left bundle branch block (Renamed [...] (chronic kidney disease), stage III : Reviewed Dental Resident Letter Indication: CKD (chronic kidney disease), stage III Type 2 diabetes mellitus without complication : Reviewed Lab Indication: Type 2 diabetes mellitus without complication Hypercholesteremia : Cholesterol mgmt Indication: Hypercholesteremia Hypertension with heart disease : HTN/CAD Red Flags Indication: Hypertension with heart disease Coronary artery disease, non-occlusive : Reviewed Dental Resident Letter Indication: Coronary artery disease, non-occlusive Coronary artery disease, non-occlusive : Continue Current Prescription(s) Indication: Coronary artery disease, non-occlusive Type 2 diabetes mellitus without complication : Follow up in 3 months Indication: Type 2 diabetes mellitus without complication Type 2 diabetes mellitus without complication : Reviewed Lab Indication: Type 2 diabetes mellitus without complication Coronary artery disease, non-occlusive : Reviewed Dental Resident Letter Indication: Coronary artery disease, non-occlusive Hypertension [...] non-occlusive Coronary artery disease, non-occlusive : Reviewed Dental Resident Letter Indication: Coronary artery disease, non-occlusive Type 2 diabetes mellitus without complication : Eprescribed prescriptions (G8553) Indication: Type 2 diabetes mellitus without complication Type 2 diabetes mellitus without complication : Follow up in 3 months Indication: Type 2 diabetes mellitus without complication Coronary artery disease, non-occlusive : Continue Current Prescription(s) Indication: Coronary artery disease, non-occlusive Coronary artery disease, non-occlusive : Reviewed Dental Resident Letter- discharged Indication: Coronary artery disease, non-occlusive [...] disease Coronary artery disease, non-occlusive : Reviewed Dental Resident Letter Indication: Coronary artery disease, non-occlusive Type [...] Injections Indication: Trigger finger Planned Observations CALCIFIDIOL (46693) VIT D 25Indication: Vitamin D deficiency On: :21 Request TSH (98645)Indication: Type 2 diabetes mellitus without complication On: 59-Myb-08949:21 Request URINALYSIS, W/ MICRO (50714)Indication: Hypertension with heart disease On: :20 Request MICROALBUMIN: CREATININE RATIO (43586) AND (90252)Indication: Hypertension with heart disease On: :20 Request METABOLIC PANEL, COMPREHENSIVE (90965)Indication: Hypertension with heart disease On: 47-Bbl-33240:20 Request LIPOPROTEIN, BLD, BY NMR (63751)Indication: Hypercholesteremia On: :20 Request CBC W/AUTO DIFF WBC (25960)Indication: Hypertension with heart disease On: :20 Request CALCIFEDIOL (29595)Indication: Vitamin D deficiency On: :20 Request TSH (48300)Indication: Type 2 diabetes mellitus without complication On: :20 Request URINALYSIS, W/ MICRO (56547)Indication: Hypertension with heart disease On: :20 Request MICROALBUMIN: CREATININE RATIO (26835) AND (36187)Indication: Hypertension with heart disease On: :20 Request METABOLIC PANEL, COMPREHENSIVE (39866)Indication: Hypertension with heart disease On: :20 Request LIPID PANEL (50340)Indication: Hypertension with heart disease On: : Request CBC with auto diff (67190)Indication: Hypertension with heart disease On: :20 Request HDL CHOLESTEROL-DIRECT (12722)Indication: Hypercholesteremia On: 74-Ckg-697459:00 Request CALCIFEDIOL (28877)Indication: Vitamin D deficiency On: 76-Osp-116783:59 Request FECAL OCCULT- Tubes sent home (68006)Indication: Encounter for screening for malignant neoplasm of colon (Renamed from Special screening for malignant neoplasms, colon) On: :48 Request CBC with auto diff (47749)Indication: Type 2 diabetes mellitus without complication On: :40 Request Comments: all in six months (approximately) MICROALBUMIN: CREATININE RATIO (50540) AND (73797)Indication: Type 2 diabetes mellitus without complication On: :40 Request METABOLIC PANEL, COMPREHENSIVE (83110)Indication: Type 2 diabetes mellitus without complication On: :40 Request LIPID PANEL (75221)Indication: Type 2 diabetes mellitus without complication On: :40 Request MICROALBUMIN: CREATININE RATIO (85767) AND (08122)Indication: Type 2 diabetes mellitus without complication On: :09 Request PSA (PROSTATE SPECIFIC ANTIGEN) (86335)Indication: Type 2 diabetes mellitus without complication On: :08 Request CBC, PLATELETS & MANUAL DIFF (21972)Indication: Type 2 diabetes mellitus without complication On: :08 Request METABOLIC PANEL, COMPREHENSIVE (85041)Indication: Type 2 diabetes mellitus without complication On: :08 Request LIPID PANEL (45047)Indication: Type 2 diabetes mellitus without complication On: :08 Request MICROALBUMIN: CREATININE RATIO (62968) AND (56843)Indication: Type 2 diabetes mellitus without complication On: :24 Request METABOLIC PANEL, COMPREHENSIVE (59610)Indication: Type 2 diabetes mellitus without complication On: :24 Request LIPID PANEL (85715)Indication: Type 2 diabetes mellitus without complication On: :24 Request CBC W/AUTO DIFF WBC (79513)Indication: Type 2 diabetes mellitus without complication On: :24 Request Lipid Panel (70456)Indication: Benign essential HTN On: :48 Request Metabolic Panel, Comprehensive (65674)Indication: Benign essential HTN On: :48 Request 24 hour urine for Protein (47613)Indication: Benign essential HTN On: :16 Request UPEP (87995)Indication: Proteinuria On: :09 Request SPEP (29530)Indication: Proteinuria On: :09 Request Planned Encounters Medical; 3 Month FU - On: 19-Aug-2018 7:30 [facility] Jessica Redmond DO, DO, Kathleen Planned Procedures Nuclear Stress Test/Stress On: 20-May-2018 Intent SPECT/TreadmillBy: Jessica Redmond DO, DO, Kathleen Flu Vaccine (Quadrivalent) 81563If: On: 20-May-2018 Intent Mar Mendiola Comments: Lot #[id number]-L dltd, IMAmount: 0.5mlVIS reviewed and ABN signedgiven by:JACEK Bauer reviewed and ABN signed ELECTROCARDIOGRAM, COMPLETE (ECG) On: 17-Feb-2018 Intent (02469)By: Jessica Redmond DO Comments: nsr LBBB-old, no acute chg Jessica BOOTHE COMPLETE ULTRASOUND OF KIDNEY On: 03-Dec-2017 Intent (88074)By: Jessica Redmond DO Comments: b/l DO, Jessica ELECTROCARDIOGRAM, COMPLETE (ECG) On: 15-Apr-2017 Intent (94024)By: Jessica Redmond DO Comments: nsr - LBBB-old , Jessica Flu Vaccine (Quadrivalent) 95593Eb: On: 15-Apr-2017 Intent Ruy Jessica BOOTHE Ruy BOOTHE, Comments: Lot #[id number]/07/17ite-L dltd, IMDose prefilled syringegiven by:JULIANNE Roth and ABN signed Jessica ELECTROCARDIOGRAM, COMPLETE (ECG) On: 12-May-2016 Intent (02759)By: Jessica Redmond DO Comments: nsr LBBB- - no acute chg Mitzy BOOTHEeen Flu Vaccine (Quadrivalent) 92780Cg: On: 12-May-2016 Intent RuyJessica yang DO Ruy BOOTHE, Comments: Lot #[id number]/30/17ite-L dltd, IMDose prefilled syringegiven by:JULIANNE Roth and ABN signed Jessica CT - Chest (Without Contrast)By: On: 09-Nov-2015 Intent Charlee Cuellar MD Comments: LDCT 30 plus year history TDAP VACCINE >7 IM (84563)By: Edmond On: 11-May-2015 Intent Charlee LARA Comments: boostrixlot [id number] 10.9.17L Dltd, IMPrefilled syringeMegan JULIANNE Munroe signed ADMINISTRATION OF INFLUENZA VIRUS On: 11-May-2015 Intent VACCINE (G0008)By: Charlee Cuellar MD Flu Vaccine (Quadrivalent) 04216Xc: On: 11-May-2015 Intent Charlee Cuellar MD Comments: Lot #:[id number] date:Amount given:0.5mlRoute: IMSite given:L DltdGiven by: Iris TIRADO and ABN signed Quad Flu Flu Vaccine (Quadrivalent) 62653Uu: On: 12-May-2014 Intent Charlee Cuellar MD ADMINISTRATION OF INFLUENZA VIRUS On: 12-May-2014 Intent VACCINE (G0008)By: Charlee Cuellar MD EKG (07092)By: Charlee Cuellar MD On: 10-Feb-2014 Intent Comments: see scanned document of test done to see results reviewed today with patient Nuclear Stress Test/Stress On: 10-Feb-2014 Intent SPECT/TreadmillBy: Charlee Cuellar MD Eprescribed prescriptions (G8553)By: On: 10-Nov-2013 Intent Charlee Cuellar MD Nuclear Stress Test/Stress On: 05-May-2013 Intent SPECT/TreadmillBy: Charlee Cuellar MD EKG (38442)By: Charlee Cuellar MD On: 05-May-2013 Intent Comments: see scanned document of test done to see results reviewed today with patient Eprescribed prescriptions (G8553)By: On: 03-Dec-2012 Intent Debbie Cisneros FLU VAC, SPLIT, >3 YEARS, INTRAMUSC On: 23-Apr-2012 Intent (29311)By: Iris Munroe LPN Comments: declined ELECTROCARDIOGRAM, COMPLETE (ECG) On: 23-Apr-2012 Intent (83751)By: Iris Munroe LPN IMMUNIZ ADMNIN, 1 VAC, SNGL/COMBO On: 23-Apr-2012 Intent (15695)By: Iris Munroe LPN Eprescribed prescriptions (G8553)By: On: 23-Apr-2012 Intent Iris Munroe LPN FLU VAC, SPLIT, >3 YEARS, INTRAMUSC On: 03-Apr-2011 Intent (86490)By: Iris Munroe LPN Comments: DECLINED IMMUNIZ ADMNIN, 1 VAC, SNGL/COMBO On: 03-Apr-2011 Intent (55589)By: Iris Munroe LPN Nuclear Stress Test/Stress On: 28-Feb-2011 Intent SPECT/TreadmillBy: Charlee Cuellar MD Echo CompleteBy: Charlee Cuellar MD On: 28-Feb-2011 Intent EKG (94623)By: Charlee Cuellar MD On: 28-Feb-2011 Intent Instructions [...] for Tdap vaccination (Renamed from Need for cmwhcukxot-ilpmrvs-okbnvlwru (Tdap) vaccine, adult/adolescent) [facility] [...]
== END ==
PROVIDERS: Family Provider Internal Medicine; PCP Internal Medicine; Referring Provider Internal Medicine; Visit Provider Internal Medicine
DX: I25.10 Atherosclerotic heart disease of native coronary artery without angina pectoris (principal)
CPT/HCPCS: 78452; 93017; A9500; A4216

== ENCOUNTER → 2018-07-28 08:43 | Outpatient (CLI) | payer OTHER, SELFPAY ==
[2018-07-28 08:55] LABS: Bacteria 0 SEEN /hpf (None Seen); Mucous, Urine 0 SEEN /hpf (<or=2+); Red Blood Cells-Urine 0 SEEN /hpf (0-5); Squamous Epithelial Cells - UA 0 SEEN /hpf (0-5); White Blood Cells 0 SEEN /hpf (0-5)
[2018-07-28 10:05] LABS: Color, Urine Straw (Yellow); Glucose, Dipstick Normal (Normal); Ketone-Dipstick Negative (Negative); Leukocyte Esterase-Dipstick Negative /ul (Negative); Nitrite-Dipstick Negative (Negative); Occult Blood-Urine Negative /ul (Negative); Protein-Dipstick Negative (Negative); Urine Bilirubin Dipstick Negative (Negative); Urine Clarity Clear (Clear); Urine Urobilinogen Normal (Normal)
[2018-07-28 10:11] LABS: Absolute Lymphocyte Count 2.18 X10^3/ul (0.83-4.51); Absolute Neutrophil Count 4.8 X10^3/uL (2.0-7.7); Basophil# 0.07 X10^3/uL; Basophil% 0.9 % (0-1); Eosinophil# 0.08 X10^3/uL; Eosinophils% 1.1 % (0-5); Hematocrit 43.6 % (40-54); Hemoglobin 14.5 g/dl (13.0-16.5); Lymphocyte # 2.18 X10^3/ul (4.0); Lymphocyte % 28.6 % (19-41); Mean Corp Hgb Conc 33.3 g/gl (32-36); Mean Corpuscular Hgb 30.9 pg (27.0-32.0); Mean Corpuscular Volume 92.8 fL (80-94); Mean Platelet Vol. 10.9 fl (6.2-12.0); Monocyte# 0.44 X10^3/uL; Monocyte% 5.8 % (0-10); Neutrophil # 4.83 X10^3/uL (2.7-7.7); Neutrophil % 63.5 % (47-70); Platelet Count 189 K/mm3 (150-450); RBC Distribution Width CV 12.6 % (11.6-14.6); RBC Distribution Width SD 41.7 fl (35.1-43.9); White Blood Count 7.6 K/mm3 (4.4-11.0)
[2018-07-28 10:13] LABS: POSITIVE COUNT NO; POSITIVE DIFFERENTIAL NO; POSITIVE MORPHOLOGY NO
[2018-07-28 10:28] LABS: Microalbumin,Random Urine 9.2 mg/L (NO RANGE EST.); Microalbumin:Creatinine Ratio 28.5 mg/g CRE (<30 mg/g CRE); Protein, Urine (Random) 6.3 mg/dL (<11.9); Protein:Creat Ratio 195 mg/g CRE (0-200)
[2018-07-28 11:04] LABS: PTHIN 34.8 pg/mL (18.4-80.1); Vitamin D,25 Hydroxy 69.2 ng/mL (29.95-100.01)
[2018-07-28 11:12] LABS: ALB/GLOB Ratio 1.2 RATIO (0.9-2.4); AST(SGOT) 24 U/L (15-37); Alanine Aminotransfer ALT/SGPT 39 U/L (16-61); Alkaline Phosphatase 58 U/L (45-117); Anion Gap 8 (5-15); BUN 32 mg/dL (7-18); BUN/Creat Ratio 22.1 RATIO (10-20); Calcium,Total 8.8 mg/dL (8.5-10.1); Chloride 105 mmol/L (98-107); Creatinine, Serum 1.45 mg/dL (0.70-1.30); EST Glomerular Filtration Rate 53 mL/min (>60); Est Glom Filt Rate - Afr Amer 64 mL/min (>60); Globulin 3.2 g/dL (2.2-4.2); Glucose 113 mg/dL (74-106); Potassium 3.9 mmol/L (3.5-5.1); Protein, Total 7.2 g/dL (6.4-8.2); Sodium Level 140 mmol/L (136-145)
== END ==
PROVIDERS: Family Provider Internal Medicine; PCP Internal Medicine; Referring Provider Internal Medicine Nephrology; Visit Provider Internal Medicine Nephrology
DX: I11.9 Hypertensive heart disease without heart failure (principal); E55.9 Vitamin D deficiency, unspecified; E78.00 Pure hypercholesterolemia, unspecified; R80.9 Proteinuria, unspecified; N18.3 Chronic kidney disease, stage 3 (moderate)
CPT/HCPCS: 36415; 80053; 80061; 81001; 82043; 82306; 82570; 83704; 83970; 84100; 84156; 84443; 85025

== ENCOUNTER → 2019-01-19 10:16 | Outpatient (CLI) | payer OTHER, SELFPAY ==
[2019-01-19 10:25] LABS: Bacteria 0 SEEN /hpf (None Seen); Mucous, Urine 0 SEEN /hpf (<or=2+); Red Blood Cells-Urine 0 SEEN /hpf (0-5); Squamous Epithelial Cells - UA 0 SEEN /hpf (0-5); White Blood Cells 0 SEEN /hpf (0-5)
[2019-01-19 10:46] LABS: Absolute Lymphocyte Count 1.83 X10^3/uL (0.83-4.51); Absolute Neutrophil Count 4.4 X10^3/uL (2.0-7.7); Basophil# 0.06 X10^3/uL; Basophil% 0.9 % (0-1); Eosinophils% 1.4 % (0-5); Hemoglobin 14.1 g/dL (13.0-16.5); Lymphocyte # 1.83 X10^3/ul (4.0); Lymphocyte % 26.3 % (19-41); Mean Corp Hgb Conc 33.6 g/dL (32-36); Mean Corpuscular Hgb 31.1 pg (27.0-32.0); Mean Corpuscular Volume 92.7 fL (80-94); Mean Platelet Vol. 10.6 fl (6.2-12.0); Monocyte# 0.54 X10^3/uL; Monocyte% 7.7 % (0-10); NRBC Flagged by Analyzer 0 % (0-5); Neutrophil # 4.41 X10^3/uL (2.7-7.7); Neutrophil % 63.3 % (47-70); Platelet Count 192 K/mm3 (150-450); RBC Distribution Width CV 12.3 % (11.6-14.6); Red Blood Count 4.53 M/mm3 (4.6-6.2)
[2019-01-19 11:01] LABS: Color, Urine Straw (Yellow); Glucose, Dipstick Normal (Normal); Ketone-Dipstick Negative (Negative); Leukocyte Esterase-Dipstick Negative /ul (Negative); Nitrite-Dipstick Negative (Negative); Occult Blood-Urine Negative /ul (Negative); Protein-Dipstick Negative (Negative); Urine Bilirubin Dipstick Negative (Negative); Urine Clarity Clear (Clear); Urine Urobilinogen Normal (Normal); Urine pH 6.5 (5.0 - 8.0)
[2019-01-19 11:12] LABS: Microalbumin,Random Urine 16.1 mg/L (NO RANGE EST.); Microalbumin:Creatinine Ratio 58.3 mg/g CRE (<30 mg/g CRE); PTHIN 41.4 pg/mL (18.4-80.1); Protein, Urine (Random) 6.4 mg/dL (<11.9); Protein:Creat Ratio 232 mg/g CRE (0-200); Vitamin D,25 Hydroxy 40.4 ng/mL (29.95-100.01)
[2019-01-19 11:19] LABS: ALB/GLOB Ratio 1.1 RATIO (0.9-2.4); AST(SGOT) 22 U/L (15-37); Alanine Aminotransfer ALT/SGPT 38 U/L (16-61); Albumin, Serum 3.9 g/dL (3.2-5.0); Alkaline Phosphatase 66 U/L (45-117); Anion Gap 9 (5-15); BUN 34 mg/dL (7-18); BUN/Creat Ratio 21.2 RATIO (10-20); Chloride 104 mmol/L (98-107); EST Glomerular Filtration Rate 47 mL/min (>60); Est Glom Filt Rate - Afr Amer 57 mL/min (>60); Globulin 3.6 g/dL (2.2-4.2); Glucose 113 mg/dL (74-106); PSA,Total - Annual Screen 0.87 ng/mL (0.00-4.00); Potassium 4.2 mmol/L (3.5-5.1); Protein, Total 7.5 g/dL (6.4-8.2); Sodium Level 139 mmol/L (136-145); Thyroid Stim Hormone (TSH) 1.82 uIU/mL (0.358-3.74)
[2019-01-20 16:07] LABS: CHOLESTEROL TOTAL 132 mg/dL (100-199); HDL-C 28 mg/dL (>39); HDL-P TOTAL 25.9 umol/L (>=30.5); SMALL LDL-P <90 nmol/L (<=527); TRIGLYCERIDES 295 mg/dL (0-149)
[2019-01-21 11:18] LABS: INSULIN RESISTANCE SCORE 40 (<=45); LDL-C 45 mg/dL (0-99); LDL-P <300 nmol/L (<1000)
== END ==
PROVIDERS: Family Provider Internal Medicine; PCP Internal Medicine; Referring Provider Internal Medicine Nephrology; Visit Provider Internal Medicine Nephrology
DX: I11.9 Hypertensive heart disease without heart failure (principal); E78.00 Pure hypercholesterolemia, unspecified; E55.9 Vitamin D deficiency, unspecified; Z12.5 Encounter for screening for malignant neoplasm of prostate; R80.9 Proteinuria, unspecified; N18.3 Chronic kidney disease, stage 3 (moderate)
CPT/HCPCS: 36415; 80053; 80061; 81001; 82043; 82306; 82570; 83704; 83970; 84153; 84156; 84443; 85025; G0103

== ENCOUNTER → 2019-05-05 08:22 | Outpatient (CLI) | payer OTHER, SELFPAY ==
[2019-05-05 08:33] LABS: Bacteria 0 SEEN /hpf (None Seen); Mucous, Urine 0 SEEN /hpf (<or=2+); Red Blood Cells-Urine 0 SEEN /hpf (0-5); Squamous Epithelial Cells - UA 0 SEEN /hpf (0-5); White Blood Cells 0 SEEN /hpf (0-5)
[2019-05-05 08:52] LABS: Absolute Lymphocyte Count 1.61 X10^3/uL (0.83-4.51); Absolute Neutrophil Count 5.5 X10^3/uL (2.0-7.7); Basophil# 0.06 X10^3/uL; Basophil% 0.8 % (0-1); Eosinophil# 0.08 X10^3/uL; Hemoglobin 14.6 g/dL (13.0-16.5); Lymphocyte # 1.61 X10^3/ul (4.0); Lymphocyte % 20.4 % (19-41); Mean Corp Hgb Conc 33.2 g/dL (32-36); Mean Corpuscular Volume 93.4 fL (80-94); Mean Platelet Vol. 10.4 fl (6.2-12.0); Monocyte# 0.63 X10^3/uL; NRBC Flagged by Analyzer 0 % (0-5); Neutrophil # 5.48 X10^3/uL (2.7-7.7); Neutrophil % 69.5 % (47-70); Platelet Count 211 K/mm3 (150-450); RBC Distribution Width CV 12.6 % (11.6-14.6); RBC Distribution Width SD 43.1 fl (35.1-43.9); Red Blood Count 4.71 M/mm3 (4.6-6.2); White Blood Count 7.9 K/mm3 (4.4-11.0)
[2019-05-05 08:59] LABS: Color, Urine Straw (Yellow); Glucose, Dipstick Normal (Normal); Ketone-Dipstick Negative (Negative); Leukocyte Esterase-Dipstick Negative /ul (Negative); Nitrite-Dipstick Negative (Negative); Occult Blood-Urine Negative /ul (Negative); Protein-Dipstick Negative (Negative); Specific Gravity, Urine 1.005 (1.002-1.030); Urine Bilirubin Dipstick Negative (Negative); Urine Clarity Clear (Clear); Urine Urobilinogen Normal (Normal); Urine pH 6.5 (5.0 - 8.0)
[2019-05-05 09:11] LABS: Microalbumin,Random Urine 6.8 mg/L (NO RANGE EST.); Microalbumin:Creatinine Ratio 27.3 mg/g CRE (<30 mg/g CRE); Protein, Urine (Random) < 6.0 mg/dL (<11.9)
[2019-05-05 09:26] LABS: Vitamin D,25 Hydroxy 51.8 ng/mL (29.95-100.01)
[2019-05-05 09:28] LABS: PTHIN 33.5 pg/mL (18.4-80.1)
[2019-05-05 09:31] LABS: ALB/GLOB Ratio 1.1 RATIO (0.9-2.4); AST(SGOT) 26 U/L (15-37); Alanine Aminotransfer ALT/SGPT 35 U/L (16-61); Alkaline Phosphatase 66 U/L (45-117); Anion Gap 9 (5-15); BUN 22 mg/dL (7-18); BUN/Creat Ratio 15.2 RATIO (10-20); Calcium,Total 9.3 mg/dL (8.5-10.1); Chloride 100 mmol/L (98-107); Creatinine, Serum 1.45 mg/dL (0.70-1.30); EST Glomerular Filtration Rate 53 mL/min (>60); Est Glom Filt Rate - Afr Amer 64 mL/min (>60); Globulin 3.8 g/dL (2.2-4.2); Glucose 117 mg/dL (74-106); Phosphorus 3.3 mg/dL (2.5-4.9); Potassium 4.2 mmol/L (3.5-5.1); Protein, Total 7.8 g/dL (6.4-8.2); Sodium Level 137 mmol/L (136-145); Thyroid Stim Hormone (TSH) 2.04 uIU/mL (0.358-3.74); Uric Acid 6.9 mg/dL (3.5-7.2)
[2019-05-06 16:07] LABS: CHOLESTEROL TOTAL 147 mg/dL (100-199); HDL-C 39 mg/dL (>39); HDL-P TOTAL 27.7 umol/L (>=30.5); SMALL LDL-P 708 nmol/L (<=527); TRIGLYCERIDES 135 mg/dL (0-149)
[2019-05-06 16:49] LABS: LDL-C 81 mg/dL (0-99); LDL-P 1101 nmol/L (<1000)
[2019-05-06 16:50] LABS: INSULIN RESISTANCE SCORE 59 (<=45); LDL SIZE 20.3 nm (>20.5)
== END ==
PROVIDERS: Family Provider Internal Medicine; PCP Internal Medicine; Referring Provider Internal Medicine Nephrology; Visit Provider Internal Medicine Nephrology
DX: I11.9 Hypertensive heart disease without heart failure (principal); N18.3 Chronic kidney disease, stage 3 (moderate); E55.9 Vitamin D deficiency, unspecified; E11.9 Type 2 diabetes mellitus without complications; E78.00 Pure hypercholesterolemia, unspecified; R80.9 Proteinuria, unspecified
CPT/HCPCS: 36415; 80053; 80061; 81001; 82043; 82306; 82570; 83704; 83970; 84100; 84156; 84443; 84550; 85025

== ENCOUNTER → 2019-10-31 09:56 | Outpatient (CLI) | payer OTHER, SELFPAY ==
[2019-10-31 10:17] LABS: Bacteria 0 SEEN /hpf (None Seen); Mucous, Urine 0 SEEN /hpf (<or=2+); Red Blood Cells-Urine 0 SEEN /hpf (0-5); Squamous Epithelial Cells - UA 0 SEEN /hpf (0-5); White Blood Cells 0 SEEN /hpf (0-5)
[2019-10-31 10:28] LABS: Absolute Lymphocyte Count 1.78 X10^3/uL (0.83-4.51); Absolute Neutrophil Count 5.4 X10^3/uL (2.0-7.7); Basophil# 0.07 X10^3/uL; Basophil% 0.9 % (0-1); Eosinophil# 0.08 X10^3/uL; Hematocrit 44.2 % (40-54); Hemoglobin 14.9 g/dL (13.0-16.5); Lymphocyte # 1.78 X10^3/ul (4.0); Lymphocyte % 22.4 % (19-41); Mean Corp Hgb Conc 33.7 g/dL (32-36); Mean Corpuscular Volume 92.1 fL (80-94); Monocyte# 0.64 X10^3/uL; Monocyte% 8.1 % (0-10); NRBC Flagged by Analyzer 0 % (0-5); Neutrophil # 5.35 X10^3/uL (2.7-7.7); Neutrophil % 67.3 % (47-70); Platelet Count 189 K/mm3 (150-450); RBC Distribution Width CV 12.1 % (11.6-14.6); RBC Distribution Width SD 40.5 fl (35.1-43.9); White Blood Count 7.9 K/mm3 (4.4-11.0)
[2019-10-31 10:56] LABS: PTHIN 29.7 pg/mL (18.4-80.1)
[2019-10-31 11:12] LABS: ALB/GLOB Ratio 1.1 RATIO (0.9-2.4); AST(SGOT) 23 U/L (15-37); Alanine Aminotransfer ALT/SGPT 39 U/L (16-61); Albumin, Serum 4.1 g/dL (3.2-5.0); Alkaline Phosphatase 72 U/L (45-117); Anion Gap 5 (5-15); BUN 23 mg/dL (7-18); BUN/Creat Ratio 15.5 RATIO (10-20); Calcium,Total 9.6 mg/dL (8.5-10.1); Chloride 104 mmol/L (98-107); Cholesterol 144 mg/dL (200); Creatinine, Serum 1.48 mg/dL (0.70-1.30); EST Glomerular Filtration Rate 52 mL/min (>60); Est Glom Filt Rate - Afr Amer 63 mL/min (>60); Globulin 3.7 g/dL (2.2-4.2); Glucose 105 mg/dL (74-106); High Density Lipoprotein 34 mg/dL; Phosphorus 3.3 mg/dL (2.5-4.9); Potassium 4.5 mmol/L (3.5-5.1); Protein, Total 7.8 g/dL (6.4-8.2); Sodium Level 137 mmol/L (136-145); Thyroid Stim Hormone (TSH) 2.02 uIU/mL (0.358-3.74); Triglycerides 199 mg/dL; Very Low Density Lipoprotein 40 mg/dL (5-40)
[2019-10-31 11:16] LABS: Vitamin D,25 Hydroxy 36.2 ng/mL
[2019-10-31 11:17] LABS: Color, Urine Straw (Yellow); Glucose, Dipstick Normal (Normal); Ketone-Dipstick Negative (Negative); Leukocyte Esterase-Dipstick Negative /ul (Negative); Nitrite-Dipstick Negative (Negative); Occult Blood-Urine Negative /ul (Negative); Protein-Dipstick Negative (Negative); Specific Gravity, Urine 1.005 (1.002-1.030); Urine Bilirubin Dipstick Negative (Negative); Urine Clarity Clear (Clear); Urine Urobilinogen Normal (Normal)
[2019-10-31 11:39] LABS: Microalbumin,Random Urine 6.1 mg/L (NO RANGE EST.); Microalbumin:Creatinine Ratio 35.1 mg/g CRE (<30 mg/g CRE); Protein, Urine (Random) < 6.0 mg/dL (<11.9)
== END ==
PROVIDERS: PCP Internal Medicine; Referring Provider Internal Medicine; Visit Provider Internal Medicine
DX: E55.9 Vitamin D deficiency, unspecified (principal); E11.9 Type 2 diabetes mellitus without complications; N18.3 Chronic kidney disease, stage 3 (moderate); R80.9 Proteinuria, unspecified
CPT/HCPCS: 36415; 80053; 80061; 81001; 82043; 82306; 82570; 83970; 84100; 84156; 84443; 85025

== ENCOUNTER → 2019-11-01 10:07 | Outpatient (CLI) | payer OTHER, SELFPAY ==
--- NOTE | 2019-11-01 10:18 | US_ITS ---
STUDY: RENAL ULTRASOUND - COMPLETE REASON FOR EXAM: Male, 59 years old. RENAL CYSTS TECHNIQUE: Ultrasound evaluation of the kidneys was performed with real-time and static oliveros-scale imaging. COMPARISON: Comparison is made with prior study dated December 08, 2017. FINDINGS: RIGHT KIDNEY: Normal location of the right kidney, which is normal in size. The right kidney measures 11 cm x 4.7 cm x 4.6 cm. There is a normal cortex of the right kidney. The renal cortex measures 1.5 cm. There is a 1 cm x 0.9 cm x 1 cm cyst. This is unchanged. There are no right renal calculi. There is no right hydronephrosis. DISTAL RIGHT URETER: There is non-visualization of the distal right ureter. There is no demonstrated right ureterovesical junction calculus. There is no demonstrated right ureteral jet. LEFT KIDNEY: Normal location of the left kidney, which is normal in size. The left kidney measures 10.4 cm x 4.4 cm x 5.1 cm. There is a normal cortex of the left kidney. The renal cortex measures 1.9 cm. There is a 2 cm x 1.5 cm x 1.6 cm cyst. This is unchanged. There are no left renal calculi. There is no left hydronephrosis. DISTAL LEFT URETER: There is non-visualization of the distal left ureter. There is no demonstrated left ureterovesical junction calculus. There is no demonstrated left ureteral jet. BLADDER: The distended urinary bladder has a volume of 254 ml. There is a normal wall thickness of the distended urinary bladder. There is no demonstrated mass within the urinary bladder. There are no demonstrated bladder calculi. US/Kidney and Bladder IMPRESSION: Stable small bilateral renal cysts. Electronically Signed: Randy Alejo, at 11:15 EDT , Service support ,
== END ==
PROVIDERS: Family Provider Internal Medicine; PCP Internal Medicine; Referring Provider Internal Medicine; Visit Provider Internal Medicine
DX: N28.1 Cyst of kidney, acquired (principal)
CPT/HCPCS: 76770

== ENCOUNTER → 2020-02-24 11:25 | Outpatient (CLI) | payer OTHER, SELFPAY ==
[2020-02-24 11:30] LABS: Bacteria 0 SEEN /hpf (None Seen); Mucous, Urine 0 SEEN /hpf (<or=2+); Red Blood Cells-Urine 0 SEEN /hpf (0-5); Squamous Epithelial Cells - UA 0 SEEN /hpf (0-5); White Blood Cells 0 SEEN /hpf (0-5)
[2020-02-24 12:40] LABS: Color, Urine Straw (Yellow); Glucose, Dipstick Normal (Normal); Ketone-Dipstick Negative (Negative); Leukocyte Esterase-Dipstick Negative /ul (Negative); Nitrite-Dipstick Negative (Negative); Occult Blood-Urine Negative /ul (Negative); Protein-Dipstick Negative (Negative); Urine Bilirubin Dipstick Negative (Negative); Urine Clarity Clear (Clear); Urine Urobilinogen Normal (Normal); Urine pH 6.5 (5.0 - 8.0)
[2020-02-24 12:50] LABS: PTHIN 35.9 pg/mL (18.4-80.1); Protein, Urine (Random) < 6.0 mg/dL (<11.9)
[2020-02-24 12:51] LABS: Vitamin D,25 Hydroxy 34.8 ng/mL
[2020-02-24 13:00] LABS: Albumin, Serum 3.8 g/dL (3.2-5.0); BUN 20 mg/dL (7-18); BUN/Creat Ratio 15.2 RATIO (10-20); Calcium,Total 9.2 mg/dL (8.5-10.1); Chloride 100 mmol/L (98-107); Creatinine, Serum 1.32 mg/dL (0.70-1.30); EST Glomerular Filtration Rate 59 mL/min (>60); Est Glom Filt Rate - Afr Amer 71 mL/min (>60); Glucose 106 mg/dL (74-106); Phosphorus 3.7 mg/dL (2.5-4.9); Potassium 3.6 mmol/L (3.5-5.1); Sodium Level 134 mmol/L (136-145)
== END ==
PROVIDERS: PCP Internal Medicine; Referring Provider Internal Medicine; Visit Provider Internal Medicine
DX: E55.9 Vitamin D deficiency, unspecified (principal); N18.3 Chronic kidney disease, stage 3 (moderate); R80.9 Proteinuria, unspecified
CPT/HCPCS: 36415; 80069; 81001; 82306; 82570; 83970; 84156

== ENCOUNTER → 2020-04-19 10:46 | Outpatient (CLI) | payer OTHER, SELFPAY ==
[2020-04-19 12:13] LABS: Anion Gap 7 (5-15); BUN 27 mg/dL (7-18); Calcium,Total 9.2 mg/dL (8.5-10.1); Chloride 103 mmol/L (98-107); Creatinine, Serum 1.42 mg/dL (0.70-1.30); EST Glomerular Filtration Rate 54 mL/min (>60); Est Glom Filt Rate - Afr Amer 65 mL/min (>60); Glucose 104 mg/dL (74-106); Potassium 4.3 mmol/L (3.5-5.1); Sodium Level 137 mmol/L (136-145)
== END ==
PROVIDERS: PCP Internal Medicine; Referring Provider Internal Medicine; Visit Provider Internal Medicine
DX: N18.30 Chronic kidney disease, stage 3 unspecified (principal)
CPT/HCPCS: 36415; 80048

== ENCOUNTER → 2020-10-23 11:37 | Outpatient (CLI) | payer OTHER, SELFPAY ==
[2020-10-23 11:44] LABS: Bacteria 0 SEEN /hpf (None Seen); Mucous, Urine 0 SEEN /hpf (<or=2+); Red Blood Cells-Urine 0 SEEN /hpf (0-5); Squamous Epithelial Cells - UA 0 SEEN /hpf (0-5); White Blood Cells 0 SEEN /hpf (0-5)
[2020-10-23 12:20] LABS: Color, Urine Straw (Yellow); Glucose, Dipstick Normal (Normal); Ketone-Dipstick Negative (Negative); Leukocyte Esterase-Dipstick Negative /ul (Negative); Nitrite-Dipstick Negative (Negative); Occult Blood-Urine Negative /ul (Negative); Protein-Dipstick Negative (Negative); Specific Gravity, Urine 1.005 (1.002-1.030); Urine Bilirubin Dipstick Negative (Negative); Urine Clarity Clear (Clear); Urine Urobilinogen Normal (Normal); Urine pH 6.5 (5.0 - 8.0)
[2020-10-23 12:44] LABS: Protein, Urine (Random) < 6.0 mg/dL (<11.9)
[2020-10-23 12:47] LABS: PTHIN 34.5 pg/mL (18.4-80.1)
[2020-10-23 12:52] LABS: Anion Gap 4 (5-15); BUN 28 mg/dL (7-18); BUN/Creat Ratio 19.3 RATIO (10-20); Calcium,Total 9.7 mg/dL (8.5-10.1); Chloride 103 mmol/L (98-107); Creatinine, Serum 1.45 mg/dL (0.70-1.30); EST Glomerular Filtration Rate 53 mL/min (>60); Est Glom Filt Rate - Afr Amer 64 mL/min (>60); Glucose 116 mg/dL (74-106); Phosphorus 3.2 mg/dL (2.5-4.9); Potassium 4.4 mmol/L (3.5-5.1); Sodium Level 136 mmol/L (136-145)
== END ==
PROVIDERS: PCP Internal Medicine; Referring Provider Internal Medicine; Visit Provider Internal Medicine
DX: N18.30 Chronic kidney disease, stage 3 unspecified (principal); E55.9 Vitamin D deficiency, unspecified
CPT/HCPCS: 36415; 80048; 81001; 82306; 82570; 83970; 84100; 84156

== ENCOUNTER → 2021-03-20 08:05 | Outpatient (CLI) | payer OTHER, SELFPAY ==
[2021-03-20 08:59] LABS: Anion Gap 8 (5-15); BUN 34 mg/dL (7-18); BUN/Creat Ratio 22.4 RATIO (10-20); Calcium,Total 9.2 mg/dL (8.5-10.1); Chloride 104 mmol/L (98-107); Creatinine, Serum 1.52 mg/dL (0.70-1.30); EST Glomerular Filtration Rate 50 mL/min (>60); Est Glom Filt Rate - Afr Amer 60 mL/min (>60); Glucose 129 mg/dL (74-106); Potassium 4.2 mmol/L (3.5-5.1); Sodium Level 139 mmol/L (136-145)
== END ==
PROVIDERS: PCP Internal Medicine; Referring Provider Internal Medicine; Visit Provider Internal Medicine
DX: N18.30 Chronic kidney disease, stage 3 unspecified (principal)
CPT/HCPCS: 36415; 80048

== ENCOUNTER 2021-09-18 08:04 | Outpatient (CLI) | payer OTHER, SELFPAY ==
[2021-09-18 08:47] LABS: Protein, Urine (Random) 9.8 mg/dL (<11.9); Protein:Creat Ratio 253 mg/g CRE (0-200)
[2021-09-18 09:02] LABS: Anion Gap 6 (5-15); BUN 31 mg/dL (7-18); BUN/Creat Ratio 18.6 RATIO (10-20); Calcium,Total 9.5 mg/dL (8.5-10.1); Chloride 104 mmol/L (98-107); Creatinine, Serum 1.67 mg/dL (0.70-1.30); EST Glomerular Filtration Rate 45 mL/min (>60); Est Glom Filt Rate - Afr Amer 54 mL/min (>60); Glucose 127 mg/dL (74-106); Potassium 4.3 mmol/L (3.5-5.1); Sodium Level 136 mmol/L (136-145)
== END 2021-09-18 23:59 | disposition home or self-care (01) ==
PROVIDERS: PCP Internal Medicine; Referring Provider Internal Medicine Nephrology; Visit Provider Internal Medicine Nephrology
DX: N18.31 Chronic kidney disease, stage 3a (principal)
CPT/HCPCS: 36415; 80048; 82570; 84156

== ENCOUNTER → 2023-01-21 | Outpatient (CLI) | payer OTHER, SELFPAY ==
[2023-01-21 08:15] LABS: Protein, Urine (Random) 12.1 mg/dL (<11.9); Protein:Creat Ratio 135 mg/g CRE (0-200)
[2023-01-21 08:30] LABS: Anion Gap 5 (5-15); BUN 26 mg/dL (7-18); BUN/Creat Ratio 17.3 RATIO (10-20); Calcium,Total 9.9 mg/dL (8.5-10.1); Chloride 103 mmol/L (98-107); EST Glomerular Filtration Rate 50 mL/min (>60); Est Glom Filt Rate - Afr Amer 61 mL/min (>60); Glucose 112 mg/dL (74-106); Potassium 3.8 mmol/L (3.5-5.1); Sodium Level 137 mmol/L (136-145)
== END | disposition home or self-care (01) ==
LOC: LAB 07:28
PROVIDERS: PCP Internal Medicine; Referring Provider Internal Medicine Nephrology; Visit Provider Internal Medicine Nephrology
DX: N18.31 Chronic kidney disease, stage 3a (principal); R80.9 Proteinuria, unspecified
CPT/HCPCS: 36415; 80048; 82570; 84156

== ENCOUNTER → 2023-03-11 | Outpatient (CLI) | payer OTHER, SELFPAY ==
--- NOTE | 2023-03-15 14:15 | STRESSREP_ITS ---
Stress Test Report Date: 03/11/2023 Procedure: Pharmacologic stress nuclear imaging study Indications: CAD Consent: Per the patient Procedure: The patient underwent pharmacologic (Regadenoson) evaluation with a peak heart rate of 87 beats per minute (55%predicted maximal heart rate) and a peak blood pressure of 164/98 mmHg. The baseline ECG demonstrated sinus rhythm, left bundle branch block. EKG during lexiscan infusion revealed no significant ischemic changes. EKG post infusion revealed no significant ischemic changes [There were no cardiac dysrhythmias pretest, during pharmacologic infusion, or recovery]. [There was no complaint of chest discomfort during pharmacologic infusion or recovery]. The examination was discontinued secondary to completion of protocol. Impression: 1. Lexiscan stress test test is negative for Lexiscan infusion induced EKG changes of ischemia. 2. Lexiscan stress test test is negative for Lexiscan infusion induced chest pain. 3. Results of the nuclear portion of the test is as below Myocardial perfusion imaging study: Technique: The patient was injected with 15 millicuries of technetium 99m Cardiolite and subsequently rest SPECT Cardiolite nuclear imaging was obtained in the horizontal long, vertical long, and short axis views. The patient underwent pharmacologic [Regadenoson 0.4mg] evaluation. Please see above for details. The patient was injected with 45 millicuries of technetium 99m Cardiolite and subsequently stress SPECT Cardiolite nuclear imaging was obtained in the horizon lorie long, vertical long, and short axis views. A gated Cardiolite study at peak stress was obtained. Interpretation: Rest and stress SPECT Cardiolite nuclear imaging status post realignment, norm alization, and attenuation correction demonstrate mild decrease in radioisotope uptake in the inferior wall on both the rest and stress images prior to attenuation correction. After attenuation correction there is normal myocardial radioisotope uptake. Gated images reveal no significant regional wall motion abnormalities. The reported LVEF is 62%. These findings are suggestive of diaphragmatic attenuation artifact. There is no evidence of significant ischemia or infarction. Impression: 1. There is no evidence of significant ischemia or infarction. 2. Estimated ejection fraction is 62%. This note was generated with [employer] software. It may contain incorrect words, spelling, and punctuation that were not noted in checking the note before signing.
== END | disposition home or self-care (01) ==
LOC: CVS 07:02
PROVIDERS: PCP Internal Medicine; Referring Provider Internal Medicine; Visit Provider Internal Medicine
DX: I25.10 Atherosclerotic heart disease of native coronary artery without angina pectoris (principal)
CPT/HCPCS: 78452; 93017; A9500; A4216; J2785

== ENCOUNTER → 2024-01-15 | Outpatient (CLI) | payer OTHER, SELFPAY ==
[2024-01-15 12:33] LABS: Protein, Urine (Random) 8.6 mg/dL (<11.9); Protein:Creat Ratio 340 mg/g CRE (0-200)
[2024-01-15 12:43] LABS: Anion Gap 6 (5-15); BUN 25 mg/dL (7-18); BUN/Creat Ratio 14.8 RATIO (10-20); Calcium,Total 9.3 mg/dL (8.5-10.1); Chloride 106 mmol/L (98-107); Creatinine, Serum 1.69 mg/dL (0.70-1.30); EST Glomerular Filtration Rate 44 mL/min (>60); Est Glom Filt Rate - Afr Amer 53 mL/min (>60); Glucose 114 mg/dL (74-106); Potassium 4.2 mmol/L (3.5-5.1); Sodium Level 138 mmol/L (136-145)
== END | disposition home or self-care (01) ==
PROVIDERS: PCP Internal Medicine; Referring Provider Internal Medicine Nephrology; Visit Provider Internal Medicine Nephrology
DX: N18.31 Chronic kidney disease, stage 3a (principal); R80.9 Proteinuria, unspecified
CPT/HCPCS: 36415; 80048; 82570; 84156

== ENCOUNTER → 2024-05-30 | Outpatient (CLI) | payer OTHER, SELFPAY | END | disposition home or self-care (01) | PROVIDERS: PCP Internal Medicine; Referring Provider Ophthalmology; Visit Provider Ophthalmology | DX: L02.01 Cutaneous abscess of face (principal) | CPT/HCPCS: 87070; 87075; 87205; 87640 ==